=== PATIENT | female | born 1965 | race Caucasian/White ===

== ENCOUNTER → 2019-10-29 12:26 | Outpatient (BNVA) | payer BC, SELFPAY | PROVIDERS: PCP Family Medicine; Visit Provider Nurse Practitioner | DX: J06.9 Acute upper respiratory infection, unspecified (principal); J02.9 Acute pharyngitis, unspecified | CPT/HCPCS: 87081; 87880 ==

== ENCOUNTER 2020-01-05 06:00 | Outpatient (RCR) | payer BC, SELFPAY | END 2020-01-07 23:59 | disposition home or self-care (01) | LOC: SPT 06:00 | PROVIDERS: PCP Family Medicine; Referring Provider Orthopaedic Surgery; Visit Provider Orthopaedic Surgery | DX: M25.561 Pain in right knee (principal); M25.661 Stiffness of right knee, not elsewhere classified; R26.89 Other abnormalities of gait and mobility | CPT/HCPCS: 97110; 97161; 97530 ==

== ENCOUNTER 2020-01-08 06:00 | Outpatient (RCR) | payer BC, SELFPAY | END 2020-02-07 23:59 | disposition home or self-care (01) | LOC: SPT 06:00 | PROVIDERS: PCP Family Medicine; Referring Provider Orthopaedic Surgery; Visit Provider Orthopaedic Surgery | DX: M25.561 Pain in right knee (principal) | CPT/HCPCS: 97110 ==

== ENCOUNTER 2020-02-08 06:00 | Outpatient (RCR) | payer BC, SELFPAY | END 2020-03-08 23:59 | disposition home or self-care (01) | LOC: SPT 06:00 | PROVIDERS: PCP Family Medicine; Visit Provider Orthopaedic Surgery | DX: M25.561 Pain in right knee (principal) | CPT/HCPCS: 97110 ==

== ENCOUNTER 2020-04-27 06:00 | Outpatient (RCR) | payer BC, SELFPAY | END 2020-05-09 23:59 | disposition home or self-care (01) | LOC: SPT 06:00 | PROVIDERS: PCP Family Medicine; Referring Provider Family Medicine; Visit Provider Family Medicine | DX: M79.604 Pain in right leg (principal); M79.605 Pain in left leg; R29.898 Other symptoms and signs involving the musculoskeletal system; I87.2 Venous insufficiency (chronic) (peripheral) | CPT/HCPCS: 97110; 97161 ==

== ENCOUNTER 2021-01-04 10:38 | Outpatient (CLI) | payer OTHER, SELFPAY ==
--- NOTE | 2021-01-04 10:42 | XR_ITS ---
WS: [id number] Exam: XR lumbar spine 2-3V* [id number] Date/Time of Exam: 01/04/2021 10:48 AM Reason For Exam: OSTEOARTHRITIS/DDD No fracture or dislocation. Mild degenerative thinning of the L5-S1 disc with vacuum phenomena. Remai juan disc spaces are preserved. Mild dextroscoliosis. After elements are intact. XR/XR lumbar spine 2-3V* [id number] IMPRESSION: 1. Mild degenerative disc changes at L5-S1. 2. Mild dextroscoliosis. 3. No acute fracture or malalignment.
--- NOTE | 2021-01-04 10:42 | XR_ITS ---
WS: [id number] Exam: XR knee right 1-2V [id number] Date/Time of Exam: 01/04/2021 10:48 AM Reason For Exam: OSTEOARATHRITIS L KNEE No fracture or dislocation. The joint compartments are relatively well maintained. No joint effusion. XR/XR knee LT 1-2V [id number] IMPRESSION: 1. Negative right knee.
== END 2021-01-04 10:39 | disposition home or self-care (01) ==
LOC: RAD 10:38
PROVIDERS: PCP Family Medicine; Visit Provider Dermatology
DX: M17.12 Unilateral primary osteoarthritis, left knee (principal); Z02.71 Encounter for disability determination; M51.36 Other intervertebral disc degeneration, lumbar region
CPT/HCPCS: 72100; 73560

== ENCOUNTER 2021-06-13 06:00 | Outpatient (RCR) | payer BC, OTHER, SELFPAY | END 2021-07-09 23:59 | disposition home or self-care (01) | LOC: SPT 06:00 | PROVIDERS: Referring Provider Family Medicine; Visit Provider Family Medicine | DX: G89.29 Other chronic pain (principal); M54.16 Radiculopathy, lumbar region; M17.12 Unilateral primary osteoarthritis, left knee | CPT/HCPCS: 97161 ==

== ENCOUNTER → 2021-06-15 17:29 | Outpatient (BNVA) | payer BC, SELFPAY | PROVIDERS: Visit Provider Nurse Practitioner | DX: S69.90XA Unspecified injury of unspecified wrist, hand and finger(s), initial encounter (principal); X58.XXXA Exposure to other specified factors, initial encounter; S62.511A Displaced fracture of proximal phalanx of right thumb, initial encounter for closed fracture | CPT/HCPCS: 73130 ==

== ENCOUNTER 2021-06-19 16:21 | Outpatient (CLI) | payer BC, OTHER, SELFPAY | END 2021-06-19 16:22 | disposition home or self-care (01) | LOC: SPT 16:22 | PROVIDERS: Visit Provider Specialist | DX: Z46.89 Encounter for fitting and adjustment of other specified devices (principal); M54.16 Radiculopathy, lumbar region | CPT/HCPCS: 97760; L3984 ==

== ENCOUNTER → 2021-10-15 10:24 | Outpatient (BNVA) | payer BC, SELFPAY | PROVIDERS: Visit Provider Family Medicine | DX: R05.9 Cough, unspecified (principal); J06.9 Acute upper respiratory infection, unspecified; Z20.822 Contact with and (suspected) exposure to COVID-19 | CPT/HCPCS: 87400; 87635 ==

== ENCOUNTER → 2022-03-22 12:10 | Outpatient (BNVA) | payer BC, SELFPAY | PROVIDERS: PCP Family Medicine; Visit Provider Family Medicine | DX: Z13.6 Encounter for screening for cardiovascular disorders (principal); R60.1 Generalized edema; G25.81 Restless legs syndrome; J45.909 Unspecified asthma, uncomplicated | CPT/HCPCS: 80053; 80061; 84443; 85025 ==

== ENCOUNTER → 2022-04-26 11:36 | Outpatient (BNVA) | payer MEDICAID, SELFPAY | PROVIDERS: PCP Family Medicine; Visit Provider Family Medicine | DX: R60.1 Generalized edema (principal); G25.81 Restless legs syndrome; E66.01 Morbid (severe) obesity due to excess calories; Z68.43 Body mass index [BMI] 50.0-59.9, adult | CPT/HCPCS: 80048 ==

== ENCOUNTER → 2022-10-12 08:19 | Outpatient (BNVA) | payer OTHER, MEDICAID, SELFPAY | PROVIDERS: PCP Family Medicine; Visit Provider Family Medicine | DX: Z01.419 Encounter for gynecological examination (general) (routine) without abnormal findings (principal) | CPT/HCPCS: 88175 ==

== ENCOUNTER 2022-10-26 08:17 | Outpatient (CLI) | payer MEDICAID, SELFPAY ==
--- NOTE | 2022-10-26 08:27 | MM_ITS ---
WS: [id number] SCREENING DIGITAL BREAST TOMOSYNTHESIS MAMMOGRAM WITH CAD HISTORY: screening COMPARISON: None available. Bilateral CC and MLO with tomosynthesis and synthetic mammography submitted. Computer aided detection analyzed. Breast composition: There are scattered areas of fibroglandular density. Well-circumscribed nodule me asuring 8 mm in the inferior lateral RIGHT breast. This is at a middle depth at approximately 8:00. T his may be a lymph node. There are additional benign lymph nodes towards the axilla. Additional bilat eral benign calcifications. MM/[place] [id number] IMPRESSION: BI-RADS: 0-Incomplete: Need additional imaging evaluation FOLLOW UP: Need Additional Imaging Recommendation: Limited RIGHT breast ultrasound, ultrasound directed to the RIG HT breast near 8:00, middle depth.
== END 2022-10-26 08:18 | disposition home or self-care (01) ==
PROVIDERS: PCP Family Medicine; Visit Provider Family Medicine
DX: Z12.31 Encounter for screening mammogram for malignant neoplasm of breast (principal)
CPT/HCPCS: 77063; 77067; 88175

== ENCOUNTER → 2022-11-05 11:35 | Outpatient (BNVA) | payer MEDICAID, SELFPAY | PROVIDERS: PCP Family Medicine; Visit Provider Nurse Practitioner Family | DX: M25.562 Pain in left knee (principal) | CPT/HCPCS: 73562 ==

== ENCOUNTER → 2022-11-06 16:46 | Outpatient (BNVA) | payer MEDICAID, SELFPAY | PROVIDERS: PCP Family Medicine; Visit Provider Family Medicine | DX: N89.8 Other specified noninflammatory disorders of vagina (principal) | CPT/HCPCS: 87070; 87077; 87184; 87205 ==

== ENCOUNTER 2022-11-22 07:48 | Outpatient (CLI) | payer MEDICAID, SELFPAY ==
--- NOTE | 2022-11-22 07:53 | US_ITS ---
WS: [id number] ULTRASOUND RIGHT BREAST HISTORY: Follow up screening mammogram for abnormality. COMPARISON: 10/26/2022 TECHNIQUE: 2-D and Doppler. Hypoechoic mass with shadowing in the RIGHT breast at 8:00, 3 cm from the nipple. Hypoechoic mass allen sures 4 x 3 x 8 mm and does correspond to the mammographic abnormality. There is also a smaller cyst at 9:00, 1 cm from the nipple. US/US breast RT limited* [id number] IMPRESSION: BI-RADS: 4-Suspicious Finding-Biopsy Should Be Considered FOLLOW-UP: Biopsy Recommended Ultrasound-guided biopsy recommended RIGHT breast mass at 8:00. Notified Lilian Carrion DO at 11/22/2022 8:29 AM.
== END 2022-11-22 07:49 | disposition home or self-care (01) ==
PROVIDERS: PCP Family Medicine; Visit Provider Family Medicine
DX: R92.8 Other abnormal and inconclusive findings on diagnostic imaging of breast (principal); N63.13 Unspecified lump in the right breast, lower outer quadrant
CPT/HCPCS: 76642

== ENCOUNTER 2022-12-06 11:13 | Outpatient (CLI) | payer MEDICAID, SELFPAY ==
--- NOTE | 2022-12-06 12:00 | US_ITS ---
WS: [id number] ULTRASOUND-GUIDED RIGHT BREAST BIOPSY HISTORY: Abnormality. COMPARISON: 11/22/2022, 10/26/2022. Procedure, risks and complications are explained to the patient. Medications are reviewed. Consent is obtained. The mass in the RIGHT breast is localized with ultrasound. Mass localizes to 8:00, 3 cm from the nipp le. Skin is cleansed with ChloraPrep and anesthetized with 1% buffered lidocaine. Small dermatome is made. Under sterile conditions mass is biopsied with a 14-gauge Achieve needle. Multiple core biopsie s are performed. Material placed in formalin and sent to pathology for review. No complications encou ntered. Breast tissue marker (Bard ultrasound enhanced ribbon): None. Patient left the radiology suite with no complications. Patient is instructed to return to [facility] with any concerns. US/[place] [id number] IMPRESSION: 1. Uncomplicated core needle biopsy RIGHT breast mass at 8:00, 3 cm from the n ipple. PATHOLOGY: Benign breast tissue with focal tubular adenosis. No atypia or malig randolph. RECOMMENDATION: 6 month RIGHT diagnostic mammogram and ultrasound follow-up rec ommended. Six-month follow-up strongly recommended to confirm there is no incre ase in size of the abnormality in the RIGHT breast.
== END 2022-12-06 11:14 | disposition home or self-care (01) ==
LOC: RAD 11:15
PROVIDERS: PCP Family Medicine; Visit Provider Family Medicine
DX: N63.13 Unspecified lump in the right breast, lower outer quadrant (principal); N60.21 Fibroadenosis of right breast
CPT/HCPCS: 19083; 88305

== ENCOUNTER 2023-01-25 02:37 | Emergency (ER) | payer MEDICAID, SELFPAY ==
[2023-01-25] VITALS (7 sets, daily range): BP systolic 119–233; BP diastolic 64–162; PULSE 54–84; RESP 16–22; TEMP 36.3; O2SAT 94–97; BMI 45.3
--- NOTE | 2023-01-25 02:51 | ECG_ITS ---
[facility] Test Date: 2023-01-25 Pat Name: Libia Hyaden Department: Room: Gender: Female Joint Finisher: : 1965 Requested By: Rian Henderson Order Number: [id number] Olivia MD: Yaa Castaneda M.D. Measurements Intervals [place] Rate: 67 P: 63 VT: 180 QRS: 4 QRSD: 85 T: 39 QT: 383 QTc: 405 Interpretive Statements SINUS RHYTHM LOW QRS VOLTAGE IN PRECORDIAL LEADS [QRS DEFLECTION < 1.0 mV IN CHEST LEADS] POSSIBLE ANTERIOR MYOCARDIAL INFARCTION , PROBABLY OLD [30 ms Q WAVE IN V3/V4, OR R < 0.2 mV IN V4] No previous ECG available for comparison Electronically Signed On 01-25-2023 12:34:45 CDT by Yaa Castaneda M.D. [id number]
--- NOTE | 2023-01-25 03:00 | XRR_ITS ---
PROCEDURE INFORMATION: Exam: XR Chest Exam date and time: 01/25/2023 3:23 AM Age: 57 years old Clinical indication: Prior surgery; Surgery date: 6+ months; Surgery type: Thyroidectomy; Patient HX: C/O epigastric pain; Additional info: Cp TECHNIQUE: Imaging protocol: Radiologic exam of the chest. Views: 1 view. COMPARISON: No relevant prior studies available. FINDINGS: Lungs: Unremarkable. No consolidation. Small left lower lung calcified granulomas. Pleural spaces: Unremarkable. No pleural effusion. No pneumothorax. Heart/Mediastinum: Unremarkable. No cardiomegaly. Bones/joints: Unremarkable. XR/XR chest 1V portable [id number] IMPRESSION: No acute findings.
--- NOTE | 2023-01-25 03:00 | XRR_ITS ---
PROCEDURE INFORMATION: Exam: XR Lumbosacral Spine Exam date and time: 01/25/2023 3:23 AM Age: 57 years old Clinical indication: Injury or trauma; Blunt trauma (contusions or hematomas); Patient HX: Fall yesterday. C/O worsening mid back pain TECHNIQUE: Imaging protocol: Radiologic exam of the lumbosacral spine. Views: 2 or 3 views. COMPARISON: CR XR lumbar spine 2-3V* [id number] 01/04/2021 10:55 AM FINDINGS: Bones/joints: Mild lordosis. L5-S1 facet joint arthropathy changes with sclerosis and hypertrophy. Mild severity multilevel disc height loss. No acute fracture. Normal alignment. Soft tissues: Unremarkable. XR/XR lumbar spine 2-3V* [id number] IMPRESSION: No acute findings.
--- NOTE | 2023-01-25 03:01 | W.ED.ABDPA2 ---
HPI - Abdominal Pain General: Chief Complaint: Abdominal Pain Stated Complaint: back pain Time Seen by Provider: 01/25/23 02:51 Source: patient Mode of arrival: ambulatory Limitations: no limitations History of Present Illness: 57-year-old female states she did have a fall yesterday did not believe she really injuries to things she states since this evening though she has been having back pain. She states that sharp pain in her mid back states it radiates into her abdomen and some radiation to her chest. States pain is sharp in nature worse with movement and worse with touch. She did vomit once denies any fevers. Associated Symptoms: Reports vomiting; Denies chills, diarrhea, dysuria, fever(s) and nausea Review of Systems Const: Denies: fever(s), chills or change in appetite Eyes: Denies: blurry vision or eye discomfort ENMT: Denies: throat pain or dental pain Card: Denies: chest pain Resp: Denies: dyspnea GI: Reports: abdominal pain and vomiting; Denies: nausea or diarrhea : Denies: dysuria Musc: Reports: back pain; Denies: neck pain Skin/Breast: Denies: rash Neuro: Denies: headache(s) PFSH ED PFSH: Medical History Edema Extensor tendinitis of foot Otitis media Restless legs syndrome Seasonal allergies Surgical History History of appendectomy History of section History of elbow surgery Both History of partial thyroidectomy History of thumb surgery Bilateral Family History Other Anesthesia complication CAD (coronary artery disease) Hyperlipidemia Hypertension Lung disease Stroke Denies family history of Diabetes Clotting disorder Dementia Psychiatric illness Chronic kidney disease (CKD) Suicide Bleeding disorder Family history of premature coronary artery disease Cancer Social History Alcohol intake: never Substance/Drug Use: never Adopted: No Lives independently: Yes Household members: spouse Marital status: Physical Exam Const: COMMON NORMALS: no acute distress, patient oriented x3 and healthy appearing HENMT: COMMON NORMALS: normocephalic and atraumatic HEAD & SCALP: normocephalic and atraumatic Neck/C-Spine: COMMON NORMALS: full ROM and supple Chest: COMMONS NORMALS: normal inspection of the chest and normal palpation of entire chest wall Resp: COMMON NORMALS: normal respiratory effort, No retractions, No use of accessory muscles and clear to auscultation bilaterally AUSCULTATION: clear to auscultation bilaterally Cardio: COMMON NORMALS: regular rate, regular rhythm and No murmurs present (Cardio) RATE: regular rate RHYTHM: regular rhythm GI: COMMON NORMALS: Normal to inspection, nondistended, normoactive bowel sounds present, Soft to palpation, non-tender and no masses PALPATION: Yes Soft to palpation Back/Pelvis: OTHER: Paraspinal tenderness to the mid back no midline tenderness Extremity: COMMON NORMALS: normal to inspection and full ROM Neuro: COMMON NORMALS: patient oriented x3, moves all extremities and no focal motor deficits Psych: COMMON NORMALS: mental status grossly normal, Normal thought process present and cooperative THOUGHT PROCESS: Normal thought process present Skin: COMMON NORMALS: no rashes or lesions noted and no wounds GENERAL SKIN EXAM: no rashes or lesions noted Course Vital Signs: Vital signs: Vital Signs Temperature 97.4 F L 01/25/23 02:50 Pulse Rate 84 01/25/23 02:50 Respiratory Rate 16 01/25/23 03:07 Blood Pressure 233/162 01/25/23 02:50 Pulse Oximetry 95 01/25/23 03:07 Oxygen Delivery Me thod Room Air 01/25/23 02:50 MDM - Abdominal Pain Medical Decision Making Patient presents here with back pains likely muscular in nature she is point tender blood work and urine here is normal no signs of kidney stone no signs of acute surgical abdomen or appendicitis she is stable for discharge we will place her on Naprosyn and Robaxin she is to follow-up with PCP and return if worsening. Medical Records I reviewed the patient's medical records. Lab Data I reviewed the patient's lab results. 01/25/23 03:05 01/25/23 03:05 Labs/Radiology: Laboratory Results WBC 6.5 10^3/uL (4.0-10.0) 01/25/23 03:05 RBC 5.21 10^6/uL (4.1-5.3) 01/25/23 03:05 Hgb 13.3 g/dL (11.5-15.3) 01/25/23 03:05 Hct 44.5 % (37.0-47.0) 01/25/23 03:05 MCV 85.4 fl (81-99) 01/25/23 03:05 MCH 25.5 pg (28.0-34.0) L 01/25/23 03:05 MCHC 29.9 g/dL (30.0-36.0) L 01/25/23 03:05 RDW 13.7 % (12.1-15.1) 01/25/23 03:05 Plt Count 280 10^3/cmm (130-400) 01/25/23 03:05 MPV 9.5 fL (7.4-10.4) 01/25/23 03:05 Neut % (Auto) 59.0 % 01/25/23 03:05 Lymph % (Auto) 28.4 % 01/25/23 03:05 Kane % (Auto) 9.8 % 01/25/23 03:05 Eos % (Auto) 2.1 % 01/25/23 03:05 Baso % (Auto) 0.5 % 01/25/23 03:05 Neut # (Auto) 3.86 10^3/uL (1.8-7.7) 01/25/23 03:05 Lymph # (Auto) 1.9 10^3/uL (0.8-4.8) 01/25/23 03:05 Kane # (Auto) 0.6 10^3/uL (0.2-0.9) 01/25/23 03:05 Eos # (Auto) 0.1 10^3/uL (0.0-0.8) 01/25/23 03:05 Baso # (Auto) 0.0 10^3/uL (0.0-0.1) 01/25/23 03:05 Nucleated RBC % (auto) 0 % 01/25/23 03:05 Nucleated RBCs # 0.0 /100WBC 01/25/23 03:05 EKG Data EKG 1: I personally reviewed and interpreted this EKG as follows: EKG interpretation date: 01/25/23 EKG interpretation time: 02:51 Interpretation: nsr hr [address] or t wave abnormalities qrs 85 qtc 398 Discharge Plan Discharge Condition: Stable Prescriptions: No Action Prilosec 10 mg susp,delayed release for recon 10 mg PO DAILY budesonide-formoterol [Symbicort] 160-4.5 mcg/actuation HFA aerosol inhaler 2 puff inhalation Q12H Qty: 10.2 2RF ropinirole 0.5 mg tablet 0.5 mg PO QID Qty: 120 5RF montelukast [Singulair] 10 mg tablet 10 mg PO DAILY Qty: 30 5RF fluconazole [Diflucan] 150 mg tablet 150 mg PO Q3D Qty: 2 0RF Rx Instructions: may repeat second dose 72 hrs after first dose if symptoms persist loratadine [Claritin] 10 mg tablet 10 mg PO DAILY multivitamin with iron [Daily Vitamin with Iron] Tablet 1 tab PO DAILY magnesium 200 mg tablet 200 mg PO DAILY Victoza 3-Gibran 0.6 mg/0.1 mL (18 mg/3 mL) pen injector 1.2 mg SUBCUT Q24H Qty: 9 0RF Rx Instructions: Please dispense needle tips as well. prednisone 20 mg tablet 20 mg PO DAILY Qty: 5 0RF Rx Instructions: Take in the AM with food diclofenac sodium 3 % gel 1 applic topical BID Qty: 100 0RF cyclobenzaprine 5 mg tablet 5 mg PO TID PRN (Reason: muscle spasm) Qty: 20 0RF albuterol sulfate 90 mcg/actuation aerosol powdr breath activated 2 inh inhalation Q6H PRN (Reason: shortness of breath or wheezing) Qty: 1 1RF Referrals: Lilian Carrion DO [Primary Care Provider] - Coding Level of Care Code ED Sheet Combining Operator for Levi Moraels
--- NOTE | 2023-01-25 03:03 | XRR_ITS ---
PROCEDURE INFORMATION: Exam: XR Thoracic Spine Exam date and time: 01/25/2023 3:23 AM Age: 57 years old Clinical indication: Injury or trauma; Blunt trauma (contusions or hematomas); Patient HX: Fall yesterday. C/O worsening mid back pain TECHNIQUE: Imaging protocol: Radiologic exam of the thoracic spine. Views: 3 views. COMPARISON: CR XR lumbar spine 2-3V* [id number] 01/04/2021 10:55 AM FINDINGS: Bones/joints: Normal. No acute fracture. Normal alignment. Soft tissues: Unremarkable. XR/XR thoracic spine 3V* [id number] IMPRESSION: No acute findings.
[2023-01-25] MEDS: ondansetron 2 mg/ML SDV 2 mL 4 MG IVP (03:07)
[2023-01-25] MEDS: HYDROmorphone 1 mg/mL INJ 1 mL IVP (03:07)
[2023-01-25 03:12] LABS: Basophils % 0.5 %; Eosinophils # 0.1 10^3/uL (0.0-0.8); Eosinophils % 2.1 %; Hematocrit 44.5 % (37.0-47.0); Hemoglobin 13.3 g/dL (11.5-15.3); Lymphocytes # 1.9 10^3/uL (0.8-4.8); Lymphocytes % 28.4 %; Mean Corpuscular HGB Conc 29.9 g/dL (30.0-36.0); Mean Corpuscular Hemoglobin 25.5 pg (28.0-34.0); Mean Corpuscular Volume 85.4 fl (81-99); Mean Platelet Volume 9.5 fL (7.4-10.4); Monocytes # 0.6 10^3/uL (0.2-0.9); Monocytes % 9.8 %; Neutrophils # 3.86 10^3/uL (1.8-7.7); Nucleated Red Blood Cells % 0 %; Platelet Count 280 10^3/cmm (130-400); Red Blood Count 5.21 10^6/uL (4.1-5.3); Red Cell Distribution Width 13.7 % (12.1-15.1); White Blood Count 6.5 10^3/uL (4.0-10.0)
[2023-01-25 03:34] LABS: Troponin(5th) Baseline 7 ng/L (0-10)
[2023-01-25 03:36] LABS: Alanine Aminotransferase 20 U/L (0-33); Alkaline Phosphatase 107 U/L (35-105); Blood Urea Nitrogen 13 mg/dL (6-20); Calcium 9.2 mg/dL (8.5-10.5); Carbon Dioxide 24 mmol/L (22-29); Chloride 106 mmol/L (98-107); Globulin 2.6 g/dL (1.3-4.6); Glomerular Filtration Rate 74.5 mL/min (90-130); Glucose 135 mg/dL (65-115); Osmolality Calculated 294 mOsm/kg (285-295); Sodium 141 mmol/L (136-145); Total Bilirubin 0.3 mg/dL (0.15-1.2); Total Protein 6.6 g/dL (6.6-8.7)
[2023-01-25 03:37] LABS: Anion Gap 15.2 (5-19); Aspartate Amino Transferase 18 U/L (0-32); Potassium 4.2 mmol/L (3.5-5.1)
[2023-01-25 03:54] LABS: Add Urine Microscopic? NO; Charge for UA Resulting for Rev
[2023-01-25 04:00] LABS: Urine Appearance Clear (CLEAR); Urine Color Yellow (Yellow)
[2023-01-25 04:01] LABS: Bilirubin Urine Neg (Negative); Blood Urine Neg (Negative); Glucose Urine UA Norm (Normal); Ketones Urine Negative (Negative); Leukocyte Esterase Urine Negative (Negative); Nitrate Urine Negative (Negative); Protein Urine Neg (Negative); Urobilinogen Urine Neg (Negative); pH Urine 5 (5-7)
--- NOTE | 2023-01-25 04:11 | USR_ITS ---
PROCEDURE INFORMATION: Exam: US Abdomen, Limited; Right Upper Quadrant Exam date and time: 01/25/2023 4:23 AM Age: 57 years old Clinical indication: Abdominal pain; Other: Non-characteristic for gb, pain is mid back pain, which radiates across the upper abdomen; Additional info: Ruq pain TECHNIQUE: Imaging protocol: Real time ultrasound of the abdomen with image documentation. Limited exam focused on the right upper quadrant. COMPARISON: No relevant prior studies available. FINDINGS: Liver: Normal. No masses. Gallbladder: Cholelithiasis. Diffusely thickened gallbladder wall measuring at least 12 mm. Biliary ducts: Negative for dilation. Common bile duct 5-6 mm. Pancreas: Visualized pancreas is unremarkable. Right kidney: Severely atrophic right renal cortex without hydronephrosis. Probable simple upper pole cortical cyst. Left kidney: Severe left renal cortical thinning. Negative for hydronephrosis. Aorta: Abdominal aorta is nonaneurysmal. Portal venous: Portal vein is patent with normal flow direction. Intraperitoneal space: Negative for intraperitoneal fluid collection. US/US abdomen complete* [id number] IMPRESSION: Cholelithiasis with significant diffuse gallbladder wall thickening. Consider acute cholecystitis. HIDA scan correlation may be valuable for further evaluation.
[2023-01-25 05:36] LABS: Troponin 5 2HR Delta 1.1 ABS# (0-10)
--- NOTE | 2023-01-25 08:35 | DCPLANNER ---
Addendum entered by Bina Gonzalez 02/20/23 10:18: Patient had a followup appointment scheduled with general surgery - patient did attend appointment. Addendum entered by Bnia Gonzalez 02/04/23 10:42: Patient has a follow up appointment scheduled for Sunday, February 19, 2023 at 10:[address] Nugent at general surgery. Original Note: manager protein had message to schedule a follow up appointment for patient with general surgery. manager protein sent patients information to the front office staff at general surgery. Patients information will be printed and reviewed. Clinic will call patient with appointment information.
== END 2023-01-25 05:21 | disposition home or self-care (01) ==
PROVIDERS: Emergency Provider Emergency Medicine; PCP Family Medicine
DX: K80.20 Calculus of gallbladder without cholecystitis without obstruction (principal)
CPT/HCPCS: 71045; 72072; 72100; 76700; 80053; 81003; 84484; 85025; 93005; 96374; 96375; 99285; J1170; J2405

== ENCOUNTER → 2023-02-19 10:32 | Outpatient (BNVA) | payer MEDICARE, MEDICAID, SELFPAY | PROVIDERS: PCP Family Medicine; Referring Provider Emergency Medicine; Visit Provider Surgery | DX: K80.20 Calculus of gallbladder without cholecystitis without obstruction (principal) | CPT/HCPCS: 99203 ==

== ENCOUNTER 2023-03-15 06:57 | Emergency (ER) | payer MEDICARE, MEDICAID, SELFPAY ==
[2023-03-15] VITALS (17 sets, daily range): BP systolic 108–168; BP diastolic 66–98; PULSE 75; RESP 17–18; TEMP 36.6; O2SAT 87–97; BMI 47.0
--- NOTE | 2023-03-15 07:48 | US_ITS ---
WS: [id number] Gallbladder and right upper quadrant ultrasound, 03/15/2023 Clinical Data: Right upper quadrant abdominal pain, N/V/D Comparison: Right upper quadrant ultrasound, 01/25/2023 Findings: The gallbladder shows multiple stones unchanged. The wall measures 0.2 cm with no pericholecystic flu id. The common bile duct is 0.3 cm and there are no intrahepatic ductal abnormalities. Liver shows no cysts, masses or dilated intrahepatic ducts. The portal vein shows normal flow. The li marisol is slightly enlarged at 20.72 cm. The echotexture is mixed. The pancreas is obscured by overlying bowel gas but no cyst, pseudocyst, or evidence of pancreatitis is noted. Right kidney measures 11.0 cm and no cyst, masses or hydronephrosis can be seen. However there is cor tical thinning. The aorta and inferior vena cava show no vascular abnormalities. US/US gall bladder [id number] Impression: 1. Cholelithiasis. 2. Hepatomegaly. 3. Cortical thinning of right kidney.
--- NOTE | 2023-03-15 07:50 | W.ED.ABDPA2 ---
Documented by User: DEIDRE Araya 03/15/23 11:05 HPI - Abdominal Pain General: Chief Complaint: Abdominal Pain Stated Complaint: abd pain, N/V Time Seen by Provider: 03/15/23 07:04 History of Present Illness: Patient is a 57-year-old female who comes to the ED with abdominal pain, nausea and vomiting. Patient states she is had these gallbladder issues in the past and was seen here in the ED back on January 25 for same complaint and has seen the general surgeon Dr. Nugent and has a scheduled cholecystectomy next week. Symptoms started when she woke up approximately 2 to 3 days ago. She was having right upper quadrant abdominal pain that she rates a 8 out of 10. Endorses nausea and vomiting as well and has had trouble keeping any food or fluids down. Endorses chills and diarrhea. Patient says she took some tramadol yesterday for pain and it did not help. Denies any fevers, blood in stool, dysuria or hematuria. Associated Symptoms: Reports diarrhea, nausea and vomiting; Denies chills, constipation, dysuria, fever(s), hematochezia and hematuria Review of Systems Const: Denies: fever(s), chills or fatigue Eyes: Denies: change in vision or eye discomfort ENMT: Denies: throat pain, odynophagia, nasal discharge or nasal congestion Card: Denies: chest pain, palpitations, edema, swelling of feet/ankles, dyspnea on exertion or orthopnea Resp: Denies: dyspnea, productive cough or non-productive cough GI: Reports: abdominal pain, nausea, vomiting and diarrhea; Denies: constipation or hematochezia : Denies: flank pain, dysuria or hematuria Musc: Denies: neck pain, back pain or extremity swelling Skin/Breast: Denies: rash or new lesions Neuro: Denies: headache(s), numbness in extremities or weakness in extremities PFSH ED PFSH: Medical History Edema Extensor tendinitis of foot Otitis media Restless legs syndrome Seasonal allergies Surgical History History of appendectomy History of section History of elbow surgery Both History of partial thyroidectomy History of thumb surgery Bilateral Hx of colonoscopy with polypectomy 3 yrs ago Hx of meniscectomy of right knee Family History Other Anesthesia complication CAD (coronary artery disease) Hyperlipidemia Hypertension Lung disease Stroke Denies family history of Diabetes Clotting disorder Dementia Psychiatric illness Chronic kidney disease (CKD) Suicide Bleeding disorder Family history of premature coronary artery disease Cancer Social History Alcohol intake: never Substance/Drug Use: never Adopted: No Lives independently: Yes Household members: spouse Marital status: Physical Exam Const: COMMON NORMALS: no acute distress, patient oriented x3 and alert HENMT: COMMON NORMALS: normocephalic HEAD & SCALP: normocephalic MOUTH: Normal oral and palatal mucosa present THROAT: posterior oropharynx normal and uvula midline Neck/C-Spine: COMMON NORMALS: supple GENERAL: Yes normal visual inspection Resp: COMMON NORMALS: normal respiratory effort, No retractions, No use of accessory muscles and clear to auscultation bilaterally AUSCULTATION: clear to auscultation bilaterally Cardio: COMMON NORMALS: regular rate, regular rhythm, S1 normal heart sound present, S2 normal heart sound present, No gallops present (Cardio), No clicks present (Cardio), No murmurs present (Cardio) and Peripheral pulses 2+ throughout RATE: regular rate RHYTHM: regular rhythm HEART SOUNDS: S1 normal heart sound present and S2 normal heart sound present PERIPHERAL PULSES: Peripheral pulses 2+ throughout GI: COMMON NORMALS: Normal to inspection, nondistended, normoactive bowel sounds present, Soft to palpation and no masses PALPATION: Yes Soft to palpation and Yes Tenderness to palpation present (GI) Details: RUQ OTHER: No signs of acute abdomen. : COMMON NORMALS: Yes no CVA tenderness BLADDER/KIDNEY EXAM: Yes no CVA tenderness Back/Pelvis: COMMON NORMALS: no CVA tenderness Extremity: COMMON NORMALS: normal to inspection Neuro: COMMON NORMALS: patient oriented x3 SENSORIUM/ORIENTATION: Yes alert GAIT: Yes Normal gait present Skin: GENERAL SKIN EXAM: dry skin Course Vital Signs: Vital signs: Vital Signs Temperature 97.9 F 03/15/23 07:12 Pulse Rate 75 03/15/23 07:12 Respiratory Rate 18 03/15/23 08:36 Blood Pressure 129/83 07/07/23 10:30 Pulse Oximetry 92 03/15/23 10:30 Oxygen Delivery Me thod Room Air 03/15/23 07:12 MDM - Abdominal Pain Medical Decision Making Patient is a 57-year-old female who comes to the ED with abdominal pain, nausea and vomiting. Patient states she is had these gallbladder issues in the past and was seen here in the ED back on January 25 for same complaint and has seen the general surgeon Dr. Nugent and has a scheduled cholecystectomy next week. Symptoms started when she woke up approximately 2 to 3 days ago. She was having right upper quadrant abdominal pain that she rates a 8 out of 10. Endorses nausea and vomiting as well and has had trouble keeping any food or fluids down. Endorses chills and diarrhea. Patient says she took some tramadol yesterday for pain and it did not help. Denies any fevers, blood in stool, dysuria or hematuria. Vitals are stable. Patient appears nontoxic and in no acute distress. Patient does have some right upper quadrant abdominal tenderness but no acute abdomen signs. Rest of exam is benign. White blood cell count 6.6, liver enzymes normal and T. bili is normal. Rest of CBC and CMP is unremarkable. Ultrasound gallbladder shows cholelithiasis but no signs of acute cholecystitis. Patient was given a liter of IV fluids, pain meds and nausea meds. Her symptoms were controlled here in the ED and she was able to tolerate p.o. fluids. Talk with Dr. Singh about patient case and he reviewed labs and imaging and agreed that this is not an emergent surgical case and with her symptoms controlled Dr. Nugent does not need to be notified and patient can follow-up with Dr. Nugent at scheduled surgery date of March 28. She was sent home with a prescription for Reglan and Percocet. She was diagnosed with cholelithiasis and biliary colic. Return to ED precautions given. Patient understood and agreed with plan. Lab Data I reviewed the patient's lab results. 03/15/23 08:32 03/15/23 08:32 Labs/Radiology: Radiology Impressions Gallbladder Ultrasound 03/15/23 07:48 Impression: 1. Cholelithiasis. 2. Hepatomegaly. 3. Cortical thinning of right kidney. Laboratory Results WBC 6.6 10^3/uL (4.0-10.0) 03/15/23 08:32 RBC 5.54 10^6/uL (4.1-5.3) H 03/15/23 08:32 Hgb 14.3 g/dL (11.5-15.3) 03/15/23 08:32 Hct 49.5 % (37.0-47.0) H 03/15/23 08:32 MCV 89.4 fl (81-99) 03/15/23 08:32 MCH 25.8 pg (28.0-34.0) L 03/15/23 08:32 MCHC 28.9 g/dL (30.0-36.0) L 03/15/23 08:32 RDW 14.3 % (12.1-15.1) 03/15/23 08:32 Plt Count 279 10^3/cmm (130-400) 03/15/23 08:32 MPV 9.4 fL (7.4-10.4) 03/15/23 08:32 Neut % (Auto) 67.9 % 03/15/23 08:32 Lymph % (Auto) 23.1 % 03/15/23 08:32 [place] % (Auto) 6.5 % 03/15/23 08:32 Eos % (Auto) 1.5 % 03/15/23 08:32 Baso % (Auto) 0.5 % 03/15/23 08:32 Neut # (Auto) 4.46 10^3/uL (1.8-7.7) 03/15/23 08:32 Lymph # (Auto) 1.5 10^3/uL (0.8-4.8) 03/15/23 08:32 [place] # (Auto) 0.4 10^3/uL (0.2-0.9) 03/15/23 08:32 Eos # (Auto) 0.1 10^3/uL (0.0-0.8) 03/15/23 08:32 Baso # (Auto) 0.0 10^3/uL (0.0-0.1) 03/15/23 08:32 Nucleated RBC % (auto) 0 % 03/15/23 08:32 Nucleated RBCs # 0.0 /100WBC 03/15/23 08:32 Sodium 138 mmol/L (136-145) 03/15/23 08:32 Potassium 4.5 mmol/L (3.5-5.1) 03/15/23 08:32 Chloride 101 mmol/L (98-107) 03/15/23 08:32 Carbon Dioxide 24 mmol/L (22-29) 03/15/23 08:32 Anion Gap 17.5 (5-19) 03/15/23 08:32 BUN 17 mg/dL (6-20) 03/15/23 08:32 Creatinine 0.8 mg/dL (0.5-0.9) 03/15/23 08:32 GFR Calculation 74.5 mL/min (90-130) L 03/15/23 08:32 Glucose 84 mg/dL (65-115) 03/15/23 08:32 Calculated Osmolality 287 mOsm/kg (285-295) 03/15/23 08:32 Calcium 9.3 mg/dL (8.5-10.5) 03/15/23 08:32 Total Bilirubin 0.6 mg/dL (0.15-1.2) 03/15/23 08:32 AST 16 U/L (0-32) 03/15/23 08:32 ALT 21 U/L (0-33) 03/15/23 08:32 Alkaline Phosphatase 115 U/L (35-105) H 03/15/23 08:32 Total Protein 7.2 g/dL (6.6-8.7) 03/15/23 08:32 Albumin 4.2 g/dL (3.5-5.2) 03/15/23 08:32 Globulin 3.0 g/dL (1.3-4.6) 03/15/23 08:32 Lipase 33 U/L (13-60) 03/15/23 08:32 HCG, Qual Negative (Negative) 03/15/23 08:32 Urine Color Yellow (Yellow) 03/15/23 08:17 Urine Appearance Clear (CLEAR) 03/15/23 08:17 Urine pH 6.5 (5-7) 03/15/23 08:17 Ur Specific [place] 1.015 (1.005-1.030) 03/15/23 08:17 Urine Protein Neg (Negative) 03/15/23 08:17 Urine Glucose (UA) Norm (Normal) 03/15/23 08:17 Urine Ketones Negative (Negative) 03/15/23 08:17 Urine Blood Neg (Negative) 03/15/23 08:17 Urine Nitrate Negative (Negative) 03/15/23 08:17 Urine Bilirubin Neg (Negative) 03/15/23 08:17 Urine Urobilinogen Norm mg/dL (Negative) 03/15/23 08:17 Ur Leukocyte Esterase Negative (Negative) 03/15/23 08:17 Discharge Plan Discharge Patient Disposition: Home Clinical Impression: Cholelithiasis, Biliary colic symptom Condition: Stable Prescriptions: New metoclopramide HCl 10 mg tablet 10 mg PO Q6H PRN (Reason: nausea and vomiting) Qty: 30 0RF No Action Prilosec 10 mg susp,delayed release for recon 10 mg PO DAILY montelukast [Singulair] 10 mg tablet 10 mg PO DAILY Qty: 30 5RF ropinirole 0.5 mg tablet 0.5 mg PO QID Qty: 120 5RF budesonide-formoterol [Symbicort] 160-4.5 mcg/actuation HFA aerosol inhaler 2 puff inhalation Q12H Qty: 10.2 5RF albuterol sulfate 90 mcg/actuation aerosol powdr breath activated 2 inh inhalation Q6H PRN (Reason: shortness of breath or wheezing) Qty: 1 5RF bumetanide 1 mg tablet 1 mg PO DAILY Qty: 7 0RF Victoza 3-Gibran 0.6 mg/0.1 mL (18 mg/3 mL) pen injector 1.8 mg SUBCUT Q24H Qty: 9 0RF Rx Instructions: Please dispense needle tips as well. loratadine [Claritin] 10 mg tablet 10 mg PO DAILY multivitamin with iron [Daily Vitamin with Iron] Tablet 1 tab PO DAILY fluticasone propionate [Flonase Allergy Relief] 50 mcg/actuation spray,suspension 2 spray intranasal DAILY Qty: 16 0RF Rx Instructions: administer into each nostril ondansetron 4 mg tablet,disintegrating 4 mg PO Q6H PRN (Reason: nausea and vomiting) Qty: 14 0RF tramadol 50 mg tablet 50 mg PO Q6H PRN (Reason: pain) Qty: 20 0RF Discharge Orders: Discharge ED (Routine); Ordered 03/15/23 Ordered By: Christopher Mendes Referrals: Lambert,Lilian, DO [Primary Care Provider] - Discharge Diet: Advance as tolerated and Clear Liquid Discharge Activity: Increase activity as tolerated Patient Instructions: Cholelithiasis, Biliary Colic (ED), Opioid Safety Activity Restrictions/Additional Instructions: Follow-up with medical provider as directed at your scheduled appointment to have your gallbladder removed on 03/28/2023. Clear liquid diet for the next 24 hours and slowly advance diet as tolerated. Take medications as prescribed. Return to the ER or your medical provider if condition worsens. Please read and understand discharge instructions. Thank you for choosing [facility] for your healthcare needs today. Please realize this is an emergency room and that we are providing you with a medical screening exam and this may not be complete and all inclusive of all the testing and or work up that you may need to determine your ailment or severity of your illness. It is very important that you follow up as instructed or that you return to the Emergency Department should you have concerns or if your condition changes or worsens in any way. Coding Level of Care Code ED Equipment Oiler for Chg Fwd Documented by User: Santy Singh DO 03/15/23 13:43 HPI - Abdominal Pain General: Chief Complaint: Abdominal Pain Stated Complaint: abd pain, N/V Time Seen by Provider: 03/15/23 07:04 [facility] ED PFSH: Medical History Edema Extensor tendinitis of foot Otitis media Restless legs syndrome Seasonal allergies Surgical History History of appendectomy History of section History of elbow surgery Both History of partial thyroidectomy History of thumb surgery Bilateral Hx of colonoscopy with polypectomy 3 yrs ago Hx of meniscectomy of right knee Family History Other Anesthesia complication CAD (coronary artery disease) Hyperlipidemia Hypertension Lung disease Stroke Denies family history of Diabetes Clotting disorder Dementia Psychiatric illness Chronic kidney disease (CKD) Suicide Bleeding disorder Family history of premature coronary artery disease Cancer Social History Alcohol intake: never Substance/Drug Use: never Adopted: No Lives independently: Yes Household members: spouse Marital status: Course Vital Signs: Vital signs: Vital Signs Temperature 97.9 F 03/15/23 07:12 Pulse Rate 75 03/15/23 07:12 Respiratory Rate 18 03/15/23 08:36 Blood Pressure 129/83 03/15/23 10:30 Pulse Oximetry 92 03/15/23 10:30 Oxygen Delivery Me thod Room Air 03/15/23 07:12 MDM - Abdominal Pain Medical Decision Making Patient is a 57-year-old female who comes to the ED with abdominal pain, nausea and vomiting. Patient states she is had these gallbladder issues in the past and was seen here in the ED back on January 25 for same complaint and has seen the general surgeon Dr. Nugent and has a scheduled cholecystectomy next week. Symptoms started when she woke up approximately 2 to 3 days ago. She was having right upper quadrant abdominal pain that she rates a 8 out of 10. Endorses nausea and vomiting as well and has had trouble keeping any food or fluids down. Endorses chills and diarrhea. Patient says she took some tramadol yesterday for pain and it did not help. Denies any fevers, blood in stool, dysuria or hematuria. Vitals are stable. Patient appears nontoxic and in no acute distress. Patient does have some right upper quadrant abdominal tenderness but no acute abdomen signs. Rest of exam is benign. White blood cell count 6.6, liver enzymes normal and T. bili is normal. Rest of CBC and CMP is unremarkable. Ultrasound gallbladder shows cholelithiasis but no signs of acute cholecystitis. Patient was given a liter of IV fluids, pain meds and nausea meds. Her symptoms were controlled here in the ED and she was able to tolerate p.o. fluids. Talk with Dr. Singh about patient case and he reviewed labs and imaging and agreed that this is not an emergent surgical case and with her symptoms controlled Dr. Nugent does not need to be notified and patient can follow-up with Dr. Nugent at scheduled surgery date of March 28. She was sent home with a prescription for Reglan and Percocet. She was diagnosed with cholelithiasis and biliary colic. Return to ED precautions given. Patient understood and agreed with plan. Chart reviewed and patient discussed with midlevel. Agree with assessment and plan. Lab Data 03/15/23 08:32 03/15/23 08:32 Labs/Radiology: Radiology Impressions Gallbladder Ultrasound 03/15/23 07:48 Impression: 1. Cholelithiasis. 2. Hepatomegaly. 3. Cortical thinning of right kidney. Laboratory Results WBC 6.6 10^3/uL (4.0-10.0) 03/15/23 08:32 RBC 5.54 10^6/uL (4.1-5.3) H 03/15/23 08:32 Hgb 14.3 g/dL (11.5-15.3) 03/15/23 08:32 Hct 49.5 % (37.0-47.0) H 03/15/23 08:32 MCV 89.4 fl (81-99) 03/15/23 08:32 MCH 25.8 pg (28.0-34.0) L 03/15/23 08:32 MCHC 28.9 g/dL (30.0-36.0) L 03/15/23 08:32 RDW 14.3 % (12.1-15.1) 03/15/23 08:32 Plt Count 279 10^3/cmm (130-400) 03/15/23 08:32 MPV 9.4 fL (7.4-10.4) 03/15/23 08:32 Neut % (Auto) 67.9 % 03/15/23 08:32 Lymph % (Auto) 23.1 % 03/15/23 08:32 [place] % (Auto) 6.5 % 03/15/23 08:32 Eos % (Auto) 1.5 % 03/15/23 08:32 Baso % (Auto) 0.5 % 03/15/23 08:32 Neut # (Auto) 4.46 10^3/uL (1.8-7.7) 03/15/23 08:32 Lymph # (Auto) 1.5 10^3/uL (0.8-4.8) 03/15/23 08:32 [place] # (Auto) 0.4 10^3/uL (0.2-0.9) 03/15/23 08:32 Eos # (Auto) 0.1 10^3/uL (0.0-0.8) 03/15/23 08:32 Baso # (Auto) 0.0 10^3/uL (0.0-0.1) 03/15/23 08:32 Nucleated RBC % (auto) 0 % 03/15/23 08:32 Nucleated RBCs # 0.0 /100WBC 03/15/23 08:32 Sodium 138 mmol/L (136-145) 03/15/23 08:32 Potassium 4.5 mmol/L (3.5-5.1) 03/15/23 08:32 Chloride 101 mmol/L (98-107) 03/15/23 08:32 Carbon Dioxide 24 mmol/L (22-29) 03/15/23 08:32 Anion Gap 17.5 (5-19) 03/15/23 08:32 BUN 17 mg/dL (6-20) 03/15/23 08:32 Creatinine 0.8 mg/dL (0.5-0.9) 03/15/23 08:32 GFR Calculation 74.5 mL/min (90-130) L 03/15/23 08:32 Glucose 84 mg/dL (65-115) 03/15/23 08:32 Calculated Osmolality 287 mOsm/kg (285-295) 03/15/23 08:32 Calcium 9.3 mg/dL (8.5-10.5) 03/15/23 08:32 Total Bilirubin 0.6 mg/dL (0.15-1.2) 03/15/23 08:32 AST 16 U/L (0-32) 03/15/23 08:32 ALT 21 U/L (0-33) 03/15/23 08:32 Alkaline Phosphatase 115 U/L (35-105) H 03/15/23 08:32 Total Protein 7.2 g/dL (6.6-8.7) 03/15/23 08:32 Albumin 4.2 g/dL (3.5-5.2) 03/15/23 08:32 Globulin 3.0 g/dL (1.3-4.6) 03/15/23 08:32 Lipase 33 U/L (13-60) 03/15/23 08:32 HCG, Qual Negative (Negative) 03/15/23 08:32 Urine Color Yellow (Yellow) 03/15/23 08:17 Urine Appearance Clear (CLEAR) 03/15/23 08:17 Urine pH 6.5 (5-7) 03/15/23 08:17 Ur Specific [place] 1.015 (1.005-1.030) 03/15/23 08:17 Urine Protein Neg (Negative) 03/15/23 08:17 Urine Glucose (UA) Norm (Normal) 03/15/23 08:17 Urine Ketones Negative (Negative) 03/15/23 08:17 Urine Blood Neg (Negative) 03/15/23 08:17 Urine Nitrate Negative (Negative) 03/15/23 08:17 Urine Bilirubin Neg (Negative) 03/15/23 08:17 Urine Urobilinogen Norm mg/dL (Negative) 03/15/23 08:17 Ur Leukocyte Esterase Negative (Negative) 03/15/23 08:17 Discharge Plan Discharge Patient Disposition: Home Clinical Impression: Cholelithiasis, Biliary colic symptom Condition: Stable Prescriptions: New metoclopramide HCl 10 mg tablet 10 mg PO Q6H PRN (Reason: nausea and vomiting) Qty: 30 0RF No Action Prilosec 10 mg susp,delayed release for recon 10 mg PO DAILY montelukast [Singulair] 10 mg tablet 10 mg PO DAILY Qty: 30 5RF ropinirole 0.5 mg tablet 0.5 mg PO QID Qty: 120 5RF budesonide-formoterol [Symbicort] 160-4.5 mcg/actuation HFA aerosol inhaler 2 puff inhalation Q12H Qty: 10.2 5RF albuterol sulfate 90 mcg/actuation aerosol powdr breath activated 2 inh inhalation Q6H PRN (Reason: shortness of breath or wheezing) Qty: 1 5RF bumetanide 1 mg tablet 1 mg PO DAILY Qty: 7 0RF Victoza 3-Gibran 0.6 mg/0.1 mL (18 mg/3 mL) pen injector 1.8 mg SUBCUT Q24H Qty: 9 0RF Rx Instructions: Please dispense needle tips as well. loratadine [Claritin] 10 mg tablet 10 mg PO DAILY multivitamin with iron [Daily Vitamin with Iron] Tablet 1 tab PO DAILY fluticasone propionate [Flonase Allergy Relief] 50 mcg/actuation spray,suspension 2 spray intranasal DAILY Qty: 16 0RF Rx Instructions: administer into each nostril ondansetron 4 mg tablet,disintegrating 4 mg PO Q6H PRN (Reason: nausea and vomiting) Qty: 14 0RF tramadol 50 mg tablet 50 mg PO Q6H PRN (Reason: pain) Qty: 20 0RF Discharge Orders: Discharge ED (Routine); Ordered 03/15/23 Ordered By: Christopher Mendes Referrals: Lilian Carrion DO [Primary Care Provider] - Discharge Diet: Advance as tolerated and Clear Liquid Discharge Activity: Increase activity as tolerated Patient Instructions: Cholelithiasis, Biliary Colic (ED), Opioid Safety Activity Restrictions/Additional Instructions: Follow-up with medical provider as directed at your scheduled appointment to have your gallbladder removed on 03/28/2023. Clear liquid diet for the next 24 hours and slowly advance diet as tolerated. Take medications as prescribed. Return to the ER or your medical provider if condition worsens. Please read and understand discharge instructions. Thank you for choosing [facility] for your healthcare needs today. Please realize this is an emergency room and that we are providing you with a medical screening exam and this may not be complete and all inclusive of all the testing and or work up that you may need to determine your ailment or severity of your illness. It is very important that you follow up as instructed or that you return to the Emergency Department should you have concerns or if your condition changes or worsens in any way. Coding Level of Care Code ED Equipment Oiler for Levi Morales
[2023-03-15] MEDS: ondansetron 2 mg/ML SDV 2 mL 4 MG IVP (08:34)
[2023-03-15] MEDS: HYDROmorphone 1 mg/mL INJ 1 mL IVP (08:36)
[2023-03-15] MEDS: sodium chloride 0.9% 1,000 ML 999 ML IV (08:43)
[2023-03-15 08:53] LABS: Basophils % 0.5 %; Eosinophils # 0.1 10^3/uL (0.0-0.8); Eosinophils % 1.5 %; Hematocrit 49.5 % (37.0-47.0); Hemoglobin 14.3 g/dL (11.5-15.3); Lymphocytes # 1.5 10^3/uL (0.8-4.8); Lymphocytes % 23.1 %; Mean Corpuscular HGB Conc 28.9 g/dL (30.0-36.0); Mean Corpuscular Hemoglobin 25.8 pg (28.0-34.0); Mean Corpuscular Volume 89.4 fl (81-99); Mean Platelet Volume 9.4 fL (7.4-10.4); Monocytes # 0.4 10^3/uL (0.2-0.9); Monocytes % 6.5 %; Neutrophils # 4.46 10^3/uL (1.8-7.7); Neutrophils % 67.9 %; Nucleated Red Blood Cells % 0 %; Platelet Count 279 10^3/cmm (130-400); Red Blood Count 5.54 10^6/uL (4.1-5.3); Red Cell Distribution Width 14.3 % (12.1-15.1); White Blood Count 6.6 10^3/uL (4.0-10.0)
[2023-03-15 08:55] LABS: Add Urine Microscopic? NO; Charge for UA Resulting for Rev
[2023-03-15 09:13] LABS: Alanine Aminotransferase 21 U/L (0-33); Albumin Level 4.2 g/dL (3.5-5.2); Alkaline Phosphatase 115 U/L (35-105); Blood Urea Nitrogen 17 mg/dL (6-20); Calcium 9.3 mg/dL (8.5-10.5); Carbon Dioxide 24 mmol/L (22-29); Chloride 101 mmol/L (98-107); Glomerular Filtration Rate 74.5 mL/min (90-130); Glucose 84 mg/dL (65-115); Lipase 33 U/L (13-60); Osmolality Calculated 287 mOsm/kg (285-295); Sodium 138 mmol/L (136-145); Total Bilirubin 0.6 mg/dL (0.15-1.2); Total Protein 7.2 g/dL (6.6-8.7)
[2023-03-15 09:16] LABS: Bilirubin Urine Neg (Negative); Blood Urine Neg (Negative); Glucose Urine UA Norm (Normal); Ketones Urine Negative (Negative); Leukocyte Esterase Urine Negative (Negative); Nitrate Urine Negative (Negative); Protein Urine Neg (Negative); Specific Gravity, Urine 1.015 (1.005-1.030); Urine Appearance Clear (CLEAR); Urine Color Yellow (Yellow); Urobilinogen Urine Norm (Negative); pH Urine 6.5 (5-7)
[2023-03-15 09:17] LABS: Anion Gap 17.5 (5-19); Aspartate Amino Transferase 16 U/L (0-32); Potassium 4.5 mmol/L (3.5-5.1)
[2023-03-15 09:18] LABS: HCG, Serum Qual Negative (Negative)
[2023-03-15] MEDS: metoclopramide 5 mg/mL SDV 2 mL 10 MG IVP (10:09)
== END 2023-03-15 10:53 | disposition home or self-care (01) ==
PROVIDERS: Emergency Provider Physician Assistant; PCP Family Medicine
DX: K80.20 Calculus of gallbladder without cholecystitis without obstruction (principal)
CPT/HCPCS: 36415; 76705; 80053; 81003; 83690; 84703; 85025; 96361; 96374; 96375; 99284; J1170; J2405; J2765; J7030

== ENCOUNTER → 2023-03-23 15:17 | Outpatient (BNVA) | payer MEDICARE, MEDICAID, SELFPAY | PROVIDERS: PCP Family Medicine; Visit Provider Emergency Medicine | DX: M25.512 Pain in left shoulder (principal); X58.XXXA Exposure to other specified factors, initial encounter | CPT/HCPCS: 73030 ==

== ENCOUNTER 2023-03-28 10:06 | Day surgery (SDC) | payer MEDICARE, MEDICAID, SELFPAY ==
[2023-03-27 09:52] VITALS: BMI 47.0
[2023-03-28] VITALS (13 sets, daily range): BP systolic 118–194; BP diastolic 66–125; PULSE 54–94; RESP 14–20; TEMP 36.1; O2SAT 93–100
--- NOTE | 2023-03-28 10:21 | PM.HP ---
Providers/Chief Complaint Primary Care Provider: Lilian Carrion DO Chief Complaint: K82.9 History of Present Illness Libia Hayden is a 57 year old female Medications/Allergies Home Medications Medication Instructions Recorded Confirmed Last Taken Type loratadine 10 mg tablet (Claritin) 10 mg PO DAILY 02/16/22 03/27/23 03/28/23 06:00 History ondansetron 4 mg disintegrating 4 mg PO Q6H PRN nausea and 01/25/23 03/27/23 03/28/23 06:00 Rx tablet vomiting #14 tabs tramadol 50 mg tablet 50 mg PO Q6H PRN pain #20 tabs 01/25/23 03/27/23 Unknown Rx montelukast 10 mg tablet 10 mg PO DAILY #30 tabs 02/08/23 03/27/23 03/28/23 06:00 Rx (Singulair) ropinirole 0.5 mg tablet 0.5 mg PO QID #120 tabs 02/08/23 03/27/23 03/28/23 06:00 Rx albuterol sulfate 90 mcg/actuation 2 inh inhalation Q6H PRN shortness 03/08/23 03/27/23 03/28/23 06:00 Rx breath activated powder inhaler of breath or wheezing #1 ea pantoprazole 40 mg tablet,delayed 40 mg PO QAM #14 tabs 03/19/23 03/27/23 03/28/23 06:00 Rx release (Protonix) fluticasone furoate 100 1 inh inhalation DAILY 03/27/23 03/27/23 03/28/23 06:00 History mcg-vilanterol 25 mcg/dose inhalation powder (Breo Ellipta) Allergies Allergy/AdvReac Type Severity Reaction Status Date / Time codeine Allergy nausea Verified 03/27/23 09:42 Corticosteroids Allergy rash Verified 03/27/23 09:42 (Glucocorticoids) gabapentin Allergy retain Verified 03/27/23 09:42 fluid latex Allergy rash Verified 03/27/23 09:42 meloxicam [From Mobic] Allergy Unknown Verified 03/27/23 09:42 oxycodone Allergy rash Verified 03/27/23 09:42 PFSH Acute PFSH: Medical History Edema Extensor tendinitis of foot Otitis media Restless legs syndrome Seasonal allergies Surgical History History of appendectomy History of section History of elbow surgery Both History of partial thyroidectomy History of thumb surgery Bilateral Hx of colonoscopy with polypectomy 3 yrs ago Hx of meniscectomy of right knee Family History Other Anesthesia complication CAD (coronary artery disease) Hyperlipidemia Hypertension Lung disease Stroke Denies family history of Diabetes Clotting disorder Dementia Psychiatric illness Chronic kidney disease (CKD) Suicide Bleeding disorder Family history of premature coronary artery disease Cancer Social History Alcohol intake: never Substance/Drug Use: never Adopted: No Lives independently: Yes Household members: spouse Marital status: Vitals/I&O/Wt Weight last 48 hrs Weight 249 lb A&P Assessment and plan (1) Symptomatic cholelithiasis: Plan Laparoscopic cholecystectomy Attestations Medical Necessity Statement*: Home Coding Level of Care Code Acute Code for g Fwd Diagnoses Symptomatic cholelithiasis K80.20
[2023-03-28] MEDS: sodium chloride 0.9% 1,000 ML 30 ML IV (10:45)
[2023-03-28] MEDS: midazolam 1 mg/mL INJ 2 mL 2 MG IVP (10:52)
--- NOTE | 2023-03-28 10:55 | PC.NURSE ---
Pt anxious, Versed 2mg IVP given. Pt on continuous pulse oximeter monitor. Will continue to monitor.
[2023-03-28] MEDS: ceFAZolin 2,000 MG in sodium chloride 0.9% (plus) 50 ML 100 MG IV (11:18)
--- NOTE | 2023-03-28 11:22 | ANES.PREANE2 ---
Pre-Anesthetic Assessment Height/Weight: Height 1.55 m Weight 112.945 kg Temp Pulse Resp BP Pulse Ox O2 Del Method 97 F L 69 18 174/98 97 Room Air 03/28/23 10:22 03/28/23 10:54 03/28/23 10:22 03/28/23 10:22 03/28/23 10:54 03/28/23 10:54 Operation Date: 03/28/23 12:10 Proposed Procedures p 54313 LAP BURKE K82.9(Not Applicable) - Ariel Nugent DO Familial anesthetic complications: none Was Beta Colin taken within 24 hours: N/A Was Clonidine taken within 24 hours: N/A Last intake: Intake Last Liquid Date 03/27/23 Last Liquid Time 23:30 Last Solid Date 03/27/23 Last Solid Time 23:30 Social No alcohol and No tobacco Exam alert, oriented x 3, clear to auscultation bilaterally and regular rate & rhythm Airway Submandibular: within normal limits Cervical ROM: within normal limits Mallampati: Class II Dentition: chipped Pulmonary Asthma GI Gastroesophageal Reflux Disease Metabolic Morbid Obesity Musc/[facility] Lower Back Pain and Osteoarthritis/DJD Anesthetic Plan ASA status: 2 Anesthesia: General Medications/Allergies Home Medications Medication Instructions Recorded Confirmed Last Taken Type loratadine 10 mg tablet (Claritin) 10 mg PO DAILY 02/16/22 03/27/23 03/28/23 06:00 History ondansetron 4 mg disintegrating 4 mg PO Q6H PRN nausea and 01/25/23 03/27/23 03/28/23 06:00 Rx tablet vomiting #14 tabs tramadol 50 mg tablet 50 mg PO Q6H PRN pain #20 tabs 01/25/23 03/27/23 Unknown Rx montelukast 10 mg tablet 10 mg PO DAILY #30 tabs 02/08/23 03/27/23 03/28/23 06:00 Rx (Singulair) ropinirole 0.5 mg tablet 0.5 mg PO QID #120 tabs 02/08/23 03/27/23 03/28/23 06:00 Rx albuterol sulfate 90 mcg/actuation 2 inh inhalation Q6H PRN shortness 03/08/23 03/27/23 03/28/23 06:00 Rx breath activated powder inhaler of breath or wheezing #1 ea pantoprazole 40 mg tablet,delayed 40 mg PO QAM #14 tabs 03/19/23 03/27/23 03/28/23 06:00 Rx release (Protonix) fluticasone furoate 100 1 inh inhalation DAILY 03/27/23 03/27/23 03/28/23 06:00 History mcg-vilanterol 25 mcg/dose inhalation powder (Breo Ellipta) Allergies Allergy/AdvReac Type Severity Reaction Status Date / Time codeine Allergy nausea Verified 03/27/23 09:42 Corticosteroids Allergy rash Verified 03/27/23 09:42 (Glucocorticoids) gabapentin Allergy retain Verified 03/27/23 09:42 fluid latex Allergy rash Verified 03/27/23 09:42 meloxicam [From Mob] Allergy Unknown Verified 03/27/23 09:42 oxycodone Allergy rash Verified 03/27/23 09:42 Current Medications Generic Name Dose Route Start Last Admin Trade Name Freq PRN Reason Stop Dose Admin Sodium Chloride 1,000 mls @ 30 mls/hr 03/28/23 10:15 03/28/23 10:45 Sodium Chloride 0.9% IV 03/29/23 10:14 30 mls/hr .Q24H BONNIE Administration Midazolam HCl 2 mg 03/28/23 10:15 03/28/23 10:52 Midazolam 1 Mg/Ml Inj 2 Ml IVP 2 mg ONCE PRN Administration Preop Anxiety PFSH Anesthesia Medical History Edema Extensor tendinitis of foot Otitis media Restless legs syndrome Seasonal allergies Surgical History History of appendectomy History of section History of elbow surgery Both History of partial thyroidectomy History of thumb surgery Bilateral Hx of colonoscopy with polypectomy 3 yrs ago Hx of meniscectomy of right knee Family History Other Anesthesia complication CAD (coronary artery disease) Hyperlipidemia Hypertension Lung disease Stroke Denies family history of Diabetes Clotting disorder Dementia Psychiatric illness Chronic kidney disease (CKD) Suicide Bleeding disorder Family history of premature coronary artery disease Cancer Social History Alcohol intake: never Substance/Drug Use: never Adopted: No Lives independently: Yes Household members: spouse Marital status: Data Anesthesia Cardiac Studies: No Data to Display
[2023-03-28] MEDS: lidocaine-epi 2% 20 mL INJ INJECTION (11:46)
--- NOTE | 2023-03-28 12:06 | PM.OP ---
Operative Report Date of procedure: March 28, 2023 Pre-op diagnosis: Symptomatic cholelithiasis Post-op diagnosis: same Procedure done: Laparoscopic cholecystectomy Implants: None Specimens removed/disposition: Gallbladder Surgeon: Dr. Ariel Nugent DO Anesthesia: General Estimated blood loss (mL): 5 Complications: None apparent Brief History: This is a very pleasant 57-year-old female who was diagnosed with symptomatic cholelithiasis. Laparoscopic cholecystectomy is indicated. The risk and benefits were explained and documented. Procedure: Patient was wheeled into the operative room and placed on the OR table in a supine position. Abdomen was inspected prepped and draped in usual sterile fashion. Time-out was performed and all present were in agreement. A 15 blade scalp was used to make a stab incision in the left upper quadrant and intra-abdominal insufflation was achieved using a Veress needle. After localizing the tissue incisions were made and a 5 millimeter trocar was placed into the umbilicus as well as 2 in the right upper quadrant. A 12 millimeter trocar was placed in the epigastrium. Gallbladder was grasped and elevated. The triangle of Calot was carefully dissected using blunt dissection and electrocautery until the triangle of Calot clearly identified. The cystic duct was clipped proximally and double clipped distally. The duct was then ligated proximally. The cystic artery was doubly clipped and ligated. The gallbladder was then removed from the liver bed using electrocautery. The gallbladder was removed from the abdomen using an Endo-Catch bag through the epigastric incision. The liver bed was inspected and no bleeding was seen. The abdomen was irrigated and suctioned. The epigastric incision was closed at the fascia with a Davis-Gerard and 0 Vicryl in a [id number] fashion. All ports removed. Skin was washed and dried. Incisions were closed with 4-0 Monocryl in a subcuticular interrupted fashion. Skin glue was applied. Patient tolerated the procedure well.
[2023-03-28] MEDS: metoprolol tartrate 1 mg/1 mL SDV 5 mL 10 MG ×2 (12:38)
[2023-03-28] MEDS: hyDRALAzine 20 mg/mL INJ 1 mL (12:38)
[2023-03-28] MEDS: fentaNYL 50 mcg/mL INJ 2mL IVP (12:39)
[2023-03-28] MEDS: oxyCODONE-APAP 10-325 mg Tablet 1 TAB PO (13:18)
--- NOTE | 2023-03-28 13:19 | PC.NURSE ---
pt states she takes percocet at home without any difficulties.
--- NOTE | 2023-03-28 15:31 | ANE.PACU2 ---
Inpatient post-anesthesia follow up: Airway intact: Yes Vital signs: Temperature 97 F Pulse Rate 60 Respiratory Rate 18 Blood Pressure 118/66 Pulse Oximetry 94 Oxygen Delivery Me thod Room Air Oxygen Flow Rate 6 Fraction of Inspir ed Oxygen Hydration adequate: Yes Nausea and vomiting: No Pain level: 3 Mental status: Baseline
== END 2023-03-28 13:52 | disposition home or self-care (01) ==
PROVIDERS: PCP Family Medicine; Visit Provider Surgery
PROC: 0FT44ZZ Resection of Gallbladder, Percutaneous Endoscopic Approach (ICD-10-PCS; CPT 47562; principal; 2023-03-28 12:00)
DX: K80.10 Calculus of gallbladder with chronic cholecystitis without obstruction (principal); K21.9 Gastro-esophageal reflux disease without esophagitis
CPT/HCPCS: 47562; 88304; J0360; J0690; J1170; J1200; J1885; J2250; J2405; J2704; J2710; J3010; J3490; J7030

== ENCOUNTER → 2023-04-16 08:06 | Outpatient (BNVA) | payer MEDICARE, MEDICAID, SELFPAY | PROVIDERS: PCP Family Medicine; Visit Provider Surgery | DX: Z90.49 Acquired absence of other specified parts of digestive tract (principal); Z98.890 Other specified postprocedural states | CPT/HCPCS: 99024 ==

== ENCOUNTER → 2023-04-23 08:23 | Outpatient (BNVA) | payer MEDICARE, MEDICAID, SELFPAY | PROVIDERS: PCP Family Medicine | DX: G25.81 Restless legs syndrome (principal); Z13.6 Encounter for screening for cardiovascular disorders; D50.9 Iron deficiency anemia, unspecified | CPT/HCPCS: 82728; 83550; 85025 ==

== ENCOUNTER 2023-05-16 07:04 | Outpatient (CLI) | payer MEDICARE, MEDICAID, SELFPAY | END 2023-05-16 07:05 | disposition home or self-care (01) | PROVIDERS: PCP Family Medicine; Visit Provider Family Medicine | DX: R19.7 Diarrhea, unspecified (principal); M75.40 Impingement syndrome of unspecified shoulder | CPT/HCPCS: 87045; 87324; 87427; 87449 ==

== ENCOUNTER 2023-06-10 07:48 | Outpatient (CLI) | payer MEDICARE, MEDICAID, SELFPAY ==
--- NOTE | 2023-06-10 07:56 | MM_ITS ---
WS: [id number] DIAGNOSTIC RIGHT DIGITAL TOMOSYNTHESIS MAMMOGRAPHY WITH CAD. RIGHT breast ultrasound, limited. HISTORY: 6MFU POST BX COMPARISON: 10/26/2022, breast ultrasound 11/22/2022 and 12/06/2022 Technique: CC, MLO and ML views. Breast composition: Scattered asymmetries are reidentified in the anterior breast. There is a biopsy clip at the site of the prior biopsy. No increasing mass size. No calcifications. RIGHT breast ultrasound, limited. No mass or shadowing or abnormality is noted on today's ultrasound. Biopsy clip is noted at 8:00, 3 c m from nipple. No increased in the soft tissue abnormality. There is a persistent hypoechoic mass adj acent to the biopsy clip with a maximum diameter of 3.8 mm. IMPRESSION: MM/[place] [id number] BI-RADS: 3-Probably Benign FOLLOW UP: 6 Month Follow-up Patient to return in October 2023 for annual mammogram. Recommend additional u ltrasound biopsy of the RIGHT breast at that time to confirm long-term stabilit y of the persistent mass at the biopsy site. This was biopsy negative but there are some features that remain concerning although this mass is not increasing in size.
--- NOTE | 2023-06-10 08:30 | US_ITS ---
WS: [id number] DIAGNOSTIC RIGHT DIGITAL TOMOSYNTHESIS MAMMOGRAPHY WITH CAD. RIGHT breast ultrasound, limited. HISTORY: 6MFU POST BX COMPARISON: 10/26/2022, breast ultrasound 11/22/2022 and 12/06/2022 Technique: CC, MLO and ML views. Breast composition: Scattered asymmetries are reidentified in the anterior breast. There is a biopsy clip at the site of the prior biopsy. No increasing mass size. No calcifications. RIGHT breast ultrasound, limited. No mass or shadowing or abnormality is noted on today's ultrasound. Biopsy clip is noted at 8:00, 3 c m from nipple. No increased in the soft tissue abnormality. There is a persistent hypoechoic mass adj acent to the biopsy clip with a maximum diameter of 3.8 mm. IMPRESSION: US/US breast RT limited* [id number] BI-RADS: 3-Probably Benign FOLLOW UP: 6 Month Follow-up Patient to return in October 2023 for annual mammogram. Recommend additional u ltrasound biopsy of the RIGHT breast at that time to confirm long-term stabilit y of the persistent mass at the biopsy site. This was biopsy negative but there are some features that remain concerning although this mass is not increasing in size.
== END 2023-06-10 07:49 | disposition home or self-care (01) ==
LOC: RAD 07:49
PROVIDERS: PCP Family Medicine; Visit Provider Family Medicine
DX: R92.8 Other abnormal and inconclusive findings on diagnostic imaging of breast (principal)
CPT/HCPCS: 76642; 77061; G0279

== ENCOUNTER 2023-06-16 12:21 | Outpatient (CLI) | payer MEDICARE, MEDICAID, SELFPAY ==
[2023-06-16 13:08] LABS: Basophils % 0.4 %; Eosinophils # 0.1 10^3/uL (0.0-0.8); Eosinophils % 1.4 %; Hematocrit 42.8 % (36-47); Lymphocytes # 1.8 10^3/uL (0.8-4.8); Mean Corpuscular HGB Conc 29.4 g/dL (30-55); Mean Corpuscular Hemoglobin 25.7 pg (27-33); Mean Corpuscular Volume 87.3 fl (85-98); Mean Platelet Volume 9.5 fL (7.4-10.4); Monocytes # 0.8 10^3/uL (0.2-0.9); Monocytes % 10.6 %; Neutrophils # 4.36 10^3/uL (1.8-7.7); Neutrophils % 61.9 %; Nucleated Red Blood Cells % 0 %; Platelet Count 275 10^3/cmm (157-399); Red Cell Distribution Width 13.6 % (12.1-15.1); White Blood Count 7.05 10^3/uL (3.29-11.43)
[2023-06-16 13:30] LABS: Chloride 104 mmol/L (98-107); Sodium 138 mmol/L (136-145)
[2023-06-16 13:57] LABS: Blood Urea Nitrogen 15 mg/dL (6-20); Calcium 8.9 mg/dL (8.5-10.5); Carbon Dioxide 23 mmol/L (22-29); Glomerular Filtration Rate 74.2 mL/min (90-130); Glucose 72 mg/dL (65-115); NT Pro B Type Natriuretic Pept 196 pg/mL (0-125); Osmolality Calculated 285 mOsm/kg (285-295)
== END 2023-06-16 12:22 | disposition home or self-care (01) ==
PROVIDERS: PCP Family Medicine; Visit Provider Emergency Medicine
DX: R06.02 Shortness of breath (principal)
CPT/HCPCS: 36415; 80048; 83880; 85025

== ENCOUNTER 2023-06-17 07:35 | Outpatient (CLI) | payer MEDICARE, MEDICAID, SELFPAY ==
[2023-06-17 08:14] LABS: Basophils % 0.4 %; Eosinophils # 0.1 10^3/uL (0.0-0.8); Eosinophils % 1.4 %; Hematocrit 47.3 % (36-47); Lymphocytes # 1.7 10^3/uL (0.8-4.8); Lymphocytes % 23.8 %; Mean Corpuscular HGB Conc 29.8 g/dL (30-55); Mean Corpuscular Hemoglobin 26.5 pg (27-33); Mean Corpuscular Volume 88.7 fl (85-98); Mean Platelet Volume 9.3 fL (7.4-10.4); Monocytes # 0.7 10^3/uL (0.2-0.9); Monocytes % 9.1 %; Neutrophils # 4.67 10^3/uL (1.8-7.7); Neutrophils % 64.6 %; Nucleated Red Blood Cells % 0 %; Platelet Count 261 10^3/cmm (157-399); Red Blood Count 5.33 10^6/uL (3.85-5.65); Red Cell Distribution Width 13.8 % (12.1-15.1); White Blood Count 7.23 10^3/uL (3.29-11.43)
[2023-06-17 08:40] LABS: Blood Urea Nitrogen 16 mg/dL (6-20); Carbon Dioxide 28 mmol/L (22-29); Glomerular Filtration Rate 74.2 mL/min (90-130); Glucose 108 mg/dL (65-115); NT Pro B Type Natriuretic Pept 97 pg/mL (0-125)
[2023-06-17 09:06] LABS: Anion Gap 11.9 (5-19); Chloride 101 mmol/L (98-107); Osmolality Calculated 286 mOsm/kg (285-295); Potassium 3.9 mmol/L (3.5-5.1); Sodium 137 mmol/L (136-145)
== END 2023-06-17 07:36 | disposition home or self-care (01) ==
LOC: LAB 07:37
PROVIDERS: PCP Family Medicine; Visit Provider Emergency Medicine
DX: Z01.89 Encounter for other specified special examinations (principal)
CPT/HCPCS: 80048; 83880; 85025

== ENCOUNTER 2023-07-15 07:21 | Outpatient (CLI) | payer MEDICARE, SELFPAY ==
--- NOTE | 2023-07-15 07:30 | USCV_ITS ---
Libia Hayden Age: 58 Gender: F : 1965 Exam Date: 07/15/2023 07:49 Ordering Phys: Giovanni Ames MD Technologist: Exam Location: [facility] – [place] Indication: edema, CA BP: 120 / 70 HR: 71 Rhythm: Sinus Technical Quality: Adequate MEASUREMENTS (Male / Female) Normal Values 2D ECHO LV Diastolic Diameter PLAX 3.4 cm 4.2 - 5.9 / 3.9 - 5.3 cm LV Systolic Diameter PLAX 2.6 cm IVS Diastolic Thickness 1.3 cm 0.6 - 1.0 / 0.6 - 0.9 cm IVS Systolic Thickness 1.9 cm LVPW Diastolic Thickness 1.3 cm 0.6 - 1.0 / 0.6 - 0.9 cm LVPW Systolic Thickness 1.7 cm LVOT Diameter 2.0 cm LV Ejection Fraction 2D Teich 32.5 % LV Ejection Fraction MOD 2C 74.8 % LV Ejection Fraction 2C AL 75.9 % LA Diameter 4.4 cm IVC Diameter 3.0 cm M-MODE Aortic Annulus Diameter 3.3 cm LA Ao Ratio MM 1.2 MV E Point Septal Separation 1.0 cm DOPPLER AV Peak Velocity 177.0 cm/s LVOT Peak Velocity 128.0 cm/s AV Area Cont Eq vti 2.0 cm squared AV Area Cont Eq pk 2.3 cm squared MV Area PHT 3.4 cm squared Mitral E to A Ratio 1.4 MV E' Velocity 76.5 cm/s Mitral E to MV E' Ratio 13.3 Mitral E to LV E' Lateral Ratio 11.4 Mitral E to LV E' Septal Ratio 15.8 TR Peak Velocity 171.3 cm/s TR Peak Gradient 11.7 mmHg TV Peak E Velocity 104.0 cm/s Right Atrial Pressure 3.0 mmHg Pulmonary Artery Systolic Pressu 14.7 mmHg RV Acceleration Time 0.1 s FINDINGS Left Ventricle Left ventricle is normal in size. LV systolic function is normal with EF of 60 to 65%. No regional wall motion abnormalities are seen. Right Ventricle Normal size and function Right Atrium Normal-sized Left Atrium Normal-sized Mitral Valve Structurally normal mitral valve. Mild mitral regurgitation Aortic Valve Structurally normal aortic valve. No significant stenosis or regurgitation. Tricuspid Valve Mild tricuspid regurgitation. Insufficient TR jet to calculate RVSP. Pulmonic Valve Not well-visualized Pericardium Normal Aorta Normal in size IVC Dilated CONCLUSIONS LV systolic function is normal with EF of 60 to 65%. Mild mitral regurgitation Mild tricuspid regurgitation No comparison studies are available. Alexis Chang MD (Electronically Signed) Final Date: 15 July 2023 16:58 S
== END 2023-07-15 07:22 | disposition home or self-care (01) ==
LOC: RAD 07:21
PROVIDERS: PCP Family Medicine; Visit Provider Family Medicine
DX: R60.1 Generalized edema (principal); I08.1 Rheumatic disorders of both mitral and tricuspid valves
CPT/HCPCS: 93306

== ENCOUNTER → 2023-07-30 12:12 | Outpatient (BNVA) | payer MEDICARE, SELFPAY | PROVIDERS: PCP Family Medicine; Visit Provider Family Medicine | DX: R60.1 Generalized edema (principal) | CPT/HCPCS: 80053 ==

== ENCOUNTER → 2023-09-10 11:22 | Outpatient (BNVA) | payer MEDICARE, SELFPAY | PROVIDERS: PCP Family Medicine; Visit Provider Family Medicine | DX: R60.1 Generalized edema (principal) | CPT/HCPCS: 80053 ==

== ENCOUNTER 2023-10-29 08:45 | Outpatient (CLI) | payer MEDICARE, SELFPAY ==
--- NOTE | 2023-10-29 08:52 | US_ITS ---
WS: [id number] ADDITIONAL VIEWS RIGHT MAMMOGRAM WITH DIGITAL BREAST TOMOSYNTHESIS. RIGHT BREAST ULTRASOUND HISTORY: ABNORMAL MAMMO FOLLOW UP COMPARISON: 06/10/2023, 06/25/2023 and 12/06/2022 RIGHT MAMMOGRAM: Spot compression views and true ML with digital breast tomosynthesis and SM. Reidentified is a small nodule measuring approximately 5 mm with biopsy clip. No increase in size of this nodule. No adverse change. RIGHT BREAST ULTRASOUND 2-D and color Doppler imaging submitted. The nodule in the RIGHT breast at 8:00 is reidentified with the biopsy clip. There is been no increas e in size of the soft tissue nodule now measuring 4 x 3 x 5 mm. IMPRESSION: US/US breast RT limited* [id number] BI-RADS: 2-Benign FOLLOW UP: 1 Year Follow-up Return to annual screening mammography. There has been no increase in size of t he previously biopsied mass in the RIGHT breast at 8:00.
--- NOTE | 2023-10-29 09:00 | MM_ITS ---
WS: [id number] ADDITIONAL VIEWS RIGHT MAMMOGRAM WITH DIGITAL BREAST TOMOSYNTHESIS. RIGHT BREAST ULTRASOUND HISTORY: ABNORMAL MAMMO FOLLOW UP COMPARISON: 06/10/2023, 06/25/2023 and 12/06/2022 RIGHT MAMMOGRAM: Spot compression views and true ML with digital breast tomosynthesis and SM. Reidentified is a small nodule measuring approximately 5 mm with biopsy clip. No increase in size of this nodule. No adverse change. RIGHT BREAST ULTRASOUND 2-D and color Doppler imaging submitted. The nodule in the RIGHT breast at 8:00 is reidentified with the biopsy clip. There is been no increas e in size of the soft tissue nodule now measuring 4 x 3 x 5 mm. IMPRESSION: MM/[place] [id number] BI-RADS: 2-Benign FOLLOW UP: 1 Year Follow-up Return to annual screening mammography. There has been no increase in size of t he previously biopsied mass in the RIGHT breast at 8:00.
== END 2023-10-29 08:46 | disposition home or self-care (01) ==
LOC: RAD 08:45
PROVIDERS: PCP Family Medicine; Visit Provider Family Medicine
DX: R92.8 Other abnormal and inconclusive findings on diagnostic imaging of breast (principal)
CPT/HCPCS: 76642; 77062; G0279

== ENCOUNTER 2024-05-26 10:23 | Outpatient (CLI) | payer MEDICARE, SELFPAY ==
--- NOTE | 2024-05-26 10:30 | XRR_ITS ---
PROCEDURE INFORMATION: Exam: XR Left Knee Exam date and time: 05/26/2024 10:41 AM Age: 59 years old Clinical indication: Left; Prior surgery; Surgery date: 1-6 months; Patient HX: Pain in posterior and anterior knee after meniscus surgery 3 months prior; Additional info: Knee pain TECHNIQUE: Imaging protocol: Radiologic exam of the left knee. Views: 3 views. COMPARISON: CR XR knee LT 3V* [id number] 11/05/2022 11:41 AM FINDINGS: Bones/joints: No acute fracture or dislocation. Mild degenerative joint space narrowing of the medial compartment, with mild squaring of the femoral condyle and subchondral sclerosis and marginal osteophytosis, not significantly progressed since 2022. Soft tissues: Soft tissues are unremarkable as visualized. XR/XR knee LT 3V* [id number] IMPRESSION: 1. No acute fracture or dislocation. 2. Mild degenerative changes as above.
== END 2024-05-26 10:24 | disposition home or self-care (01) ==
PROVIDERS: PCP Family Medicine; Visit Provider Family Medicine
DX: M25.562 Pain in left knee (principal); M25.762 Osteophyte, left knee
CPT/HCPCS: 73562

== ENCOUNTER 2024-06-12 07:44 | Outpatient (CLI) | payer MEDICARE, SELFPAY ==
--- NOTE | 2024-06-12 08:00 | MR_ITS ---
WS: [id number] MRI LEFT KNEE NONCONTRAST TECHNIQUE: Axial PD, coronal PD fat sat, coronal PD, sagittal PD, and sagittal PD fat-sat images obta ined. CLINICAL INFORMATION: knee pain COMPARISON: None. FINDINGS: Distal quadriceps and patella tendons are intact. Moderate tricompartmental arthritis worse involving the medial joint compartment and patellofemoral articulation. Somewhat diminutive ACL suspicious for partial tear with superimposed mucoid degeneration. Normal PCL . Normal lateral meniscus. Prior postoperative changes partial meniscectomy medial meniscus thinning. Mild peripheral extrusion of the medial meniscus. Grade 2-3 chondromalacia medial and lateral joint compartments. No subchondral edema. 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 Medial and lateral patellar retinacula appear intact. Small suprapatellar effusion. Medial and lateral collateral ligaments appear intact. Normal popliteus. Small lobulated popliteal cy st measuring 1.9 x 4.5 cm AP by craniocaudal. MR/MR knee LT wo con* [id number] IMPRESSION: 1. Somewhat diminutive ACL suspicious for partial tear with superimposed mucoi d degeneration. Normal PCL. Recommend correlation for ACL injury. 2. Prior postoperative changes of medial meniscectomy with thinning of the med ial meniscus and slight peripheral extrusion. No acute appearing lateral menisc al tear. 3. Grade 2-3 chondromalacia medial and lateral joint compartments. 4. 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 5. Small suprapatellar effusion. 6. Small lobulated popliteal cyst described above. 7. Medial and lateral collateral ligaments appear intact. Outbridge grading: grade III: partial-thickness cartilage loss with focal ulcer ation
== END 2024-06-12 07:45 | disposition home or self-care (01) ==
LOC: RAD 07:46
PROVIDERS: PCP Family Medicine; Visit Provider Family Medicine
DX: M17.12 Unilateral primary osteoarthritis, left knee (principal); Z98.890 Other specified postprocedural states; M22.42 Chondromalacia patellae, left knee; M71.22 Synovial cyst of popliteal space [Baker], left knee
CPT/HCPCS: 73721

== ENCOUNTER 2024-06-30 08:29 | Outpatient (RCR) | payer MEDICARE, SELFPAY | END 2024-07-09 23:59 | disposition home or self-care (01) | LOC: SPT 08:29 | PROVIDERS: PCP Family Medicine; Visit Provider Family Medicine | DX: S83.511D Sprain of anterior cruciate ligament of right knee, subsequent encounter (principal); X58.XXXD Exposure to other specified factors, subsequent encounter | CPT/HCPCS: 97161 ==

== ENCOUNTER 2024-07-10 06:00 | Outpatient (RCR) | payer MEDICARE, SELFPAY | END 2024-08-08 23:59 | disposition home or self-care (01) | LOC: SPT 06:00 | PROVIDERS: PCP Family Medicine; Visit Provider Family Medicine | DX: S83.511D Sprain of anterior cruciate ligament of right knee, subsequent encounter (principal); X58.XXXD Exposure to other specified factors, subsequent encounter | CPT/HCPCS: 97110 ==

== ENCOUNTER 2024-08-09 06:00 | Outpatient (RCR) | payer MEDICARE, SELFPAY | END 2024-09-08 23:59 | disposition home or self-care (01) | LOC: SPT 06:00 | PROVIDERS: PCP Family Medicine; Visit Provider Family Medicine | DX: S83.511D Sprain of anterior cruciate ligament of right knee, subsequent encounter (principal); X58.XXXD Exposure to other specified factors, subsequent encounter | CPT/HCPCS: 97110 ==

== ENCOUNTER 2024-09-08 20:21 | Emergency (ER) | payer MEDICARE, SELFPAY ==
[2024-09-08 20:31] VITALS: BP 165/107; PULSE 72; RESP 16; TEMP 36.5; O2SAT 96
--- NOTE | 2024-09-08 20:40 | USR_ITS ---
PROCEDURE INFORMATION: Exam: US Duplex Left Lower Extremity Veins, Limited Exam date and time: 09/08/2024 8:50 PM Age: 59 years old Clinical indication: Edema, localized; Lower extremity, left; Additional info: Swelling and calf pain TECHNIQUE: Imaging protocol: Real-time duplex ultrasound of the left extremity with 2-D crocker scale, color Doppler flow and spectral waveform analysis including responses to compression and other maneuvers (when performed) with image documentation. Limited exam focused on the left lower extremity veins. COMPARISON: MR knee LT wo con* [id number] 06/12/2024 7:59 AM FINDINGS: Left deep veins: Partially occlusive thrombus within the left common femoral and superficial femoral veins which appears chronic. The deep femoral, popliteal, and calf veins are patent. Superficial veins: Greater saphenous vein at the saphenofemoral junction is patent without thrombus. Soft tissues: Unremarkable. US/[place] [id number] IMPRESSION: Partially occlusive thrombus in the left common femoral and superficial femoral veins which appears chronic.
--- NOTE | 2024-09-08 20:53 | W.ED.EXTPRO ---
Documented by User: Chay Hartmann 09/08/24 23:17 HPI - Extremity Problem General: Chief complaint: Extremity Injury, Lower Stated complaint: L. leg pain Time Seen by Provider: 09/08/24 20:32 History of Present Illness: 59-year-old female presents to the emergency department chief complaint of progressive left-sided leg swelling with pain patient denies any prior history of blood clots or any prior trauma or injury she reports she is ready for chronic Lasix for edema in her legs patient denies any known history of right kidney problems or vascular problems or heart problems. She denies having any current chest pain palpitations or shortness of breath or any other associated symptoms. Patient does report there is a remote history of blood clots in the family due to unknown reasons patient denies any recent surgery any recent trauma or injury to located left leg and reports no other associated symptoms. Associated symptoms: Deny chest pain, fever(s) or rash Related Data Home Medications Medication Instructions Recorded Confirmed loratadine 10 mg tablet (Claritin) 10 mg PO DAILY 02/16/22 05/08/24 Previous Rx's Medication Instructions Recorded potassium chloride 20 mEq 20 meq PO DAILY #90 tabs 10/17/23 tablet,extended release torsemide 20 mg tablet 20 mg PO QAM #90 tabs 10/17/23 albuterol sulfate 90 mcg/actuation 2 inh inhalation Q6H PRN shortness 11/11/23 breath activated powder inhaler of breath or wheezing #1 ea fluticasone propionate 50 1 spray intranasal DAILY PRN 11/11/23 mcg/actuation nasal allergy symptoms #16 grams spray,suspension (Flonase Allergy Relief) montelukast 10 mg tablet See Rx Instructions .Route 04/13/24 .COMPLEX #90 tabs pramipexole 1 mg tablet 1 mg PO .qhs #90 tabs 04/13/24 fluticasone 500 mcg-salmeterol 50 1 inh inhalation BID #60 ea 05/27/24 mcg/dose blistr powdr for inhalation (Advair Diskus) omeprazole 20 mg tablet,delayed 20 mg PO DAILY #90 tabs 06/16/24 release colestipol 1 gram tablet 1 g PO BID #180 tabs 06/24/24 apixaban 5 mg (74 tabs) tablets in See Rx Instructions PO .COMPLEX 12/31/24 a dose pack (Eliquis DVT-PE Treat #74 ea 30D Start) Allergies Allergy/AdvReac Type Severity Reaction Status Date / Time codeine Allergy nausea Verified 05/08/24 11:13 Corticosteroids Allergy rash Verified 05/08/24 11:13 (Glucocorticoids) gabapentin Allergy retain Verified 05/08/24 11:13 fluid latex Allergy rash Verified 05/08/24 11:13 meloxicam [From Mobic] Allergy Unknown Verified 05/08/24 11:13 oxycodone Allergy rash Verified 05/08/24 11:13 Review of Systems General: Reports: 10 or more systems reviewed and unremarkable except in HPI and below Const: Denies: fever(s), chills, fatigue or malaise Eyes: Denies: change in vision or blurry vision Card: Denies: chest pain or palpitations Resp: Denies: dyspnea or productive cough GI: Denies: abdominal pain, nausea or vomiting : Denies: flank pain Musc: Reports: extremity pain and extremity swelling Skin/Breast: Denies: rash or pruritus Neuro: Denies: headache(s) Psych: Denies: anxiety or depression Otoniel/Lymph: Denies: easy bleeding All/Imm: Denies: urticaria, throat swelling or facial swelling PFSH ED PFSH: Medical History Otitis media Extensor tendinitis of foot Edema Seasonal allergies Restless legs syndrome Surgical History Hx laparoscopic cholecystectomy Hx of meniscectomy of right knee Hx of colonoscopy with polypectomy 3 yrs ago History of section History of thumb surgery Bilateral History of partial thyroidectomy History of appendectomy History of elbow surgery Both Family History Other Anesthesia complication CAD (coronary artery disease) Hyperlipidemia Hypertension Lung disease Stroke Denies family history of Diabetes Clotting disorder Dementia Psychiatric illness Chronic kidney disease (CKD) Suicide Bleeding disorder Family history of premature coronary artery disease Cancer Social History Smoking and tobacco/nicotine status: never used tobacco/nicotine Quit status (tobacco/nicotine): has quit using Former quit date comment: 2015 Alcohol intake: never Substance/Drug Use: never Adopted: No Lives independently: Yes Household members: spouse Marital status: Current occupational status: disabled Whit/Protestant: Pentecostalism Special whit needs: No Agree to transfusion: Yes Physical Exam Const: COMMON NORMALS: no acute distress, patient oriented x3 and healthy appearing HENMT: COMMON NORMALS: normocephalic and atraumatic HEAD & SCALP: normocephalic and atraumatic Eye: COMMON NORMALS: Equal, round and reactive pupils present and EOMs intact bilaterally PUPIL: Yes Equal, round and reactive pupils present Neck/C-Spine: COMMON NORMALS: full ROM, supple and no JVD Lymph: LYMPHATIC: no lymphadenopathy noted Chest: COMMONS NORMALS: normal inspection of the chest and normal palpation of entire chest wall Resp: COMMON NORMALS: normal respiratory effort, No retractions and clear to auscultation bilaterally EFFORT & INSPECTION: Yes able to speak in complete sentences and Yes symmetric chest movement AUSCULTATION: clear to auscultation bilaterally Cardio: COMMON NORMALS: no JVD, regular rate and regular rhythm RATE: regular rate RHYTHM: regular rhythm GI: COMMON NORMALS: Normal to inspection, nondistended, normoactive bowel sounds present, Soft to palpation and non-tender INSPECTION: Yes normal to inspection PALPATION: Yes Soft to palpation : COMMON NORMALS: Yes no CVA tenderness BLADDER/KIDNEY EXAM: Yes no CVA tenderness Back/Pelvis: COMMON NORMALS: no CVA tenderness Extremity: NARRATIVE EXTREMITY EXAM: Moderate swelling appreciated to the left calf with pitting edema present neurovascular intact distally Neuro: COMMON NORMALS: patient oriented x3, CN's II-XII intact bilaterally, moves all extremities and no focal motor deficits Psych: COMMON NORMALS: mental status grossly normal, Normal thought process present, cooperative and normal affect THOUGHT PROCESS: Normal thought process present Skin: COMMON NORMALS: no rashes or lesions noted GENERAL SKIN EXAM: no rashes or lesions noted Course Vital Signs: Vital signs: Vital Signs Temperature 97.7 F 09/08/24 20:31 Pulse Rate 66 09/08/24 22:11 Respiratory Rate 16 09/08/24 20:31 Blood Pressure 134/60 09/08/24 22:11 Pulse Oximetry 94 09/08/24 22:11 MDM - Extremity (Nontraumatic) Medical Decision Making Due to patient's symptoms and condition ultrasound of the lower extremity will be obtained we will continue to follow. 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 This patient was signed out to my colleague Dr. Wilks at 2300. Lab Data 09/08/24 23:00 09/08/24 23:00 Radiology Impressions Venous Duplex 09/08/24 20:40 IMPRESSION: Partially occlusive thrombus in the left common femoral and superficial femoral veins which appears chronic. Laboratory Results WBC 8.46 10^3/uL (3.29-11.43) 09/08/24 23:00 RBC 4.85 10^6/uL (3.85-5.65) 09/08/24 23:00 Hgb 12.20 g/dL (11.27-16.99) 09/08/24 23:00 Hct 41.1 % (36-47) 09/08/24 23:00 MCV 84.7 fl (85-98) L 09/08/24 23:00 MCH 25.2 pg (27-33) L 09/08/24 23:00 MCHC 29.7 g/dL (30-55) L 09/08/24 23:00 RDW 14.6 % (12.1-15.1) 09/08/24 23:00 Plt Count 275 10^3/cmm (157-399) 09/08/24 23:00 MPV 9.6 fL (7.4-10.4) 09/08/24 23:00 Neut % (Auto) 65.0 % 09/08/24 23:00 Lymph % (Auto) 24.5 % 09/08/24 23:00 Sibley % (Auto) 8.2 % 09/08/24 23:00 Eos % (Auto) 1.4 % 09/08/24 23:00 Baso % (Auto) 0.5 % 09/08/24 23:00 Neut # (Auto) 5.51 10^3/uL (1.8-7.7) 09/08/24 23:00 Lymph # (Auto) 2.1 10^3/uL (0.8-4.8) 09/08/24 23:00 Sibley # (Auto) 0.7 10^3/uL (0.2-0.9) 09/08/24 23:00 Eos # (Auto) 0.1 10^3/uL (0.0-0.8) 09/08/24 23:00 Baso # (Auto) 0.0 10^3/uL (0.0-0.1) 09/08/24 23:00 Nucleated RBC % (auto) 0 % 09/08/24 23:00 Nucleated RBCs # 0.0 /100WBC 09/08/24 23:00 PT 11.80 SECONDS (12.1-14.9) L 09/08/24 23:00 INR 0.85 (0.8-1.2) 09/08/24 23:00 APTT 26.4 SECONDS (23.9-36.7) 09/08/24 23:00 Sodium 143 mmol/L (136-145) 09/08/24 23:00 Potassium 4.5 mmol/L (3.5-5.1) 09/08/24 23:00 Chloride 107 mmol/L (98-107) 09/08/24 23:00 Carbon Dioxide 24 mmol/L (22-29) 09/08/24 23:00 Anion Gap 16.5 (5-19) 09/08/24 23:00 BUN 20 mg/dL (6-20) 09/08/24 23:00 Creatinine 1.0 mg/dL (0.5-0.9) H 09/08/24 23:00 GFR Calculation 57.1 mL/min (90-130) L 09/08/24 23:00 Glucose 150 mg/dL (65-115) H 09/08/24 23:00 Calculated Osmolality 301 mOsm/kg (285-295) H 09/08/24 23:00 Calcium 9.2 mg/dL (8.5-10.5) 09/08/24 23:00 Total Bilirubin 0.2 mg/dL (0.15-1.2) 09/08/24 23:00 AST 20 U/L (0-32) 09/08/24 23:00 ALT 39 U/L (0-33) H 09/08/24 23:00 Alkaline Phosphatase 109 U/L (35-105) H 09/08/24 23:00 Total Protein 6.1 g/dL (6.6-8.7) L 09/08/24 23:00 Albumin 3.8 g/dL (3.5-5.2) 09/08/24 23:00 Globulin 2.3 g/dL (1.3-4.6) 09/08/24 23:00 All radiology interpretation(s) finalized by discharge Discharge Plan Discharge Patient Disposition: Home Clinical Impression: DVT of deep femoral vein Qualifiers: Laterality: left Qualified Code(s): I82.412 - Acute embolism and thrombosis of left femoral vein Condition: Stable Prescriptions: New EliLOANZ DVT-PE Treat 30D Start 5 mg (74 tabs) tablets,dose pack See Rx Instructions .ROUTE .COMPLEX Qty: 74 0RF Rx Instructions: orally per package directions No Action albuterol sulfate 90 mcg/actuation aerosol powdr breath activated 2 inh inhalation Q6H PRN (Reason: shortness of breath or wheezing) Qty: 1 3RF fluticasone propionate [Flonase Allergy Relief] 50 mcg/actuation spray,suspension 1 spray intranasal DAILY PRN (Reason: allergy symptoms) Qty: 16 0RF Rx Instructions: administer into each nostril montelukast 10 mg tablet See Rx Instructions .ROUTE .COMPLEX Qty: 90 1RF Dose Instruction: Take 1 tablet by mouth once daily Rx Instructions: Take 1 tablet by mouth once daily pramipexole 1 mg tablet 1 mg PO .qhs Qty: 90 1RF loratadine [Claritin] 10 mg tablet 10 mg PO DAILY potassium chloride 20 mEq tablet extended release 20 meq PO DAILY Qty: 90 1RF torsemide 20 mg tablet 20 mg PO QAM Qty: 90 1RF fluticasone propion-salmeterol [Advair Diskus] 500-50 mcg/dose blister with device 1 inh inhalation BID Qty: 60 3RF omeprazole 20 mg tablet,delayed release (DR/EC) 20 mg PO DAILY Qty: 90 1RF colestipol 1 gram tablet 1 g PO BID Qty: 180 1RF Discharge Orders: Discharge ED (Routine); Ordered 09/08/24 Ordered By: Chay Hartmann Referrals: Giovanni Ames MD [Primary Care Provider] - 4-7 days Discharge Diet: Cardiac Discharge Activity: Increase activity as tolerated Patient Instructions: Apixaban (By mouth), Deep Vein Thrombosis (ED), Leg Edema (ED) Activity Restrictions/Additional Instructions: Take medications as prescribed please further follow-up with primary care in 3 to 5 days in which please return the interim if any of your symptoms persist or worse. Coding Level of Care Code ED Substance Abuse Counselor for Levi Fwd Documented by User: Jon Wilks DO 09/08/24 23:38 HPI - Extremity Problem General: Chief complaint: Extremity Injury, Lower Stated complaint: L. leg pain Time Seen by Provider: 09/08/24 20:32 Related Data Home Medications Medication Instructions Recorded Confirmed loratadine 10 mg tablet (Claritin) 10 mg PO DAILY 02/16/22 05/08/24 Previous Rx's Medication Instructions Recorded potassium chloride 20 mEq 20 meq PO DAILY #90 tabs 10/17/23 tablet,extended release torsemide 20 mg tablet 20 mg PO QAM #90 tabs 10/17/23 albuterol sulfate 90 mcg/actuation 2 inh inhalation Q6H PRN shortness 11/11/23 breath activated powder inhaler of breath or wheezing #1 ea fluticasone propionate 50 1 spray intranasal DAILY PRN 11/11/23 mcg/actuation nasal allergy symptoms #16 grams spray,suspension (Flonase Allergy Relief) montelukast 10 mg tablet See Rx Instructions .Route 04/13/24 .COMPLEX #90 tabs pramipexole 1 mg tablet 1 mg PO .qhs #90 tabs 04/13/24 fluticasone 500 mcg-salmeterol 50 1 inh inhalation BID #60 ea 05/27/24 mcg/dose blistr powdr for inhalation (Advair Diskus) omeprazole 20 mg tablet,delayed 20 mg PO DAILY #90 tabs 06/16/24 release colestipol 1 gram tablet 1 g PO BID #180 tabs 06/24/24 apixaban 5 mg (74 tabs) tablets in See Rx Instructions PO .COMPLEX 09/08/24 a dose pack (Eliquis DVT-PE Treat #74 ea 30D Start) Allergies Allergy/AdvReac Type Severity Reaction Status Date / Time codeine Allergy nausea Verified 05/08/24 11:13 Corticosteroids Allergy rash Verified 05/08/24 11:13 (Glucocorticoids) gabapentin Allergy retain Verified 05/08/24 11:13 fluid latex Allergy rash Verified 05/08/24 11:13 meloxicam [From Mobic] Allergy Unknown Verified 05/08/24 11:13 oxycodone Allergy rash Verified 05/08/24 11:13 PFSH ED PFSH: Medical History Otitis media Extensor tendinitis of foot Edema Seasonal allergies Restless legs syndrome Surgical History Hx laparoscopic cholecystectomy Hx of meniscectomy of right knee Hx of colonoscopy with polypectomy 3 yrs ago History of section History of thumb surgery Bilateral History of partial thyroidectomy History of appendectomy History of elbow surgery Both Family History Other Anesthesia complication CAD (coronary artery disease) Hyperlipidemia Hypertension Lung disease Stroke Denies family history of Diabetes Clotting disorder Dementia Psychiatric illness Chronic kidney disease (CKD) Suicide Bleeding disorder Family history of premature coronary artery disease Cancer Social History Smoking and tobacco/nicotine status: never used tobacco/nicotine Quit status (tobacco/nicotine): has quit using Former quit date comment: 2015 Alcohol intake: never Substance/Drug Use: never Adopted: No Lives independently: Yes Household members: spouse Marital status: Current occupational status: disabled Whit/Protestant: Pentecostalism Special whit needs: No Agree to transfusion: Yes Course Vital Signs: Vital signs: Vital Signs Temperature 97.7 F 09/08/24 20:31 Pulse Rate 66 09/08/24 22:11 Respiratory Rate 16 09/08/24 20:31 Blood Pressure 134/60 09/08/24 22:11 Pulse Oximetry 94 09/08/24 22:11 MDM - Extremity (Nontraumatic) Medical Decision Making Due to patient's symptoms and condition ultrasound of the lower extremity will be obtained we will continue to follow. 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 This patient was signed out to my colleague Dr. Wilks at 2300. Care transferred over to myself at shift change, waiting for lab work come back, once lab work is back I reviewed it and patient be discharged. Lab Data 09/08/24 23:00 09/08/24 23:00 Radiology Impressions Venous Duplex 09/08/24 20:40 IMPRESSION: Partially occlusive thrombus in the left common femoral and superficial femoral veins which appears chronic. Laboratory Results WBC 8.46 10^3/uL (3.29-11.43) 09/08/24 23:00 RBC 4.85 10^6/uL (3.85-5.65) 09/08/24 23:00 Hgb 12.20 g/dL (11.27-16.99) 09/08/24 23:00 Hct 41.1 % (36-47) 09/08/24 23:00 MCV 84.7 fl (85-98) L 09/08/24 23:00 MCH 25.2 pg (27-33) L 09/08/24 23:00 MCHC 29.7 g/dL (30-55) L 09/08/24 23:00 RDW 14.6 % (12.1-15.1) 09/08/24 23:00 Plt Count 275 10^3/cmm (157-399) 09/08/24 23:00 MPV 9.6 fL (7.4-10.4) 09/08/24 23:00 Neut % (Auto) 65.0 % 09/08/24 23:00 Lymph % (Auto) 24.5 % 09/08/24 23:00 Sibley % (Auto) 8.2 % 09/08/24 23:00 Eos % (Auto) 1.4 % 09/08/24 23:00 Baso % (Auto) 0.5 % 09/08/24 23:00 Neut # (Auto) 5.51 10^3/uL (1.8-7.7) 09/08/24 23:00 Lymph # (Auto) 2.1 10^3/uL (0.8-4.8) 09/08/24 23:00 Sibley # (Auto) 0.7 10^3/uL (0.2-0.9) 09/08/24 23:00 Eos # (Auto) 0.1 10^3/uL (0.0-0.8) 09/08/24 23:00 Baso # (Auto) 0.0 10^3/uL (0.0-0.1) 09/08/24 23:00 Nucleated RBC % (auto) 0 % 09/08/24 23:00 Nucleated RBCs # 0.0 /100WBC 09/08/24 23:00 PT 11.80 SECONDS (12.1-14.9) L 09/08/24 23:00 INR 0.85 (0.8-1.2) 09/08/24 23:00 APTT 26.4 SECONDS (23.9-36.7) 09/08/24 23:00 Sodium 143 mmol/L (136-145) 09/08/24 23:00 Potassium 4.5 mmol/L (3.5-5.1) 09/08/24 23:00 Chloride 107 mmol/L (98-107) 09/08/24 23:00 Carbon Dioxide 24 mmol/L (22-29) 09/08/24 23:00 Anion Gap 16.5 (5-19) 09/08/24 23:00 BUN 20 mg/dL (6-20) 09/08/24 23:00 Creatinine 1.0 mg/dL (0.5-0.9) H 09/08/24 23:00 GFR Calculation 57.1 mL/min (90-130) L 09/08/24 23:00 Glucose 150 mg/dL (65-115) H 09/08/24 23:00 Calculated Osmolality 301 mOsm/kg (285-295) H 09/08/24 23:00 Calcium 9.2 mg/dL (8.5-10.5) 09/08/24 23:00 Total Bilirubin 0.2 mg/dL (0.15-1.2) 09/08/24 23:00 AST 20 U/L (0-32) 09/08/24 23:00 ALT 39 U/L (0-33) H 09/08/24 23:00 Alkaline Phosphatase 109 U/L (35-105) H 09/08/24 23:00 Total Protein 6.1 g/dL (6.6-8.7) L 09/08/24 23:00 Albumin 3.8 g/dL (3.5-5.2) 09/08/24 23:00 Globulin 2.3 g/dL (1.3-4.6) 09/08/24 23:00 Discharge Plan Discharge Patient Disposition: Home Clinical Impression: DVT of deep femoral vein Qualifiers: Laterality: left Qualified Code(s): I82.412 - Acute embolism and thrombosis of left femoral vein Condition: Stable [facility] [facility] Start 5 mg (74 tabs) tablets,dose pack See Rx Instructions .ROUTE .COMPLEX Qty: 74 0RF Rx Instructions: orally per package directions No Action albuterol sulfate 90 mcg/actuation aerosol powdr breath activated 2 inh inhalation Q6H PRN (Reason: shortness of breath or wheezing) Qty: 1 3RF fluticasone propionate [Flonase Allergy Relief] 50 mcg/actuation spray,suspension 1 spray intranasal DAILY PRN (Reason: allergy symptoms) Qty: 16 0RF Rx Instructions: administer into each nostril montelukast 10 mg tablet See Rx Instructions .ROUTE .COMPLEX Qty: 90 1RF Dose Instruction: Take 1 tablet by mouth once daily Rx Instructions: Take 1 tablet by mouth once daily pramipexole 1 mg tablet 1 mg PO .qhs Qty: 90 1RF loratadine [Claritin] 10 mg tablet 10 mg PO DAILY potassium chloride 20 mEq tablet extended release 20 meq PO DAILY Qty: 90 1RF torsemide 20 mg tablet 20 mg PO QAM Qty: 90 1RF fluticasone propion-salmeterol [Advair Diskus] 500-50 mcg/dose blister with device 1 inh inhalation BID Qty: 60 3RF omeprazole 20 mg tablet,delayed release (DR/EC) 20 mg PO DAILY Qty: 90 1RF colestipol 1 gram tablet 1 g PO BID Qty: 180 1RF Discharge Orders: Discharge ED (Routine); Ordered 09/08/24 Ordered By: Chay Hartmann Referrals: Giovanni Ames MD [Primary Care Provider] - 4-7 days Discharge Diet: Cardiac Discharge Activity: Increase activity as tolerated Patient Instructions: Apixaban (By mouth), Deep Vein Thrombosis (ED), Leg Edema (ED) Activity Restrictions/Additional Instructions: Take medications as prescribed please further follow-up with primary care in 3 to 5 days in which please return the interim if any of your symptoms persist or worse. Coding Level of Care Code ED Substance Abuse Counselor for Levi Morales
[2024-09-08 22:11] VITALS: BP 134/60; PULSE 66; O2SAT 94
[2024-09-08 23:09] LABS: Basophils % 0.5 %; Eosinophils # 0.1 10^3/uL (0.0-0.8); Eosinophils % 1.4 %; Hematocrit 41.1 % (36-47); Lymphocytes # 2.1 10^3/uL (0.8-4.8); Lymphocytes % 24.5 %; Mean Corpuscular HGB Conc 29.7 g/dL (30-55); Mean Corpuscular Hemoglobin 25.2 pg (27-33); Mean Corpuscular Volume 84.7 fl (85-98); Mean Platelet Volume 9.6 fL (7.4-10.4); Monocytes # 0.7 10^3/uL (0.2-0.9); Monocytes % 8.2 %; Neutrophils # 5.51 10^3/uL (1.8-7.7); Nucleated Red Blood Cells % 0 %; Platelet Count 275 10^3/cmm (157-399); Red Blood Count 4.85 10^6/uL (3.85-5.65); Red Cell Distribution Width 14.6 % (12.1-15.1); White Blood Count 8.46 10^3/uL (3.29-11.43)
[2024-09-08 23:18] LABS: INR 0.85 (0.8-1.2)
[2024-09-08 23:19] LABS: Partial Thromboplastin Time 26.4 SECONDS (23.9-36.7)
[2024-09-08 23:24] LABS: Alanine Aminotransferase 39 U/L (0-33); Albumin Level 3.8 g/dL (3.5-5.2); Alkaline Phosphatase 109 U/L (35-105); Anion Gap 16.5 (5-19); Aspartate Amino Transferase 20 U/L (0-32); Blood Urea Nitrogen 20 mg/dL (6-20); Calcium 9.2 mg/dL (8.5-10.5); Carbon Dioxide 24 mmol/L (22-29); Chloride 107 mmol/L (98-107); Creatinine Clr Calc Pharmacy 75.2149; Globulin 2.3 g/dL (1.3-4.6); Glomerular Filtration Rate 57.1 mL/min (90-130); Glucose 150 mg/dL (65-115); Osmolality Calculated 301 mOsm/kg (285-295); Potassium 4.5 mmol/L (3.5-5.1); Sodium 143 mmol/L (136-145); Total Bilirubin 0.2 mg/dL (0.15-1.2); Total Protein 6.1 g/dL (6.6-8.7)
[2024-09-08] MEDS: apixaban 5 mg Tablet 10 MG PO (23:45)
[2024-09-08 23:50] VITALS: BP 130/66; PULSE 70; O2SAT 95
== END 2024-09-08 23:52 | disposition home or self-care (01) ==
PROVIDERS: Emergency Provider Emergency Medicine; PCP Family Medicine
DX: I82.412 Acute embolism and thrombosis of left femoral vein (principal); Z87.891 Personal history of nicotine dependence
CPT/HCPCS: 80053; 85025; 85610; 85730; 93971; 99284

== ENCOUNTER 2025-04-02 07:13 | Emergency (ER) | payer MEDICARE, SELFPAY ==
--- OUTSIDE RECORDS SUMMARY | 2025-04-02 07:22 | XMS_ITS | Patient Health Record ---
Author Organization [facility] Address [address] [place] [address] Care Team Providers Care Load Builder Name Role Phone Kaylin Celaya DO Primary Care Provider Unavail able Kev Hayes Unavailable [phone] Allergies No Known Allergies Reason For Referral No Information Medications Medication SIG (Take, Route, Frequency, Duration) Notes Start Date End Date Status Mobic 15 MG 1 (one) Oral daily 02/16/2020 Active rOPINIRole HCl 0.5 MG 1 Oral daily Active Medications Reconciled *please review for potential _update for e-prescription and drug interaction check* Active Medrol 4 MG as directed Orally as directed for 6 days 03/30/2024 Active Omeprazole 20 MG 1 Oral Daily Active Claritin-D 24 Hour 10-240 MG 1 Oral Daily Unknown Social History Tobacco Use: Social History Observation Description Date Details (start date - stop date) Former Smoker NA - NA Tobacco Use/Smoking Question Answer Notes Are you a: former smoker Problems Problem Type SNOMED Code ICD Code Onset Dates Problem Status W/U Status Risk Notes Problem Acquired trigger finger (2247277) Trigger thumb, left thumb (M65.312) Inactive confirmed Problem Viral screening (483790330) Encounter for screening for other viral diseases (Z11.59) Active confirmed Problem Osteoarthritis of knee (061205997) Primary osteoarthritis of right knee (M17.11) Inactive confirmed Problem Psoriasis (8905207) Psoriasis (L40.9) Inactive confirmed Problem Counseling (507162641) ENCOUNTER FOR EDUCATION (Z71.9) Inactive confirmed Problem Medial epicondylitis of elbow joint (26023497) MEDIAL EPICONDYLITIS, LEFT (M77.02) Inactive confirmed Problem Localized, primary osteoarthritis of the hand (254825486) PRIMARY OSTEOARTHRITIS OF FIRST CARPOMETACARPAL JOINT OF LEFT HAND (M18.12) Inactive confirmed Comment:At thi s point, she would like to undergo a left thumb ligament reconstruction with tendon interposition as well as a left medial and lateral epicondyle debridement with reattachment. She understands risks and benefits of surgery. She wishes to proceed., Problem Chronic cough (finding) (08450160) COUGH, PERSISTENT (R05) Inactive confirmed Problem Left flank pain (361669233) LEFT FLANK PAIN (R10.9) Inactive confirmed Problem Postprocedural states (694551244) S/P TRIGGER FINGER RELEASE (Z98.890) Inactive confirmed Problem Dietary management surveillance (511166035) ENCOUNTER FOR DIETARY COUNSELING AND SURVEILLANCE (Z71.3) Inactive confirmed Comment:Discuss ed with patient the importance of weight loss, and achieving a healthy weight. Reviewed ways to set realistic goals, manage portion sizes, decrease caloric intake, increase physical activity and encouraged them to monitor their weight on a regular basis.,Descript ion:DIETARY COUNSELING Problem Globus sensation (811509718) GLOBUS SENSATION (R09.89) Inactive confirmed Problem Localized, primary osteoarthritis of the hand (425170997) PRIMARY OSTEOARTHRITIS OF FIRST CARPOMETACARPAL JOINT OF RIGHT HAND (M18.11) Inactive confirmed Comment:At thi s point, I would like for her to continue to work on strengthening and range of motion exercises. I will see her back in 6 months., Problem 510334692 RADIAL TUNNEL SYNDROME, LEFT (G56.32) Active confirmed Problem Abnormal feces (564710778) POSITIVE COLORECTAL CANCER SCREENING USING COLOGUARD TEST (R19.5) Inactive confirmed Problem Radial styloid tenosynovitis (67406365) DE QUERVAIN'S TENOSYNOVITIS, LEFT (M65.4) Inactive confirmed Problem Mallet finger (63471104) MALLET FINGER (M20.019) Inactive confirmed Problem Kidney stone (93179277) KIDNEY STONE (N20.0) Inactive confirmed Problem Elevated blood-pressure reading without diagnosis of hypertension (444452487) ELEVATED BLOOD PRESSURE READING (R03.0) Inactive confirmed Description:BLANCHE VATED BLOOD PRESSURE READING (796.2 R03.0) Problem Bronchitis (80288195) BRONCHITIS (J40) Inactive confirmed Problem LEFT 6 WEEKS - S/P BASILAR JOINT ARTHRITIS SURGERY (V67.09) (V67.09) Inactive confirmed Description:S/P BASILAR JOINT ARTHRITIS SURGERY (V67.09) Problem Obese class II (finding) (74081422428705 5) CLASS 2 OBESITY (E66.9) Inactive confirmed Description:SAUD SITY, CLASS II (BMI 35-39.9) Problem Ganglion cyst of right wrist (78076859049428 9) GANGLION CYST OF WRIST, RIGHT (M67.431) Inactive confirmed Problem TEAR OF MENISCUS OF RIGHT KNEE, INITIAL ENCOUNTER (S83.206A) Inactive confirmed Comment:Right knee pain with evidence of radial type medial meniscus tear and mild arthritis. I have reviewed the [facility] x-rays and MRI. Plan: We have discussed treatment options. I am going to recommend right knee arthroscopy with possible partial medial meniscectomy versus meniscus repair.The patient understands the risk of RIGHT knee arthroscopy surgery including infection, neurovascular injury, stiffness, weakness, pain, limp, and instability. The patient understands the risk of medical issues including but not limited to stroke, heart attack, and . All of the patient's questions were answered and they would like to proceed with RIGHT knee arthroscopy., Problem Tuberculosis screening (701561001) PPD SCREENING TEST (Z11.1) Inactive confirmed Problem Left lower quadrant pain (203352757) LLQ ABDOMINAL PAIN (R10.32) Inactive confirmed Problem Lateral epicondylitis of left humerus (56256619447509 0) LEFT LATERAL EPICONDYLITIS (M77.12) Inactive confirmed Problem Left knee pain (27363958011660 9) LEFT KNEE PAIN (M25.562) Active confirmed Problem RIGHT - S/P KNEE ARTHROSCOPY (V67.09) (V67.09) Inactive confirmed Description:RIG HT S/P KNEE ARTHROSCOPY (V67.09) Problem Osteoarthritis of knee (405799396) PRIMARY OSTEOARTHRITIS OF LEFT KNEE (M17.12) Active confirmed Problem Acquired trigger finger (8529595) TRIGGER FINGER (727.03) - SURGERY (727.03) Inactive confirmed Description :TRI GGER FINGER (727.03) Problem Ganglion cyst of left wrist (22894321380576 0) GANGLION CYST OF WRIST, LEFT (M67.432) Inactive confirmed Plan Of Treatment Pending Test Test Name Order Date ORTHO ELBOW LEFT 3 VIEW - 30230 12/03/19 24 ORTHO HAND RIGHT 3 VIEW - 25565 06/20/20 21 ORTHO KNEE LEFT 3 VIEW - 17950 4 Venipuncture[i] 09/20/2020 Future Test Test Name Order Date Basic Metabolic Panel 06/27/2021 Insurance Providers Payer Name Payer Address Payer Phone Subscriber Number Group Number Insured Name Patient Relationship to Insured Coverage Start Date Coverage End Date [place] [employer] [place] [address] [address] [place] [address] [id number] CALI HURLEY Self - patient is the insured 4 [place] [employer] [place] [address] [place] [address] [id number] CALI HURLEY Self - patient is the insured [email or web address] [address] [place] [id number] HURLEYCARYL GIORDANOY Spouse - patient is the spouse of the insured [email or web address] [address] [place] [address] [phone] [id number] HURLEYCARYL GIORDANOY Spouse - patient is the spouse of the insured [employer] [address] [place] [phone] CALI HURLEY Self - patient is the insured Medications Administered Medication Instructions Date of Administration Dosage Notes Kenalog 12/03/2023 40 mg Medical (General) History Medical History History ICD Code Problems: ELEVATED BLOOD PRE SSURE READING, DESCRIPTION: ELEVATED BLOOD PRESSURE READING (796.2 R03.0), ProblemStatus: Active, GANGLION CYST OF WRIST, LEFT, ProblemSta tus: Active, GANGLION CYST OF WRIST, RIGHT, ProblemSt atus: Active, GLOBUS SENSATION, ProblemStatus: Active, No Known Problems, ProblemStatus: Inacti ve, POSITIVE COLORECTAL CANCER S CREENING USING COLOGUARD TEST, ProblemStatus: Active, Psoriasis, ProblemStatus: Active, TEAR OF MENISCUS OF RIGHT KNEE, INITIAL ENCOUNTER, ProblemStatus: Active, Surgical History Surgery Date(Month/Year) Thyroid Lobectomy, COMMENTS: Left-02/2012 , ProblemStatus: Active, Left Ring Finger, ProblemStatus: Active, 1984-09-09 Cyst Removal, COMMENTS: Lots , by Dr. Brandi Ellis, ProblemStatus: Active, Section, COMMENTS: 2x, ProblemS tatus: Active,
--- OUTSIDE RECORDS SUMMARY | 2025-04-02 07:22 | XMS_ITS | Clinical Summary ---
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 Gender Identity Not on file Sexual Orientation Not on file Plan of Treatment Health Maintenance Due Date Last Done Comments DTAP/TDAP/TD VACCINES (1 - Tdap) 1986 HEPATITIS B VACCINES (1 of 3 - 19+ 3-dose series) 03/1986 HPV/Cotest (21-29) 1988 CERVICAL CANCER SCREENING 1997 HPV/Cotest (30-65) 1997 PAP SMEAR 1997 BREAST CANCER SCREENING 2007 COLORECTAL SCREENING 2012 Colorectal Cancer Screening 2012 FIT-DNA Q 3 years 2012 FIT/FOBT Q 1 year 2012 Flex Sig/CT Colonography Q 5 years 2012 ZOSTER VACCINE (1 of 2) 2017 INFLUENZA VACCINE (#1) 2025 Insurance DISABILITY DETERMINATION Care Teams Branch Chief Relationship Specialty Start Date End Date Non-Staff, Physician NO ADDRESS ON FILE PCP - General 10/25/21
[2025-04-02 07:23] VITALS: BP 186/97; PULSE 65; RESP 18; TEMP 36.8; O2SAT 98; BMI 51.0
--- NOTE | 2025-04-02 07:31 | W.ED.EXTPRO ---
HPI - Extremity Problem General: Chief complaint: Extremity Problem,Nontraumatic Stated complaint: Thinks having a blood clot Time Seen by Provider: 04/02/25 07:28 History of Present Illness: 59-year-old female presents to the emergency room complaining of pelvic pain some swelling in her left leg. She previously had what appeared to be chronic DVT in the left superficial and common femoral veins that appear to be chronic she was kept on anticoagulation for 3 months and then stopped because of the appearance of the chronicity. Recently she is complaining of increased discomfort swelling in the left leg she is concerned she has a recurrent. Associated symptoms: Deny chest pain, fever(s) or rash Related Data Home Medications ?Medication ?Instructions ?Recorded ?Confirmed loratadine 10 mg tablet (Claritin) 10 mg PO DAILY 02/16/22 04/02/25 colestipol 1 gram tablet (Colestid) 1 g PO BID 04/02/25 04/02/25 Previous Rx's ?Medication ?Instructions ?Recorded torsemide 20 mg tablet 20 mg PO QAM #90 tabs 10/17/23 fluticasone propionate 50 1 spray intranasal DAILY PRN 11/11/23 mcg/actuation nasal allergy symptoms #16 grams spray,suspension (Flonase Allergy Relief) fluticasone 500 mcg-salmeterol 50 1 inh inhalation BID #60 ea 10/05/24 mcg/dose blistr powdr for inhalation (Advair Diskus) albuterol sulfate 90 mcg/actuation 2 inh inhalation Q6H PRN shortness 10/13/24 breath activated powder inhaler of breath or wheezing #1 ea montelukast 10 mg tablet See Rx Instructions .Route 11/03/24 .COMPLEX #90 tabs pramipexole 1 mg tablet 1 mg PO .qhs #90 tabs 12/03/24 omeprazole 20 mg capsule,delayed 20 mg PO DAILY #90 caps 12/18/24 release potassium chloride 20 mEq 20 meq PO DAILY #90 tabs 12/18/24 tablet,extended release aspirin 81 mg tablet 81 mg PO DAILY #30 tabs 04/02/25 diclofenac sodium 75 mg 75 mg PO Q12H PRN pain #20 tabs 04/02/25 tablet,delayed release Allergies Allergy/AdvReac Type Severity Reaction Status Date / Time codeine Allergy nausea Verified 03/02/25 12:55 Corticosteroids Allergy rash Verified 03/02/25 12:55 (Glucocorticoids) gabapentin Allergy retain Verified 03/02/25 12:55 fluid latex Allergy rash Verified 03/02/25 12:55 meloxicam (From Mobic) Allergy Unknown Verified 03/02/25 12:55 oxycodone Allergy rash Verified 03/02/25 12:55 Review of Systems Const: Denies: fever(s) or chills Card: Denies: chest pain Resp: Denies: dyspnea GI: Denies: abdominal pain : Denies: dysuria, urinary frequency or urinary urgency Musc: Reports: extremity pain and extremity swelling; Denies: neck pain or back pain Skin/Breast: Denies: rash PFSH ED PFSH: Medical History URI with cough and congestion Otitis media Extensor tendinitis of foot Edema Seasonal allergies Restless legs syndrome Surgical History Hx laparoscopic cholecystectomy Hx of meniscectomy of right knee Hx of colonoscopy with polypectomy 3 yrs ago History of section History of thumb surgery Bilateral History of partial thyroidectomy History of appendectomy History of elbow surgery Both Family History Other Anesthesia complication CAD (coronary artery disease) Hyperlipidemia Hypertension Lung disease Stroke Denies family history of Diabetes Clotting disorder Dementia Psychiatric illness Chronic kidney disease (CKD) Suicide Bleeding disorder Family history of premature coronary artery disease Cancer Social History Smoking and tobacco/nicotine status: former use of tobacco/nicotine Quit status (tobacco/nicotine): has quit using Former quit date comment: 2016 Alcohol intake: never Substance/Drug Use: never Adopted: No Lives independently: Yes Household members: spouse Marital status: Current occupational status: disabled Whit/Amish: Sikh Special whit needs: No Agree to transfusion: Yes Physical Exam Const: COMMON NORMALS: no acute distress GENERAL APPEARANCE: cooperative and comfortable ORIENTATION/CONSCIOUSNESS: Yes awake, Yes oriented to person, Yes oriented to place and Yes oriented to time HENMT: COMMON NORMALS: normocephalic, atraumatic and hearing grossly normal bilaterally HEAD & SCALP: normocephalic and atraumatic Resp: COMMON NORMALS: normal respiratory effort, No retractions, No use of accessory muscles and clear to auscultation bilaterally AUSCULTATION: clear to auscultation bilaterally Cardio: COMMON NORMALS: regular rate, regular rhythm and No murmurs present (Cardio) RATE: regular rate RHYTHM: regular rhythm GI: COMMON NORMALS: Soft to palpation and No hepatosplenomegaly present AUSCULTATION: Yes normoactive bowel sounds PALPATION: Yes Soft to palpation, No Tenderness to palpation present (GI), No Guarding due to palpation present (GI) and Yes No hepatosplenomegaly present Extremity: COMMON NORMALS: normal to inspection, capillary refill normal, no clubbing, cyanosis or edema, no calf tenderness and no pedal edema Neuro: SENSORIUM/ORIENTATION: Yes oriented to person, Yes oriented to place and Yes oriented to time Skin: COMMON NORMALS: no rashes or lesions noted GENERAL SKIN EXAM: no rashes or lesions noted Course Vital Signs: Vital signs: Vital Signs Temperature 98.2 F 04/02/25 07:23 Pulse Rate 60 04/02/25 10:28 Respiratory Rate 18 04/02/25 07:23 Blood Pressure 197/81 04/02/25 10:28 Pulse Oximetry 99 04/02/25 10:28 Oxygen Delivery Me thod Room Air 04/02/25 10:00 MDM - Extremity (Nontraumatic) Medical Decision Making Venous duplex shows chronic superficial and common femoral DVT unchanged from August of last year. Discussed with Dr. Aguiar she did not feel this represented an acute DVT. We did do a plain x-ray as well some narrowing of the joint but no fracture of the left hip. Suspect that some of this may be musculoskeletal at this point I do not believe restarting anticoagulation is necessary. I also discussed Dr. Cortez primary care doctor but stopped her anticoagulation initially and he agreed at this point not to reinitiate. Will have patient follow-up with her primary care doctor next week. Reviewed with the patient. Medical Records I reviewed the patient's medical records. Lab Data I reviewed the patient's lab results. 04/02/25 07:33 04/02/25 07:33 Radiology Impressions Hip/Pelvis X-Ray 04/02/25 09:25 Impression: Negative left hip. Laboratory Results WBC 7.15 10^3/uL (3.29-11.43) 04/02/25 07:33 RBC 5.25 10^6/uL (3.85-5.65) 04/02/25 07:33 Hgb 12.90 g/dL (11.27-16.99) 04/02/25 07:33 Hct 46.1 % (36-47) 04/02/25 07:33 MCV 87.8 fl (85-98) 04/02/25 07:33 MCH 24.6 pg (27-33) L 04/02/25 07:33 MCHC 28.0 g/dL (30-55) L 04/02/25 07:33 RDW 15.0 % (12.1-15.1) 04/02/25 07:33 Plt Count 223 10^3/cmm (157-399) 04/02/25 07:33 MPV 10.4 fL (7.4-10.4) 04/02/25 07:33 Neut % (Auto) 66.3 % 04/02/25 07:33 Lymph % (Auto) 22.9 % 04/02/25 07:33 [place] % (Auto) 8.4 % 04/02/25 07:33 Eos % (Auto) 1.3 % 04/02/25 07:33 Baso % (Auto) 0.7 % 04/02/25 07:33 Neut # (Auto) 4.74 10^3/uL (1.8-7.7) 04/02/25 07:33 Lymph # (Auto) 1.6 10^3/uL (0.8-4.8) 04/02/25 07:33 [place] # (Auto) 0.6 10^3/uL (0.2-0.9) 04/02/25 07:33 Eos # (Auto) 0.1 10^3/uL (0.0-0.8) 04/02/25 07:33 Baso # (Auto) 0.1 10^3/uL (0.0-0.1) 04/02/25 07:33 Nucleated RBC % (auto) 0 % 04/02/25 07:33 Nucleated RBCs # 0.0 /100WBC 04/02/25 07:33 Sodium 139 mmol/L (136-145) 04/02/25 07:33 Potassium 4.3 mmol/L (3.5-5.1) 04/02/25 07:33 Chloride 104 mmol/L (98-107) 04/02/25 07:33 Carbon Dioxide 23 mmol/L (22-29) 04/02/25 07:33 Anion Gap 16.3 (5-19) 04/02/25 07:33 BUN 15 mg/dL (6-20) 04/02/25 07:33 Creatinine 0.8 mg/dL (0.5-0.9) 04/02/25 07:33 GFR Calculation 73.9 mL/min (90-130) L 04/02/25 07:33 Glucose 109 mg/dL (65-115) 04/02/25 07:33 Calculated Osmolality 289 mOsm/kg (285-295) 04/02/25 07:33 Calcium 8.9 mg/dL (8.5-10.5) 04/02/25 07:33 Total Bilirubin 0.4 mg/dL (0.15-1.2) 04/02/25 07:33 AST 16 U/L (0-32) 04/02/25 07:33 ALT 26 U/L (0-33) 04/02/25 07:33 Alkaline Phosphatase 115 U/L (35-105) H 04/02/25 07:33 Total Protein 6.7 g/dL (6.6-8.7) 04/02/25 07:33 Albumin 3.8 g/dL (3.5-5.2) 04/02/25 07:33 Globulin 2.9 g/dL (1.3-4.6) 04/02/25 07:33 Urine Color Yellow (Yellow) 04/02/25 07:49 Urine Appearance Clear (CLEAR) 04/02/25 07:49 Urine pH 6.5 (5-7) 04/02/25 07:49 Ur Specific [place] 1.020 (1.005-1.030) 04/02/25 07:49 Urine Protein Negative (Negative) 04/02/25 07:49 Urine Glucose (UA) Negative (Normal) 04/02/25 07:49 Urine Ketones Negative (Negative) 04/02/25 07:49 Urine Blood Negative (Negative) 04/02/25 07:49 Urine Nitrate Negative (Negative) 04/02/25 07:49 Urine Bilirubin Negative (Negative) 04/02/25 07:49 Urine Urobilinogen 1.0 mg/dL (Negative) 04/02/25 07:49 Ur Leukocyte Esterase Negative (Negative) 04/02/25 07:49 Urine RBC 0-2 /hpf (0-2) 04/02/25 07:49 Urine WBC 0-5 /hpf (0-5) 04/02/25 07:49 Ur Squamous Epith Cells 0-5 /hpf (0-5) 04/02/25 07:49 Amorphous Sediment Not Reportable 04/02/25 07:49 Urine Bacteria None seen /hpf (NONE) 04/02/25 07:49 Hyaline Casts 0.40 /lpf 04/02/25 07:49 All radiology interpretation(s) finalized by discharge Discharge Plan Discharge Patient Disposition: Home Clinical Impression: Leg pain, left, Chronic deep vein thrombosis (DVT) of left femoral vein Condition: Stable Prescriptions: New diclofenac sodium 75 mg tablet,delayed release (DR/EC) 75 mg PO Q12H PRN (Reason: pain) Qty: 20 0RF aspirin 81 mg tablet 81 mg PO DAILY Qty: 30 0RF No Action fluticasone propionate [Flonase Allergy Relief] 50 mcg/actuation spray,suspension 1 spray intranasal DAILY PRN (Reason: allergy symptoms) Qty: 16 0RF Rx Instructions: administer into each nostril loratadine [Claritin] 10 mg tablet 10 mg PO DAILY torsemide 20 mg tablet 20 mg PO QAM Qty: 90 1RF fluticasone propion-salmeterol [Advair Diskus] 500-50 mcg/dose blister with device 1 inh inhalation BID Qty: 60 3RF albuterol sulfate 90 mcg/actuation aerosol powdr breath activated 2 inh inhalation Q6H PRN (Reason: shortness of breath or wheezing) Qty: 1 3RF montelukast 10 mg tablet See Rx Instructions .ROUTE .COMPLEX Qty: 90 1RF Dose Instruction: Take 1 tablet by mouth once daily Rx Instructions: Take 1 tablet by mouth once daily pramipexole 1 mg tablet 1 mg PO .qhs Qty: 90 1RF potassium chloride 20 mEq tablet extended release 20 meq PO DAILY Qty: 90 1RF omeprazole 20 mg capsule,delayed release(DR/EC) 20 mg PO DAILY Qty: 90 1RF colestipol [Colestid] 1 gram tablet 1 g PO BID Discharge Orders: Discharge ED (Routine); Ordered 04/02/25 Ordered By: Santy Singh Referrals: Giovanni Ames MD [Primary Care Provider, [facility]] Discharge Diet: Usual diet Discharge Activity: Resume usual activity Patient Instructions: Opioid Safety, Pain Management, Patient Portal & Sharri Instructions Activity Restrictions/Additional Instructions: Thank you for choosing [facility] for your healthcare needs today. It is very important that you follow up as instructed or that you return to the Emergency Department should you have concerns or if your condition changes or worsens in any way. You were seen in the emergency room with concerns of left leg pain. Ultrasound for blood clot showed a chronic DVT did not show significant change from the ultrasound in August 2024. Reviewed your old records and discussed with your primary care physician Dr. Ames. At this time we are not recommending resuming anticoagulants. The imaging shows what appears to be a chronic DVT not acute. Would recommend that he start baby aspirin daily. We did do an x-ray of the hip as well which showed some mild narrowing of the hip joint but no fractures. You are given a prescription for diclofenac to use as needed for discomfort. Follow-up with Dr. Ames next week. Print Language: Nepali Coding Level of Care Code ED Duplicating Machine Operator for Levi Morales
[2025-04-02 07:39] LABS: Hematocrit 46.1 % (36-47); Hemoglobin 12.90 g/dL (11.27-16.99); Mean Corpuscular HGB Conc 28.0 g/dL (30-55); Mean Corpuscular Hemoglobin 24.6 pg (27-33); Mean Corpuscular Volume 87.8 fl (85-98); Nucleated Red Blood Cells % 0 %; Platelet Count 223 10^3/cmm (157-399); Red Blood Count 5.25 10^6/uL (3.85-5.65); White Blood Count 7.15 10^3/uL (3.29-11.43)
--- NOTE | 2025-04-02 07:41 | USCV_ITS ---
HaydenLibia garrett Age: 59 Gender: F : 1965 Exam Date: 04/02/2025 08:09 Ordering Phys: Santy Singh DO Technologist: [employer] [place]am [place] [facility] [place] Indication: lef leg pain-previous ultrasound dictates chronic dvt in left CFV HISTORY: History of chronic DVT, LEFT LEG PAIN PROCEDURES: Comparison:. 09/08/24 Venous duplex imaging was performed in only the left lower extremity. The following venous structures were evaluated: common femoral vein, profunda vein, proximal portion of the greater saphenous vein, superficial femoral vein, and the popliteal vein. In addition, the posterior tibial and peroneal trunk were evaluated. FINDINGS: Junction of the left femoral vein and GSV does not compress and slow flow seen.Similar pattern as on the prior exam. Partial thrombus with incomplete occlusion is reidentified. Otherwise normal exam. 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 Dr. Marisabel Aguiar DO (Electronically Signed) Final Date: 02 April 2025 08:44 S
[2025-04-02 07:55] LABS: Glucose Urine UA Negative (Normal); Nitrate Urine Negative (Negative); Specific Gravity, Urine 1.020 (1.005-1.030)
[2025-04-02 07:57] LABS: Alanine Aminotransferase 26 U/L (0-33); Albumin Level 3.8 g/dL (3.5-5.2); Alkaline Phosphatase 115 U/L (35-105); Aspartate Amino Transferase 16 U/L (0-32); Blood Urea Nitrogen 15 mg/dL (6-20); Calcium 8.9 mg/dL (8.5-10.5); Carbon Dioxide 23 mmol/L (22-29); Chloride 104 mmol/L (98-107); Creatinine Clr Calc Pharmacy 95.1298; Globulin 2.9 g/dL (1.3-4.6); Glucose 109 mg/dL (65-115); Osmolality Calculated 289 mOsm/kg (285-295); Sodium 139 mmol/L (136-145); Total Protein 6.7 g/dL (6.6-8.7)
[2025-04-02 08:00] LABS: Add Urine Microscopic? YES
[2025-04-02 08:00] LABS: Anion Gap 16.3 (5-19); Potassium 4.3 mmol/L (3.5-5.1)
--- NOTE | 2025-04-02 09:25 | XR_ITS ---
WS: [id number] Left hip, AP and frog-leg views, 04/02/2025 Clinical Data: pain Comparison: None. Findings: No fractures or dislocations are seen. The hip joint is intact. No erosion, sclerosis, narrowing or cyst formation is seen. The soft tissues are not remarkable. The adjacent pelvis is normal. XR/XR hip LT 2-3V wo/w pel* [id number] Impression: Negative left hip.
[2025-04-02 10:00] VITALS: PULSE 70; O2SAT 99
[2025-04-02 10:28] VITALS: BP 197/81; PULSE 60; O2SAT 99
== END 2025-04-02 10:29 | disposition home or self-care (01) ==
PROVIDERS: Emergency Provider Family Medicine; PCP Family Medicine
DX: M79.605 Pain in left leg (principal); I82.512 Chronic embolism and thrombosis of left femoral vein; Z87.891 Personal history of nicotine dependence
CPT/HCPCS: 73502; 80053; 81001; 85025; 93971; 99284

== ENCOUNTER → 2025-07-28 09:30 | Outpatient (BNVA) | payer MEDICARE, SELFPAY | PROVIDERS: PCP Family Medicine; Visit Provider Surgery | DX: Z12.11 Encounter for screening for malignant neoplasm of colon (principal); R03.0 Elevated blood-pressure reading, without diagnosis of hypertension | CPT/HCPCS: 99204 ==

== ENCOUNTER 2025-08-17 08:04 | Outpatient (CLI) | payer MEDICARE, SELFPAY ==
--- NOTE | 2025-08-17 08:10 | MM_ITS ---
WS: [id number] BILATERAL 3D TOMOSYNTHESIS DIGITAL SCREENING MAMMOGRAPHY WITH CAD CLINICAL INFORMATION: SCREENING HISTORY: Screening mammogram. No current complaints. COMPARISON: 2023 TECHNIQUE: Bilateral CC and MLO views. FINDINGS: Scattered fibroglandular densities bilaterally. No suspicious focal mass, asymmetry, calcifications, or architectural distortion. No evidence of malignancy. Stable RIGHT breast biopsy clip with associated nodule MM/MM scr BI tomosynthesis [id number] IMPRESSION: DENSITY: There are scattered areas of fibroglandular density. BI-RADS: 2 - Benign. FOLLOW UP: 1 Year Follow-up Recommend return to annual screening mammography.
== END 2025-08-17 08:05 | disposition home or self-care (01) ==
LOC: RAD 08:05
DX: Z12.31 Encounter for screening mammogram for malignant neoplasm of breast (principal); R92.323 Mammographic fibroglandular density, bilateral breasts; Z96.89 Presence of other specified functional implants
CPT/HCPCS: 77063; 77067

== ENCOUNTER 2025-08-27 21:24 | Emergency (ER) | payer MEDICARE, SELFPAY ==
--- NOTE | 2025-08-27 | USR_ITS ---
[facility] Final Radiology Report Call: [phone] assistance Online chat: [email or web address] Name: CALI HURLEY Age: 60Years F Date: 08/28/2025 SSN: -- : [id number] Study: US DUPLEX EXTREM VEINS UNILAT OR LTD Requesting Physician: SHAY VENTURA Images: [id number] Add?l Studies: Provided Clinical History: Page 1 of 2 PROCEDURE INFORMATION: Exam: US Duplex Left Lower Extremity Veins, Limited Exam date and time: 08/28/2025 1:05 AM Age: 60 years old Clinical indication: Pain; Leg, upper and leg, lower; Left TECHNIQUE: Imaging protocol: Real-time duplex ultrasound of the left extremity with 2-D crocker scale, color Doppler flow and spectral waveform analysis including responses to compression and other maneuvers (when performed) with image documentation. Limited exam focused on the left lower extremity veins. COMPARISON: No relevant prior studies available . FINDINGS: Left deep veins: Unremarkable. The common femoral, femoral, proximal profunda femoral and popliteal veins are patent without thrombus. Normal Doppler waveforms. Normal compressibility and/or augmentation response. Superficial veins: Greater saphenous vein at the saphenofemoral junction is patent without thrombus. Soft tissues: Unremarkable. Other findings: Clinical Rehab Specialist notes that patient demonstrates painful response with compression of the proximal thigh in the region of the left common femoral vein and greater saphenous junction. There is limited compressibility of this region (potentially due to body habitus) as noted on cine sequences. However, no occlusive thrombus is identified. IMPRESSION: No evidence of deep vein thrombosis. Thank you for allowing us to participate in the care of your patient. Dictated and Authenticated by: Donta Sahu MD 08/28/2025 1:52 AM Central Time ([place] & [place]) GAMALIEL
--- OUTSIDE RECORDS SUMMARY | 2025-08-27 21:29 | XMS_ITS | Encounter Summary ---
Author Organization [facility] Address [address] [place] [address] Care Team Providers Care Children'S Minister Name Role Phone Soni Pemberton Primary Care Provider [phone]- [phone] Encounter Details Date Type Department Care Team (Late Contact Info) Description 07/15/2025 Results Follow-Up [facility] [address] [place] [address] December, [place] [address] COLON CANCER SCREEN, STOOL DNA Social History Tobacco Use Types Packs/Day Years Used Date Smoking Tobacco: Never Passive Smoke Exposure: Never Smokeless Tobacco: Never Alcohol Use Standard Drinks/Week Comments Not Currently 0 (1 standard drink = 0.6 oz pur e alcohol) Comments Unknown Sex and Gender Information Value Date Recorded Sex Assigned at Not on file Legal Sex Female 2:[address] Gender Identity Not on file Sexual Orientation Not on file documented as of this encounter Plan of Treatment Upcoming Encounters Date Type Department Care Team (Late Contact Info) Description 11/08/2025 8:00 AM [address] Office Visit [facility] [address] [place] [address] December, [facility] [place] [address] documented as of this encounter Visit Diagnoses Not on filedocumented in this encounter Care Teams Children'S Minister Relationship Specialty Start Date End Date Soni Pemberton DO [address] [place] [address] PCP - General Family Practice 08/10/25 documented as of this encounter
--- OUTSIDE RECORDS SUMMARY | 2025-08-27 21:29 | XMS_ITS | Encounter Summary ---
Author Organization [facility] Address [address] [place] [address] Care Team Providers Care Black Powder Glazing Operator Name Role Phone Soni Pemberton Primary Care Provider [phone]- [phone] Encounter Details Date Type Department Care Team ([facility] Contact Info) Description 08/23/2025 Results Follow-Up [facility] [address] [place] [address] December, [place] [address] MAMMO 3D JUDIE SCREEN BILAT W OR WO CAD Social History Tobacco Use Types Packs/Day Years Used Date Smoking Tobacco: Never Passive Smoke Exposure: Never Smokeless Tobacco: Never Alcohol Use Standard Drinks/Week Comments Not Currently 0 (1 standard drink = 0.6 oz pur e alcohol) Comments Unknown Sex and Gender Information Value Date Recorded Sex Assigned at Not on file Legal Sex Female 2:26 PM HOT KETTLE TENDER Gender Identity Not on file Sexual Orientation Not on file documented as of this encounter Plan of Treatment Upcoming Encounters Date Type Department Care Team (Late Contact Info) Description 11/08/2025 8:00 AM HOT KETTLE TENDER Office Visit [facility] [address] [place] [address] December, GUN PROFILER[address] [place] [address] documented as of this encounter Visit Diagnoses Not on filedocumented in this encounter Care Teams Black Powder Glazing Operator Relationship Specialty Start Date End Date Soni Pemberton DO [address] [place] [address] PCP - General Family Practice 08/10/25 documented as of this encounter
--- OUTSIDE RECORDS SUMMARY | 2025-08-27 21:29 | XMS_ITS | Patient Health Record ---
Author Organization [facility] Address [address] [place] [address] Care Team Providers Care Fleshing Machine Operator Name Role Phone Kaylin Celaya DO Primary Care Provider Unavail able Kev Hayes Unavailable [phone] Allergies No Known Allergies Reason For Referral No Information Medications Medication SIG (Take, Route, Frequency, Duration) Notes Start Date End Date Status Mobic 15 MG Tablet 1 (one) Oral daily 02/16/2020 Active rOPINIRole HCl 0.5 MG Tablet 1 Oral daily Active Medications Reconciled *please review for potential _update for e-prescription and drug interaction check* Active Medrol 4 MG Tablet Therapy Pack as directed Orally as directed; Duration: 6 days 03/30/2024 Active Omeprazole 20 MG Capsule Delayed Release 1 Oral Daily Active Claritin-D 24 Hour 10-240 MG Tablet Extended Release 24 Hour 1 Oral Daily Unknown Social History Tobacco Use: Social History Observation Description Date Details (start date - stop date) Former Smoker NA - NA Social History Tobacco Use: Social Info Question Answer Notes Tobacco Use/Smoking Are you a: former smoker Additional Details Category Social Info Options Details Migrated Social History Migrated Social History Alcohol Use, COMMENTS: 1 a week, ProblemStatus: Active, , Drug Use, AttributeTitle: No drug use, ProblemStatus: Active, , Living Situation, AttributeTitle: , ProblemStatus: Active, , Most Recent Primary Occupation, COMMENTS: Sewing, ProblemStatus: Active, , Tobacco Use, AttributeTitle: Current every day smoker, ProblemStatus: Inactive, , Tobacco Use, AttributeTitle: Former smoker, ProblemStatus: Active, , Tobacco Use, AttributeTitle: Has been smoking for 30 years, ProblemStatus: Inactive, , Tobacco Use, AttributeTitle: Smokes 1 pack of cigarettes per day, ProblemStatus: Inactive Problems Problem Type SNOMED Code ICD Code Onset Dates Problem Status W/U Status Risk Notes Problem Acquired trigger finger (5694009) Trigger thumb, left thumb (M65.312) Inactive confirmed Problem Viral screening (625731076) Encounter for screening for other viral diseases (Z11.59) Active confirmed Problem Osteoarthritis of knee (843251800) Primary osteoarthritis of right knee (M17.11) Inactive confirmed Problem Psoriasis (0513550) Psoriasis (L40.9) Inactive confirmed Problem Counseling (501782191) ENCOUNTER FOR EDUCATION (Z71.9) Inactive confirmed Problem Medial epicondylitis of elbow joint (22904404) MEDIAL EPICONDYLITIS, LEFT (M77.02) Inactive confirmed Problem Localized, primary osteoarthritis of the hand (255208858) PRIMARY OSTEOARTHRITIS OF FIRST CARPOMETACARPAL JOINT OF LEFT HAND (M18.12) Inactive confirmed Comment:At thi s point, she would like to undergo a left thumb ligament reconstruction with tendon interposition as well as a left medial and lateral epicondyle debridement with reattachment. She understands risks and benefits of surgery. She wishes to proceed., Problem Chronic cough (finding) (06330380) COUGH, PERSISTENT (R05) Inactive confirmed Problem Left flank pain (248751287) LEFT FLANK PAIN (R10.9) Inactive confirmed Problem Postprocedural states (375417433) S/P TRIGGER FINGER RELEASE (Z98.890) Inactive confirmed Problem Dietary management surveillance (010240324) ENCOUNTER FOR DIETARY COUNSELING AND SURVEILLANCE (Z71.3) Inactive confirmed Comment:Discuss ed with patient the importance of weight loss, and achieving a healthy weight. Reviewed ways to set realistic goals, manage portion sizes, decrease caloric intake, increase physical activity and encouraged them to monitor their weight on a regular basis.,Descript ion:DIETARY COUNSELING Problem Globus sensation (598475693) GLOBUS SENSATION (R09.89) Inactive confirmed Problem Localized, primary osteoarthritis of the hand (393784122) PRIMARY OSTEOARTHRITIS OF FIRST CARPOMETACARPAL JOINT OF RIGHT HAND (M18.11) Inactive confirmed Comment:At thi s point, I would like for her to continue to work on strengthening and range of motion exercises. I will see her back in 6 months., Problem Lesion of radial nerve (916270050) RADIAL TUNNEL SYNDROME, LEFT (G56.32) Active confirmed Problem Abnormal feces (496187549) POSITIVE COLORECTAL CANCER SCREENING USING COLOGUARD TEST (R19.5) Inactive confirmed Problem Radial styloid tenosynovitis (95260560) DE QUERVAIN'S TENOSYNOVITIS, LEFT (M65.4) Inactive confirmed Problem Mallet finger (67355930) MALLET FINGER (M20.019) Inactive confirmed Problem Kidney stone (67062914) KIDNEY STONE (N20.0) Inactive confirmed Problem Elevated blood-pressure reading without diagnosis of hypertension (977909593) ELEVATED BLOOD PRESSURE READING (R03.0) Inactive confirmed Description:BLANCHE VATED BLOOD PRESSURE READING (796.2 R03.0) Problem Bronchitis (11193950) BRONCHITIS (J40) Inactive confirmed Problem LEFT 6 WEEKS - S/P BASILAR JOINT ARTHRITIS SURGERY (V67.09) (V67.09) Inactive confirmed Description:S/P BASILAR JOINT ARTHRITIS SURGERY (V67.09) Problem Obese class II (finding) (98234680144357 5) CLASS 2 OBESITY (E66.9) Inactive confirmed Description:OBE SITY, CLASS II (BMI 35-39.9) Problem Ganglion cyst of right wrist (74828477229938 9) GANGLION CYST OF WRIST, RIGHT (M67.431) Inactive confirmed Problem TEAR OF MENISCUS OF RIGHT KNEE, INITIAL ENCOUNTER (S83.206A) Inactive confirmed Comment:Right knee pain with evidence of radial type medial meniscus tear and mild arthritis. I have reviewed the M x-rays and MRI. Plan: We have discussed [...] with RIGHT knee arthroscopy., Problem Tuberculosis screening (292655212) PPD SCREENING TEST (Z11.1) Inactive confirmed Problem Left lower quadrant pain (327230292) LLQ ABDOMINAL PAIN (R10.32) Inactive confirmed Problem Lateral epicondylitis of left humerus (85124254914121 0) LEFT LATERAL EPICONDYLITIS (M77.12) Inactive confirmed Problem Left knee pain (72100741794172 9) LEFT KNEE PAIN (M25.562) Active confirmed Problem RIGHT - S/P KNEE ARTHROSCOPY (V67.09) (V67.09) Inactive confirmed Description:RIG HT S/P KNEE ARTHROSCOPY (V67.09) Problem Osteoarthritis of knee (206049042) PRIMARY OSTEOARTHRITIS OF LEFT KNEE (M17.12) Active confirmed Problem Acquired trigger finger (9883301) TRIGGER FINGER (727.03) - SURGERY (727.03) Inactive confirmed Description :TRI GGER FINGER (727.03) Problem Ganglion cyst of left wrist (39512064068916 0) GANGLION CYST OF WRIST, LEFT (M67.432) Inactive confirmed Plan Of Treatment Pending Test Test Name Order Date ORTHO ELBOW LEFT 3 VIEW - 30154 12/03/19 24 ORTHO HAND RIGHT 3 VIEW - 76230 06/20/20 21 ORTHO KNEE LEFT 3 VIEW - 67208 4 Venipuncture[i] 09/20/2020 Future Test Test Name Order Date Basic Metabolic Panel 06/27/2021 Insurance Providers Payer Name Payer Address Payer Phone Subscriber Number Group Number Insured Name Patient Relationship to Insured Coverage Start Date Coverage End Date OR [employer] MEDICARE [address] [address] [place] [address] [id number] CALI HURLEY Self - patient is the insured 4 [facility] MEDICAID [address] [place] [address] [id number] CALI HURLEY Self - patient is the insured [employer] [address] [place] [phone] [id number] OSVALDO HURLEY Spouse - patient is the spouse of the insured [facility] [employer] [address] [place] [phone] [id number] OSVALDO HURLEY Spouse - patient is the spouse of the insured [employer] [address] [place] [address] HURLEYCALI GIORDANO Self - patient is the insured Medications Administered Medication Instructions Date of Administration Dosage Notes Mikalalog 12/03/2023 40 mg Medical (General) History Medical [...] ENCOUNTER, ProblemStatus: Active, Surgical History Surgery Date(Month/Year) Section, COMMENTS: 2x, ProblemS tatus: Active, Cyst Removal, COMMENTS: Lots , by Dr. Brandi Ellis, ProblemStatus: Active, Left Ring Finger, ProblemStatus: Active, 1984-09-09 Thyroid Lobectomy, COMMENTS: Left-02/2012 , ProblemStatus: Active,
--- OUTSIDE RECORDS SUMMARY | 2025-08-27 21:29 | XMS_ITS | Encounter Summary ---
Author Organization [facility] Address [address] [place] [address] Care Team Providers Care Waitstaff Captain Name Role Phone Soni Pemberton DO Primary Care Provider [phone]- [phone] Encounter Details Date Type Department Care Team ([facility] Contact Info) Description 08/23/2025 Orders Only [facility] [address] [place] [address] December, [place] [address] Screening mammogram, encounter for Social History Tobacco Use Types Packs/Day Years Used Date Smoking Tobacco: Never Passive Smoke Exposure: Never Smokeless Tobacco: Never Alcohol Use Standard Drinks/Week Comments Not Currently 0 (1 standard drink = 0.6 oz pur e alcohol) Comments Unknown Sex and Gender Information Value Date Recorded Sex Assigned at Not on file Legal Sex Female 2:26 PM CARE SERVICES MANAGER Gender Identity Not on file Sexual Orientation Not on file documented as of this encounter Plan of Treatment Upcoming Encounters Date Type Department Care Team (Late st Contact Info) Description 11/08/2025 8:00 AM CARE SERVICES MANAGER Office Visit [facility] [address] [place] [address] December, READING INSTRUCTOR[address] [place] [address] documented as of this encounter Procedures Procedure Name Priority Date/Time Associated Diagnosis Comments MAMMO 3D JUDIE SCREEN BILAT W OR WO CAD Routine 08/17/2025 Screening mammogram, encounter for documented in this encounter Results * MAMMO 3D JUDIE SCREEN BILAT W OR WO CAD (08/17/2025) Anatomical Region Laterality Modality Breast Bilateral Mammography December READING INSTRUCTOR MAMMO ORDERABLES Final Result documented in this encounter Visit Diagnoses Diagnosis Screening mammogram, encounter for documented in this encounter Care Teams Waitstaff Captain Relationship Specialty Start Date End Date Soni Pemberton DO [address] [place] [address] PCP - General Family Practice 08/10/25 documented as of this encounter
--- OUTSIDE RECORDS SUMMARY | 2025-08-27 21:29 | XMS_ITS | Clinical Summary ---
Author Organization [facility] Address [address] [place] [phone] Phone Care Team Providers Care Financial Service Professional Name Role Phone Soni Pemberton DO Primary Care Provider [phone] Allergies Active Allergy Reactions Criticality Noted Date Comments Codeine Other (See Comments) 06/07/2025 Makes stomach hurt Latex Rash Low 06/07/2025 Meloxicam Other (See Comments) 06/07/2025 Adds fluid Oxycodone Rash Low 06/07/2025 Triamcinolone Other (See Comments) 08/10/2025 Ate skin off Medications ferrous sulfate 325 mg (65 mg iron) tablet Take 325 mg by mouth daily. Active loratadine (CLARITIN) 10 mg tablet Take 10 mg by mouth 2 times daily. Active torsemide (DEMADEX) 20 mg tablet Take 20 mg by mouth daily. Active potassium CHLORIDE (K-DUR,KLOR-CON M20) 20 mEq Extended Release tablet Take 20 mEq by mouth daily. Active omeprazole (PriLOSEC) 20 mg Capsule, Delayed Release(E.C.)Indic ations:Gastroesoph ageal reflux disease, unspecified whether esophagitis present Take 1 Capsule (20 mg) by mouth daily. 90 Capsule 1 06/07/20 25 Active montelukast (SINGULAIR) 10 mg tabletIndications: Mild reactive airways disease, unspecified whether persistent Take 1 Tablet (10 mg) by mouth daily at bedtime. 90 Tablet 1 06/07/20 25 Active pramipexole (MIRAPEX) 1 mg TabletIndications: RLS (restless legs syndrome) Take 1 Tablet (1 mg) by mouth daily at bedtime. 90 Tablet 1 06/07/20 25 Active colestipoL (COLESTID) 1 gram tabletIndications: Mixed hyperlipidemia Take 1 Tablet (1 Gram) by mouth 2 times daily. 90 Tablet 1 06/07/20 25 Active albuterol sulfate 90 mcg/Actuation inhalerIndications :Mild reactive airways disease, unspecified whether persistent INHALE 2 PUFFS BY MOUTH EVERY 6 HOURS NEEDED FOR SHORTNESS OF BREATH OR WHEEZING 9 Gram 3 07/22/20 25 Active budesonide-formote roL (Breyna) 80-4.5 mcg/actuation HFA Aerosol InhalerIndications :Mild reactive airways disease, unspecified whether persistent INHALE 2 PUFFS TWICE DAILY 11 Gram 1 07/28/20 25 Active benzonatate (TESSALON) 200 mg capsuleIndications :Acute bronchitis, unspecified organism Take 1 Capsule (200 mg) by mouth 3 times daily as needed for Cough. 60 Capsule 08/10/20 25 Active fluconazole (DIFLUCAN) 100 mg tabletIndications: Antibiotic-induced yeast infection Take 1 Tablet (100 mg) by mouth daily. 3 Tablet 1 08/10/20 25 Active phentermine (ADIPEX P) 37.5 mg tabletIndications: Morbid obesity with body mass index (BMI) of 40.0 or higher (CMS/HCC) Take 1 Tablet (37.5 mg) by mouth daily before breakfast. 30 Tablet 2 08/10/20 25 Active phentermine (ADIPEX P) 37.5 mg tabletIndications: Morbid obesity with body mass index (BMI) of 40.0 or higher (CMS/HCC) Take 1 Tablet (37.5 mg) by mouth daily before breakfast. 30 Tablet 2 06/09/20 25 025 Discontinu ed(Reorder ) predniSONE (DELTASONE) 20 mg tabletIndications: Acute bronchitis, unspecified organism Take 1 Tablet (20 mg) by mouth 2 times daily with meals for 5 days. 10 Tablet 08/10/20 25 025 doxycycline hyclate (VIBRAMYCIN) 100 mg tabletIndications: Acute bronchitis, unspecified organism Take 1 Tablet (100 mg) by mouth 2 times daily for 5 days. 10 Tablet 08/10/20 25 025 Active Problems Problem Noted Date Diagnosed Date RLS (restless legs syndrome) 06/07/2025 Encounters Date Type Department Care Team Description 08/24/2025 External Device Data STL ABSTRACTION Provider, Abstract 08/23/2025 Results Follow-Up [facility] [address] [place] [address] [place], December, WOMEN'S ACTIVITIES ADVISER MAMMO 3D JUDIE SCREEN BILAT W OR WO CAD 08/23/2025 Orders Only [facility] [address] [place] [address] Urbano, December, WOMEN'S ACTIVITIES ADVISER Screening mammogram, encounter for 08/17/2025 External Device Data STL ABSTRACTION Provider, Abstract 08/10/2025 12:40 PM BANJO REPAIRER Office Visit [facility] [address] [place] [address] Urbano, December, WOMEN'S ACTIVITIES ADVISER Acute bronchitis, unspecified organism (Primary Dx); Antibiotic-induced yeast infection; Morbid obesity with body mass index (BMI) of 40.0 or higher ([facility]); Screening mammogram, encounter for 08/10/2025 Refill [facility] [address] [place] [address] Soni Pemberton, Morbid obesity with body mass index (BMI) of 40.0 or higher (CMS/HCC) 07/29/2025 Refill [facility] [address] [place] [address] Urbano, December, WOMEN'S ACTIVITIES ADVISER Mild reactive airways disease, unspecified whether persistent 07/28/2025 Refill [facility] [address] [place] [address] [place]rbano, December, WOMEN'S ACTIVITIES ADVISER Mild reactive airways disease, unspecified whether persistent 07/27/2025 External Device Data STL ABSTRACTION Provider, Abstract 07/22/2025 Refill [facility] [address] [place] [address] Urbano, December, WOMEN'S ACTIVITIES ADVISER Mild reactive airways disease, unspecified whether persistent 07/15/2025 Orders Only [facility] [address] [place] [address] December, Encounter for screening colonoscopy (Primary Dx); Positive colorectal cancer screening using Cologuard test 07/15/2025 Results Follow-Up [facility] [address] [place] [address] December, WOMEN'S ACTIVITIES ADVISER COLON CANCER SCREEN, STOOL DNA 07/06/2025 External Device Data STL ABSTRACTION Provider, Abstract 06/30/2025 External Device Data STL ABSTRACTION Provider, Abstract 06/29/2025 External Device Data STL ABSTRACTION Provider, Abstract 06/23/2025 Orders Only [facility] [address] [place] [address] December, WOMEN'S ACTIVITIES ADVISER Encounter for colorectal cancer screening using Cologuard test (Primary Dx) 06/09/2025 Telephone [facility] [address] [place] [address] Soni Pemberton, DO Cologuard; Provider Call 06/08/2025 External Device Data STL ABSTRACTION Provider, Abstract 06/08/2025 External Device Data STL ABSTRACTION Provider, Abstract 06/08/2025 External Device Data STL ABSTRACTION Provider, Abstract 06/08/2025 Telephone [facility] [address] [place] [address] December, WOMEN'S ACTIVITIES ADVISER Medication Assistance 06/08/2025 Results Follow-Up [facility] [address] [place] [address] December, IRON, TIBC, AND PERCENT SATURATION, LIPID PANEL, COMPREHENSIVE METABOLIC PANEL, Additional followed-up results: 2 06/07/2025 8:00 AM CDT Office Visit [facility] [address] [place] [address] December, WOMEN'S ACTIVITIES ADVISER Encounter to establish care (Primary Dx); Morbid obesity with body mass index (BMI) of 40.0 or higher ([facility]); Iron deficiency anemia, unspecified iron deficiency anemia type; RLS (restless legs syndrome); Localized swelling of both lower extremities; Gastroesophageal reflux disease, unspecified whether esophagitis present; Mixed hyperlipidemia; Mild reactive airways disease, unspecified whether persistent; Encounter for colorectal cancer screening using Cologuard test from Last 3 Months Social History Tobacco Use Types Packs/Day Years Used Date Smoking Tobacco: Never Passive Smoke Exposure: Never Smokeless Tobacco: Never Tobacco Cessation:Counseling Given: No Alcohol Use Standard Drinks/Week Comments Not Currently 0 (1 standard drink = 0.6 oz pur e alcohol) Comments Unknown Sex and Gender Information Value Date Recorded Sex Assigned at Not on file Legal Sex Female 2:26 PM BANJO REPAIRER Gender Identity Not on file Sexual Orientation Not on file Last Filed Vital Signs Vital Sign Reading Time Taken Comments Blood Pressure 120/80 08/10/2025 1:18 PM BANJO REPAIRER Pulse 84 08/10/2025 1:18 PM BANJO REPAIRER Temperature 36.8 C (98.2 F) 08/10/2025 1:18 PM BANJO REPAIRER Respiratory Rate 18 08/10/2025 1:18 PM BANJO REPAIRER Oxygen Saturation 97% 08/10/2025 1:18 PM BANJO REPAIRER Inhaled Oxygen Concentration - - Weight 117.1 kg (258 lb 3.2 oz) 08/10/2025 1:18 PM BANJO REPAIRER Height 154.9 cm (5' 1 ) 08/10/2025 1:18 PM BANJO REPAIRER Body Mass Index 48.79 08/10/2025 1:18 PM BANJO REPAIRER Plan of Treatment Upcoming Encounters Date Type Department Care Team (Late st Contact Info) Description 11/08/2025 8:00 AM BANJO REPAIRER Office Visit [facility] [address] [facility] [phone] YolieDecember, WOMEN'S ACTIVITIES ADVISER [address] [place] [phone] Health Maintenance Due Date Last Done Comments Pre-Diabetes and Diabetes Screening 1967 FIT/FOBT Q 1 YEAR (AUTO ORDER) 1985 HEPATITIS B VACCINES (1 of 3 - 19+ 3-dose series) 1986 HPV/Cotest (21-29) 1988 CERVICAL CANCER SCREENING 1997 HPV/Cotest (30-65) 1997 PAP SMEAR 1997 FIT/FOBT Q 1 year 2012 Flex Sig/CT Colonography Q 5 years 2012 ZOSTER VACCINE (1 of 2) 2017 FLEX SIG/CT COLONOGRAPHY Q 5 YEARS (AUTO ORDER) 01/20/2024 01/19/2019, 01/19/2019 [place] Prev entative Visit/Annual Wellness Visit 09/09/2024 INFLUENZA VACCINE (#1) 2025 DTAP/TDAP/TD VACCINES (2 - Td or Tdap) 08/16/2026 BREAST CANCER SCREENING 08/17/2026 08/17/2025 FIT-DNA Q 3 years 07/08/2028 07/08/2025 FIT/ DNA Q 3 YEARS (AUTO ORDER) 07/08/2028 , 07/08/2025 COLORECTAL CANCER SCREENING (AUTO ORDER) 01/19/2029 01/19/2019 COLORECTAL SCREENING 01/19/2029 01/19/2019 Colorectal Cancer Screening (AUTO ORDER) 01/19/2029 Colorectal Cancer Screening 01/19/2029 Procedures Procedure Name Priority Date/Time Associated Diagnosis Comments MAMMO 3D JUDIE SCREEN BILAT W OR WO CAD Routine 08/17/2025 Screening mammogram, encounter for COLON CANCER SCREEN, STOOL DNA Routine 07/08/2025 10:00 AM CDT Encounter for colorectal cancer screening using Cologuard test CBC WITH DIFFERENTIAL Routine 06/07/2025 9:11 AM CDT Morbid obesity with body mass index (BMI) of 40.0 or higher (CMS/HCC) COMPREHENSIVE METABOLIC PANEL Routine 06/07/2025 9:11 AM CDT Morbid obesity with body mass index (BMI) of 40.0 or higher (CMS/HCC) TSH Routine 06/07/2025 9:11 AM CDT Morbid obesity with body mass index (BMI) of 40.0 or higher (CMS/HCC) LIPID PANEL Routine 06/07/2025 9:11 AM CDT Morbid obesity with body mass index (BMI) of 40.0 or higher (CMS/HCC) IRON, TIBC, AND PERCENT SATURATION Routine 06/07/2025 9:11 AM CDT Iron deficiency anemia, unspecified iron deficiency anemia type from Last 3 Months Results * MAMMO 3D JUDIE SCREEN BILAT W OR WO CAD (08/17/2025) Anatomical Region Laterality Modality Breast Bilateral Mammography December U[place]ano [facility] MAMMO ORDERABLES Final Result * (ABNORMAL) COLON CANCER SCREEN, STOOL DNA (07/08/2025 10:00 AM CDT) COLOGUARD RESULT Positive( A) Negative [facility] Comment: The Cologuard (TM) test was performed on this specimen. POSITIVE TEST RESULT. A positive Cologuard result should be followed with a colonoscopy or visual examination of the colon. The normal value (reference range) for this assay is negative. TEST DESCRIPTION: Composite algorithmic analysis of stool DNA-biomarkers with hemoglobin immunoassay. Quantitative values of individual biomarkers are not reportable and are not associated with individual biomarker result reference ranges. Cologuard is intended for colorectal cancer screening of adults of either sex, 45 years or older, who are at average-risk for colorectal cancer (CRC). Cologuard has been approved for use by the U.S. FDA. The performance of Cologuard was established in a cross sectional study of average-risk adults aged 50-84. Cologuard performance in patients ages 45 to 49 years was estimated by sub-group analysis of near-age groups. Colonoscopies performed for a positive result may find as the most clinically significant lesion: colorectal cancer [4.0%], advanced adenoma (including sessile serrated polyps greater than or equal to 1cm diameter) [20%] or non- advanced adenoma [31%]; or no colorectal neoplasia [45%]. These estimates are derived from a prospective cross-sectional screening study of 10,000 individuals at average risk for colorectal cancer who were screened with both Cologuard and colonoscopy. (Lucio Ventura et al, N Engl J Med 2014;370(14):3157-5035.) Cologuard may produce a false negative or false positive result (no colorectal cancer or precancerous polyp present at colonoscopy follow up). A negative Cologuard test result does not guarantee the absence of CRC or advanced adenoma (pre-cancer). The current Cologuard screening interval is every 3 years. ([place] [employer] Society and U.S. Multi-Society Task Force). Cologuard performance data in a 10,000 patient pivotal study using colonoscopy as the reference method can be accessed at the following location: www.[employer]/results. Additional description of the Cologuard test process, warnings and precautions can be found at www.[employer]. Stool STOOL SPECIMEN / Unknown 07/08/2025 10:00 AM CDT 07/10/2025 1:06 PM CDT December WOMEN'S ACTIVITIES ADVISER BODY FLUIDS AND STOOLS Final Res ult [facility] CLIA # [id number] [address], [address] [place] [address] * IRON, TIBC, AND PERCENT SATURATION (06/07/2025 9:11 AM CDT) IRON 84 45 - 160 mcg/dL [facility] TIBC 408 250 - 450 mcg/dL (calc) [facility] IRON % SATURATION 21 16 - 45 % (calc) [facility] Comment: Test Performed at: [facility] [address] [place] [address] Saleem Fernandez MD Blood 06/07/2025 9:11 AM CDT 06/08/2025 3:44 AM CDT December WOMEN'S ACTIVITIES ADVISER CHEMISTRY ORDERABLES Final Resul t [facility] [phone] [facility] [address] [place] [address] * (ABNORMAL) CBC WITH DIFFERENTIAL (06/07/2025 9:11 AM CDT) Pathologist [facility] WBC 7.5 3.8 - 10.8 Thousand/u L [facility] RBC 5.49(H) 3.80 - 5.10 Million/uL [facility] HEMOGLOBIN 14.2 11.7 - 15.5 g/dL [facility] HEMATOCRIT 46.7(H) 35.0 - 45.0 % [facility] MCV 85.1 80.0 - 100.0 fL [facility] MCH 25.9(L) 27.0 - 33.0 pg [facility] MCHC 30.4(L) 32.0 - 36.0 g/dL [facility] Comment: For adults, a slight decrease in the calculated MCHC value (in the range of 30 to 32 g/dL) is most likely not clinically significant; however, it should be interpreted with caution in correlation with other red cell parameters and the patient's clinical condition. RDW 14.2 11.0 - 15.0 % [facility] PLATELETS 205 140 - 400 Thousand/u L [facility] MPV 11.1 7.5 - 12.5 fL [facility] NEUTROPHIL ABSOLUTE 5,310 1,500 - 7,800 cells/uL [facility] LYMPHOCYTE ABSOLUTE 1,560 850 - 3,900 cells/uL [facility] MONOCYTE ABSOLUTE 510 200 - 950 cells/uL [facility] EOSINOPHIL ABSOLUTE 90 15 - 500 cells/uL [facility] BASOPHILS ABSOLUTE 30 0 - 200 cells/uL [facility] NEUTROPHIL 70.8 % [facility] LYMPHOCYTES 20.8 % [facility] MONOCYTE 6.8 % [facility] EOSINOPHILS 1.2 % [facility] BASOPHILS 0.4 % [facility] Comment: Test Performed at: [facility] [address] [place] [address] [facility] Blood 06/07/2025 9:11 AM CDT 06/08/2025 3:44 AM CDT December [facility] HEMATOLOGY ORDERABLES Final Resu lt Performing Organization Address [facility]/ZIP Co de Phone Number [facility] [phone] [facility] [address] [place] [address] * TSH (06/07/2025 9:11 AM CDT) TSH 4.11 0.40 - 4.50 mIU/L [facility] Comment: Test Performed at: [facility] [address] [place] [address] [facility] Blood 06/07/2025 9:11 AM CDT 06/08/2025 3:44 AM CDT December [facility] CHEMISTRY ORDERABLES Final Resul t Performing Organization Address [facility] Co de Phone Number [facility] [phone] [facility] [address] [place] [phone] * (ABNORMAL) LIPID PANEL (06/07/2025 9:11 AM CDT) CHOLESTEROL 203(H) <200 mg/dL [facility] HDL 66 > OR = 50 mg/dL [facility] TRIGLYCERIDE 81 <150 mg/dL [facility] LDL CALCULATED 119(H) mg/dL (calc) [facility] Comment: Reference range: <100 Desirable range <100 mg/dL for primary prevention; <70 mg/dL for patients with CHD or diabetic patients with > or = 2 CHD risk factors. LDL-C is now calculated using the Solo calculation, which is a validated novel method providing better accuracy than the Friedewald equation in the estimation of LDL-C. Spencer DOMINGUEZ et al. STACY. 2013;310(19): 2390-7631 (http://education.Freedu.in/faq/DRG286) CHOL/HDL RATIO 3.1 <5.0 (calc) [facility] NON-HDL CHOLESTEROL 137(H) <130 mg/dL (calc) [facility] Comment: For patients with diabetes plus 1 major ASCVD risk factor, treating to a non-HDL-C goal of <100 mg/dL (LDL-C of <70 mg/dL) is considered a therapeutic option. Test Performed at: [facility] [address] [place] [address] Saleem Fernandez MD Blood 06/07/2025 9:11 AM CDT 06/08/2025 3:44 AM CDT December WOMEN'S ACTIVITIES ADVISER CHEMISTRY ORDERABLES Final Resul t [facility] [phone] [facility] [address] * COMPREHENSIVE METABOLIC PANEL (06/07/2025 9:11 AM CDT) GLUCOSE 90 65 - 99 mg/dL [facility] Comment: Fasting reference interval BUN 13 7 - 25 mg/dL [facility] CREATININE 0.76 0.50 - 1.03 mg/dL [facility] GFR 91 > OR = 60 mL/min/1. 73m2 [facility] BUN/CREAT RATIO SEE NOTE: 6 - 22 (calc) [facility] Comment: Not Reported: BUN and Creatinine are within reference range. SODIUM 140 135 - 146 mmol/L [facility] POTASSIUM 4.7 3.5 - 5.3 mmol/L [facility] CHLORIDE 103 98 - 110 mmol/L [facility] CO2 26 20 - 32 mmol/L [facility] CALCIUM 9.2 8.6 - 10.4 mg/dL [facility] TOTAL PROTEIN 7.0 6.1 - 8.1 g/dL [facility] ALBUMIN 4.4 3.6 - 5.1 g/dL [facility] GLOBULIN 2.6 1.9 - 3.7 g/dL (calc) [facility] ALBUMIN/GLOBULIN RATIO 1.7 1.0 - 2.5 (calc) [facility] BILIRUBIN TOTAL 0.5 0.2 - 1.2 mg/dL [facility] ALKALINE PHOSPHATASE 116 37 - 153 U/L [facility] AST 21 10 - 35 U/L [facility] ALT 27 6 - 29 U/L [facility] Comment: Test Performed at: [facility] [address] [address] [place] [place] [address] Saleem Fernandez MD Blood 06/07/2025 9:11 AM CDT 06/08/2025 3:44 AM CDT December [facility] CHEMISTRY ORDERABLES Final Resul t [facility] [phone] [facility] [address] [address] [place] [phone] from Last 3 Months Insurance [facility] MEDICARE HMO [place] [id number] Care Teams Financial Service Professional Relationship Specialty Start Date End Date Soni Pemberton DO [address] [place] [facility] [place] [address] PCP - General Family Practice 08/10/25
--- OUTSIDE RECORDS SUMMARY | 2025-08-27 21:30 | XMS_ITS | Encounter Summary ---
Author Organization [facility] Address [address] [place] [address] Care Team Providers Care Officer Lieutenant Name Role Phone Soni Pemberton DO Primary Care Provider [phone] Encounter Details Date Type Department Care Team (Late st Contact Info) Description 08/24/2025 External Device Data STL ABSTRACTION Provider, Abstract NO ADDRESS ON FILE Social History Tobacco Use Types Packs/Day Years Used Date Smoking Tobacco: Never Passive Smoke Exposure: Never Smokeless Tobacco: Never Alcohol Use Standard Drinks/Week Comments Not Currently 0 (1 standard drink = 0.6 oz pur e alcohol) Comments Unknown Sex and Gender Information Value Date Recorded Sex Assigned at Not on file Legal Sex Female 2:26 PM MANAGEMENT SCIENTIST Gender Identity Not on file Sexual Orientation Not on file documented as of this encounter Plan of Treatment Upcoming Encounters Date Type Department Care Team (Late st Contact Info) Description 11/08/2025 8:00 AM MANAGEMENT SCIENTIST Office Visit [facility] [address] [place] [address] December, [facility] [address] [place] [phone] documented as of this encounter Visit Diagnoses Not on filedocumented in this encounter Care Teams Officer Lieutenant Relationship Specialty Start Date End Date Soni Pemberton DO [address] [place] [phone] PCP - General Family Practice 08/10/25 documented as of this encounter
[2025-08-27 21:35] VITALS: BP 154/96; PULSE 74; RESP 16; TEMP 36.6; O2SAT 96; BMI 49.8
[2025-08-27 22:34] VITALS: BP 188/77; PULSE 74; RESP 18; O2SAT 94
--- NOTE | 2025-08-27 22:47 | W.ED.EXTPRO ---
HPI - Extremity Problem General: Chief complaint: Extremity Problem,Nontraumatic Stated complaint: thinks has blood clot in left calf Time Seen by Provider: 08/27/25 22:34 History of Present Illness: Patient is a 60-year-old female with past medical history of COPD, DVT, GERD who presents to the ED with left calf pain and tightness over the last day. Was treated for a seemingly unprovoked blood clot earlier this year, was on 3 months of dabigatran which she has finished. No recent trauma, no fevers, no loss of motor or sensation in the affected extremity. Does not recall any trauma, no recent immobilization, no fevers, no shortness of breath, no chest pain. Associated symptoms: Deny chest pain, fever(s) or rash Related Data Home Medications ?Medication ?Instructions ?Recorded ?Confirmed loratadine 10 mg tablet (Claritin) 10 mg PO DAILY 02/16/22 07/28/25 phentermine 37.5 mg tablet mg PO 07/28/25 07/28/25 Previous Rx's ?Medication ?Instructions ?Recorded torsemide 20 mg tablet 20 mg PO QAM #90 tabs 10/17/23 fluticasone propionate 50 1 spray intranasal DAILY PRN 11/11/23 mcg/actuation nasal allergy symptoms #16 grams spray,suspension (Flonase Allergy Relief) fluticasone 500 mcg-salmeterol 50 1 inh inhalation BID #60 ea 10/05/24 mcg/dose blistr powdr for inhalation (Advair Diskus) albuterol sulfate 90 mcg/actuation 2 inh inhalation Q6H PRN shortness 10/13/24 breath activated powder inhaler of breath or wheezing #1 ea diclofenac sodium 75 mg 75 mg PO Q12H PRN pain #20 tabs 04/02/25 tablet,delayed release montelukast 10 mg tablet See Rx Instructions .Route 05/03/25 .COMPLEX #90 tabs colestipol 1 gram tablet (Colestid) 1 g PO BID #90 tabs 05/04/25 omeprazole 20 mg capsule,delayed 20 mg PO DAILY #90 caps 05/04/25 release potassium chloride 20 mEq 20 meq PO DAILY #90 tabs 05/04/25 tablet,extended release pramipexole 1 mg tablet 1 mg PO .qhs #90 tabs 05/04/25 Allergies Allergy/AdvReac Type Severity Reaction Status Date / Time codeine Allergy nausea Verified 08/27/25 21:40 Corticosteroids Allergy rash Verified 08/27/25 21:40 (Glucocorticoids) gabapentin Allergy retain Verified 08/27/25 21:40 fluid latex Allergy rash Verified 08/27/25 21:40 meloxicam (From Mobic) Allergy Unknown Verified 08/27/25 21:40 oxycodone Allergy rash Verified 08/27/25 21:40 Review of Systems General: Reports: 10 or more systems reviewed and unremarkable except in HPI and below Const: Denies: fever(s) or chills Eyes: Denies: change in vision or eye discharge Card: Denies: chest pain, palpitations or swelling of feet/ankles Resp: Denies: dyspnea or productive cough GI: Denies: abdominal pain or diarrhea Musc: Reports: extremity pain and extremity swelling Skin/Breast: Denies: rash or jaundice Neuro: Denies: headache(s), numbness in extremities or weakness in extremities Otoniel/Lymph: Denies: easy bruising or easy bleeding PFSH ED PFSH: Medical History (Updated 08/28/25 @ 01:53 by Grabiel Thornton DO) History of DVT of lower extremity Initial diagnosis August 2020 for 3 months anticoagulation appeared chronic on ultrasound URI with cough and congestion Otitis media Extensor tendinitis of foot Edema Seasonal allergies Restless legs syndrome Surgical History Hx laparoscopic cholecystectomy Hx of meniscectomy of right knee Hx of colonoscopy with polypectomy 3 yrs ago History of section History of thumb surgery Bilateral History of partial thyroidectomy History of appendectomy History of elbow surgery Both Family History Other Anesthesia complication CAD (coronary artery disease) Hyperlipidemia Hypertension Lung disease Stroke Denies family history of Diabetes Clotting disorder Dementia Psychiatric illness Chronic kidney disease (CKD) Suicide Bleeding disorder Family history of premature coronary artery disease Cancer Social History Smoking and tobacco/nicotine status: former use of tobacco/nicotine Quit status (tobacco/nicotine): has quit using Former quit date comment: 2015 Alcohol intake: never Substance/Drug Use: never Adopted: No Lives independently: Yes Household members: spouse Marital status: Current occupational status: disabled Whit/Latter-Day: Rastafarian Special whit needs: No Agree to transfusion: Yes Physical Exam Narrative: EXAM NARRATIVE: Patient overall well-appearing, afebrile and vital signs stable on arrival, no acute distress. head normocephalic, PERRL, moist mucous membranes, no cervical LAD. breathing comfortably on RA, saturating well, clear BL and no adventitious breath sounds, able to speak in full sentences without getting SOB, no signs of respiratory distress. NSR with no murmurs, no leg swelling, 2+ pulses throughout, good cap refill. Abdomen soft, nontender, nondistended, no localizing or peritonitic signs, no overlying skin changes, no CVA ttp. Left calf with mild swelling and mild diffuse tenderness compared to the right but no bruising, warmth, other extremities without apparent deformity or injury. GCS 15, AAOx4, able to answer questions and follow commands appropriately, moving all 4 extremities symmetrically and spontaneoulsy. Normal mood and affect. Course Vital Signs: Vital signs: Vital Signs Temperature 97.8 F 08/27/25 21:35 Pulse Rate 65 08/28/25 01:59 Respiratory Rate 17 08/28/25 01:59 Blood Pressure 171/80 08/28/25 01:59 Pulse Oximetry 95 08/28/25 01:59 Oxygen Delivery Me thod Room Air 08/27/25 21:35 MDM - Extremity (Nontraumatic) Medical Decision Making -ddx: DVT, muscle cramp, MSK sprain, considered but less likely fracture, dislocation - Patient with 1 day of atraumatic left calf pain, has had history of DVT, seemingly unprovoked, was on 3 months of Dabigatran and empirically taken off, today's ultrasound showed the chronic occlusion of which she had last time but nothing acute and nothing in her calf. In absence of this and just the chronic partial occlusion, did not start blood thinners after discussion with patient especially with high side effects associated with it. She said she takes diuretics but only as needed when she has leg swelling and has not done this for couple weeks to make severe electrolyte abnormality unlikely. No trauma based on her history and does not appear so on exam so no x-ray needed. Offered basic labs to further investigate but she declined and so we agreed to have her treated like a small MSK injury and see if it improved on its own with supportive care including heating pads, icing, alternating Tylenol and ibuprofen as needed and to return here or go to her primary in a week's time for repeat ultrasound if the symptoms persist. Discharged in stable condition with strict return precautions given.2606 XR interpretation done by ED provider, pending radiology final review Discharge Plan Discharge Patient Disposition: Home Clinical Impression: Leg cramp Condition: Stable Prescriptions: No Action fluticasone propionate [Flonase Allergy Relief] 50 mcg/actuation spray,suspension 1 spray intranasal DAILY PRN (Reason: allergy symptoms) Qty: 16 0RF Rx Instructions: administer into each nostril phentermine 37.5 mg tablet PO loratadine [Claritin] 10 mg tablet 10 mg PO DAILY torsemide 20 mg tablet 20 mg PO QAM Qty: 90 1RF fluticasone propion-salmeterol [Advair Diskus] 500-50 mcg/dose blister with device 1 inh inhalation BID Qty: 60 3RF albuterol sulfate 90 mcg/actuation aerosol powdr breath activated 2 inh inhalation Q6H PRN (Reason: shortness of breath or wheezing) Qty: 1 3RF montelukast 10 mg tablet See Rx Instructions .ROUTE .COMPLEX Qty: 90 1RF Dose Instruction: Take 1 tablet by mouth once daily Rx Instructions: Take 1 tablet by mouth once daily pramipexole 1 mg tablet 1 mg PO .qhs Qty: 90 1RF colestipol [Colestid] 1 gram tablet 1 g PO BID Qty: 90 0RF omeprazole 20 mg capsule,delayed release(DR/EC) 20 mg PO DAILY Qty: 90 1RF potassium chloride 20 mEq tablet extended release 20 meq PO DAILY Qty: 90 1RF diclofenac sodium 75 mg tablet,delayed release (DR/EC) 75 mg PO Q12H PRN (Reason: pain) Qty: 20 0RF Discharge Orders: Discharge ED (Routine); Ordered 08/28/25 Ordered By: Grabiel Thornton Referrals: , [employer] [Primary Care Provider, Nurse Practitioner] Discharge Diet: Usual diet Discharge Activity: Resume usual activity Patient Instructions: Opioid Safety, Pain Management, Patient Portal & Sharri Instructions Activity Restrictions/Additional Instructions: You were seen for your left leg cramping and pain, you were evaluated with an ultrasound which showed there was no calf blood clot, you have a chronic small upper leg blood clot but since there is nothing new today, you do not need to be restarted on blood thinners, there could be small superficial clots in other veins that do not require treatment either. To try helping with your symptoms, treat this as a small injury, keep it elevated when at rest, use heating pads every 20 minutes for a few hours for the next few days. Alternate ibuprofen 400 mg and Tylenol 650 mg every 4 hours as needed for pain. If the cramping or spasms, pain gets worse or you have significant swelling or bruising, return to the ED for further evaluation. Print Language: Israeli Coding Level of Care Code ED Industrial Illuminating Engineer for Levi Morales
[2025-08-27 23:00] VITALS: BP 146/91; PULSE 74; RESP 17; O2SAT 94
[2025-08-27 23:37] VITALS: BP 170/93; PULSE 63; RESP 16; O2SAT 92
[2025-08-28 00:07] VITALS: BP 158/94; PULSE 71; RESP 18; O2SAT 97
[2025-08-28 00:40] VITALS: PULSE 67; RESP 18; O2SAT 97
[2025-08-28 01:00] VITALS: O2SAT 95
[2025-08-28 01:34] VITALS: BP 187/109; PULSE 66; RESP 18; O2SAT 92
[2025-08-28 01:59] VITALS: BP 171/80; PULSE 65; RESP 17; O2SAT 95
== END 2025-08-28 02:01 | disposition home or self-care (01) ==
PROVIDERS: Emergency Provider Student in an Organized Health Care Education/Training Program
DX: R25.2 Cramp and spasm (principal); Z87.891 Personal history of nicotine dependence
CPT/HCPCS: 93971; 99284

== ENCOUNTER 2025-09-07 07:39 | Day surgery (SDC) | payer MEDICARE, SELFPAY ==
[2025-09-07 07:56] VITALS: BP 179/104; PULSE 84; RESP 18; TEMP 36.6; O2SAT 95; BMI 49.6
--- NOTE | 2025-09-07 07:59 | ANES.PREANE2 ---
Pre-Anesthetic Assessment Height/Weight: Height 1.55 m Weight 119.295 kg Temp Pulse Resp BP Pulse Ox O2 Del Method 97.9 F 84 18 179/104 95 Room Air 09/07/25 07:56 09/07/25 07:56 09/07/25 07:56 09/07/25 07:56 09/07/25 07:56 09/07/25 07:56 Operation Date: 09/07/25 09:40 Proposed Procedures p Colonoscopy 52600 G0121 Z2.11(Not Applicable) - Enrrique Case MD Familial anesthetic complications: None Was Beta Colin taken within 24 hours: N/A Was Clonidine taken within 24 hours: N/A Last intake: Intake Last Liquid Date 09/06/25 Last Liquid Time 21:00 Last Solid Date 09/05/25 Last Solid Time 20:00 Social No alcohol and No tobacco Exam alert, oriented x 3, clear to auscultation bilaterally and regular rate & rhythm Airway Mallampati: Class III Dentition: full Pulmonary Asthma and Chronic Obstructive Pulmonary Disease CV/HEM Deep Vein Thrombosis GI Gastroesophageal Reflux Disease Metabolic Morbid Obesity Anesthetic Plan ASA status: 3 Anesthesia: MAC Risk of > 500 ml blood loss (7ml/kg in children): No Medications/Allergies Home Medications ?Medication ?Instructions ?Recorded ?Confirmed ?Last Taken ?Type loratadine 10 mg tablet (Claritin) 10 mg PO DAILY 02/16/22 09/07/25 09/06/25 History torsemide 20 mg tablet 20 mg PO QAM #90 tabs 10/17/23 09/07/25 Unknown Rx fluticasone propionate 50 1 spray intranasal DAILY PRN 11/11/23 09/07/25 Unknown Rx mcg/actuation nasal allergy symptoms #16 grams spray,suspension (Flonase Allergy Relief) albuterol sulfate 90 mcg/actuation 2 inh inhalation Q6H PRN shortness 10/13/24 09/07/25 09/06/25 Rx breath activated powder inhaler of breath or wheezing #1 ea colestipol 1 gram tablet (Colestid) 1 g PO BID #90 tabs 05/04/25 09/07/25 09/06/25 Rx omeprazole 20 mg capsule,delayed 20 mg PO DAILY #90 caps 05/04/25 09/07/25 09/07/25 Rx release potassium chloride 20 mEq 20 meq PO DAILY #90 tabs 05/04/25 09/07/25 Unknown Rx tablet,extended release pramipexole 1 mg tablet 1 mg PO .qhs #90 tabs 05/04/25 09/07/25 09/06/25 Rx phentermine 37.5 mg tablet 37.5 mg PO DAILY 07/28/25 09/07/25 08/30/25 History budesonide-formoterol HFA 80 2 puff inhalation BID 08/30/25 09/07/25 09/06/25 History mcg-4.5 mcg/actuation aerosol inhaler (Breyna) montelukast 10 mg tablet 10 mg PO DAILY 08/30/25 09/07/25 09/06/25 History Allergies Allergy/AdvReac Type Severity Reaction Status Date / Time codeine Allergy nausea Verified 09/07/25 07:55 Corticosteroids Allergy rash Verified 09/07/25 07:55 (Glucocorticoids) gabapentin Allergy retain Verified 09/07/25 07:55 fluid latex Allergy rash Verified 09/07/25 07:55 meloxicam (From Mobic) Allergy Unknown Verified 09/07/25 07:55 oxycodone Allergy rash Verified 09/07/25 07:55 [facility] Anesthesia Medical History (Updated 09/05/25 @ 00:00 by GIL Leigh) History of DVT of lower extremity Initial diagnosis August 2020 for 3 months anticoagulation appeared chronic on ultrasound URI with cough and congestion Otitis media Extensor tendinitis of foot Edema Seasonal allergies Restless legs syndrome Surgical History Hx laparoscopic cholecystectomy Hx of meniscectomy of right knee Hx of colonoscopy with polypectomy 3 yrs ago History of section History of thumb surgery Bilateral History of partial thyroidectomy History of appendectomy History of elbow surgery Both Family History Other Anesthesia complication CAD (coronary artery disease) Hyperlipidemia Hypertension Lung disease Stroke Denies family history of Diabetes Clotting disorder Dementia Psychiatric illness Chronic kidney disease (CKD) Suicide Bleeding disorder Family history of premature coronary artery disease Cancer Social History Smoking and tobacco/nicotine status: former use of tobacco/nicotine Quit status (tobacco/nicotine): has quit using Former quit date comment: 2016 Alcohol intake: never Substance/Drug Use: never Adopted: No Lives independently: Yes Household members: spouse Marital status: Current occupational status: disabled Whit/Alevism: Mosque Special whit needs: No Agree to transfusion: Yes Data Anesthesia Cardiac Studies: Echocardiogram 07/15/23
--- NOTE | 2025-09-07 08:12 | W.PM.OPSFHP ---
Same Day Surgery H&P Indication for Procedure/HPI DATE OF PROCEDURE: September 07, 2025 CHIEF COMPLAINT/INDICATIONFOR SURGICAL PROCEDURE: need for screening colonoscopy PREOP DIAGNOSIS: need for screening colonoscopy PLANNED PROCEDURE: Operation Date: 09/07/25 09:40 Proposed Procedures p Colonoscopy 10609 G0121 Z2.11(Not Applicable) - Enrrique Case MD Medications/Allergies* Home Medications ?Medication ?Instructions ?Recorded ?Confirmed ?Type loratadine 10 mg tablet (Claritin) 10 mg PO DAILY 02/16/22 09/07/25 History phentermine 37.5 mg tablet 37.5 mg PO DAILY 07/28/25 09/07/25 History budesonide-formoterol HFA 80 2 puff inhalation BID 08/30/25 09/07/25 History mcg-4.5 mcg/actuation aerosol inhaler (Breyna) montelukast 10 mg tablet 10 mg PO DAILY 08/30/25 09/07/25 History Allergies/Adverse Reactions Allergy/AdvReac Type Severity Reaction Status Date / Time codeine Allergy nausea Verified 09/07/25 07:55 Corticosteroids Allergy rash Verified 09/07/25 07:55 (Glucocorticoids) gabapentin Allergy retain Verified 09/07/25 07:55 fluid latex Allergy rash Verified 09/07/25 07:55 meloxicam (From Mobic) Allergy Unknown Verified 09/07/25 07:55 oxycodone Allergy rash Verified 09/07/25 07:55 Current Medications: Generic Name Dose Route Start Last Admin Trade Name Freq PRN Reason Stop Dose Admin Sodium Chloride 1,000 mls @ 15 mls/hr 09/07/25 07:45 09/07/25 08:05 Sodium Chloride 0.9% IV 09/08/25 07:44 15 mls/hr .Q24H PRN Administration COLONOSCOPY FLUIDS Pertinent History/Comorbid Conditions* Medical History (Updated 09/05/25 @ 00:00 by GIL Leigh) History of DVT of lower extremity Initial diagnosis August 2020 for 3 months anticoagulation appeared chronic on ultrasound URI with cough and congestion Otitis media Extensor tendinitis of foot Edema Seasonal allergies Restless legs syndrome Surgical History (Updated 04/16/23 @ 08:34 by Ariel Nugent DO) Hx laparoscopic cholecystectomy Hx of meniscectomy of right knee Hx of colonoscopy with polypectomy 3 yrs ago History of section History of thumb surgery Bilateral History of partial thyroidectomy History of appendectomy History of elbow surgery Both Family History (Updated 02/16/22 @ 13:29 by Anabella Ortiz LPN) CAD (coronary artery disease) Hyperlipidemia Anesthesia complication Lung disease Hypertension Stroke Denies family history of Diabetes Clotting disorder Dementia Psychiatric illness Chronic kidney disease (CKD) Suicide Bleeding disorder Family history of premature coronary artery disease Cancer Social History Smoking and tobacco/nicotine status: former use of tobacco/nicotine Quit status (tobacco/nicotine): has quit using Former quit date comment: 2015 Alcohol intake: never Substance/Drug Use: never Adopted: No Lives independently: Yes Household members: spouse Marital status: Current occupational status: disabled Whit/Hoahaoism: Islam Special whit needs: No Agree to transfusion: Yes Pertinent Exam Findings alert, oriented x 3, clear to auscultation bilaterally and regular rate & rhythm Recommendations Surgery/Procedure today Coding Level of Care Code Acute Code for Levi Morales
[2025-09-07 09:35] VITALS: BP 155/87; PULSE 85; RESP 18; TEMP 36.2; O2SAT 97
[2025-09-07 09:52] VITALS: BP 162/98; PULSE 80; RESP 18; O2SAT 95
--- NOTE | 2025-09-07 10:10 | ANE.PACU2 ---
Inpatient post-anesthesia follow up: Airway intact: Yes Vital signs: Temperature 97.1 F Pulse Rate 80 Respiratory Rate 18 Blood Pressure 162/98 Pulse Oximetry 95 Oxygen Delivery Me thod Room Air Oxygen Flow Rate Fraction of Inspir ed Oxygen Hydration adequate: Yes Nausea and vomiting: No Pain level: 1 Mental status: Baseline
== END 2025-09-07 10:12 | disposition home or self-care (01) ==
PROVIDERS: Visit Provider Surgery
PROC: 0DJD8ZZ Inspection of Lower Intestinal Tract, Via Natural or Artificial Opening Endoscopic (ICD-10-PCS; CPT 45378; principal; 2025-09-07 09:40)
DX: Z12.11 Encounter for screening for malignant neoplasm of colon (principal); K63.5 Polyp of colon; Z86.718 Personal history of other venous thrombosis and embolism; Z87.891 Personal history of nicotine dependence; K21.9 Gastro-esophageal reflux disease without esophagitis; J44.9 Chronic obstructive pulmonary disease, unspecified; E66.01 Morbid (severe) obesity due to excess calories; Z68.42 Body mass index [BMI] 45.0-49.9, adult
CPT/HCPCS: 45385; 88305; J2704; J7030